=== PATIENT | male | born 1950 | race Caucasian/White ===

== ENCOUNTER 2021-02-09 12:38 | Outpatient (CLI) | payer MEDICARE, SELFPAY ==
--- NOTE | 2021-02-09 12:45 | USCV_ITS ---
Mauro Green Age: 70 Gender: M : 1950 Exam Date: 02/09/2021 13:00 Ordering Phys: Frederic Hernández MD ([email or web address]) Technologist: Rehana Moran [place]am [place] [facility] [place] Indication: CARDIOMYPATHY BP: 120 / 65 HR: 84 Rhythm: Sinus Technical Quality: Good MEASUREMENTS (Male / Female) Normal Values 2D ECHO LV Diastolic Diameter PLAX 6.8 cm 4.2 - 5.9 / 3.9 - 5.3 cm LV Systolic Diameter PLAX 5.8 cm IVS Diastolic Thickness 1.1 cm 0.6 - 1.0 / 0.6 - 0.9 cm IVS Systolic Thickness 1.7 cm LVPW Diastolic Thickness 1.4 cm 0.6 - 1.0 / 0.6 - 0.9 cm LVPW Systolic Thickness 1.8 cm LVOT Diameter 2.0 cm LV Ejection Fraction 2D Teich 32.9 % LV Ejection Fraction MOD 2C 21.9 % LV Ejection Fraction 2C AL 20.3 % LA Diameter 4.3 cm LA Width 3.7 cm LA Height 4.5 cm RA Width 3.2 cm RA Height 4.0 cm Aorta at Sinotubular Diameter 2.7 cm M-MODE Aortic Annulus Diameter 3.4 cm LA Ao Ratio MM 1.2 MV E Point Septal Separation 2.2 cm DOPPLER AV Peak Velocity 130.0 cm/s LVOT Peak Velocity 51.0 cm/s AV Area Cont Eq vti 1.3 cm squared AV Area Cont Eq pk 1.2 cm squared MV Peak Velocity 108.0 cm/s MV Area PHT 4.6 cm squared Mitral E to A Ratio 0.7 MV E' Velocity 41.5 cm/s Mitral E to MV E' Ratio 10.9 Mitral E to LV E' Lateral Ratio 8.5 Mitral E to LV E' Septal Ratio 15.5 TR Peak Velocity 259.4 cm/s TR Peak Gradient 26.9 mmHg TR Mean Velocity 223.3 cm/s TR Mean Gradient 21.4 mmHg TR Velocity Time Integral 81.0 cm TV Peak E Velocity 49.0 cm/s Right Atrial Pressure 3.0 mmHg Pulmonary Artery Systolic Pressu 29.9 mmHg PV Peak Velocity 79.0 cm/s RV Acceleration Time 0.1 s RV Ejection Time 0.3 s RV AcT/ET 0.3 FINDINGS Left Ventricle Diffuse hypokinesia of the left ventricle with ejection fraction of 33%. Mildly dilated LV cavity.Grade I/IV diastolic dysfunction (abnormal relaxation filling pattern), normal to mildly elevated filling pressures. Right Ventricle Normal right ventricular size and systolic function. Right Atrium Normal right atrial size. Left Atrium Mildly increased left atrial size. Mitral Valve Moderate mitral annular calcification. Moderate eccentric mitral regurgitation Aortic Valve Thickened aortic valve. Tricuspid Valve Mild tricuspid valve regurgitation. Pulmonic Valve No gross abnormalities noted Pericardium No pericardial effusion. 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 CONCLUSIONS Diffuse hypokinesia of the left ventricle with ejection fraction of 33%. Mildly dilated LV cavity.Grade I/IV diastolic dysfunction (abnormal relaxation filling pattern), normal to mildly elevated filling pressures. Mildly increased left atrial size. Moderate mitral annular calcification. Moderate eccentric mitral regurgitation. Mild tricuspid valve regurgitation. Thickened aortic valve. Estimated pulmonary artery peak systolic pressure of 30 mmHg There is no pericardial effusion. There are no intracardiac masses. Compared to the study from 09/26/2016, there is significant drop in the LV ejection fraction Dr Frederic Hernández MD [facility] (Electronically Signed) Final Date: 09 February 2021 22:58 S
== END 2021-02-09 12:39 | disposition home or self-care (01) ==
PROVIDERS: PCP Family Medicine; Visit Provider Internal Medicine Cardiovascular Disease
DX: I42.9 Cardiomyopathy, unspecified (principal); I08.3 Combined rheumatic disorders of mitral, aortic and tricuspid valves
CPT/HCPCS: 93306

== ENCOUNTER 2021-03-14 07:36 | Outpatient (CLI) | payer MEDICARE, SELFPAY ==
[2021-03-14 07:45] VITALS: BMI 28.0
--- NOTE | 2021-03-14 07:52 | ECG_ITS ---
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 Interpretive Statements NAME OF STUDY: LEXISCAN SESTAMIBI STRESS TEST INDICATION: Ef 33%, PROCEDURE: At the baseline, the EKG revealed normal sinus rhythm with a poor R wave progression. Nonspecific ST-T changes in the inferolateral leads. The baseline blood pressure was 160/87 mm Hg with a heart rate of 68 beats/min. Lexiscan was infused over a period of 20 seconds. A total of 0.4 milligrams of Lexiscan was infused. The stress phase was continued for a total of 5 minutes. Heart rate at the end of the stress phase was 88 with a blood pressure 137/79. The EKG at the peak infusion revealed no significant changes occasional PVCs were noted during the Lexiscan infusion and recovery phase. Sestamibi was injected 20 seconds after the Lexiscan infusion. Blood pressure at the end of the recovery phase was 145/75 with a heart rate of 86 per minute. CONCLUSION: 1. No significant EKG changes with the LexiScan infusion 2. No LexiScan induced chest pain or cardiac arrhythmia 3. Normal blood pressure and heart rate response 4. Sestamibi/sestamibi perfusion scan pending; see separate report. Electronically Signed On 03-24-2021 0:20:21 CDT by Frederic Hernández M.D. [id number]
--- NOTE | 2021-03-14 07:53 | NMCV_ITS ---
NM megha perf SPECT r/s* [id number] Mauro Green Age: 70 Gender: M : 1950 Exam Date: 03/14/2021 08:44 Ordering Phys: Frederic Hernández MD ([email or web address]) Technologist: BRADFORD Wagner Exam Location: [facility] Indications: PALPITATIONS STRESS TEST Please [facility] IMAGE PROTOCOL Rest/Stress 1 Lexiscan Day Radiopharmaceutical Dose (mCi) Administration Site Administered by Rest: Tc-99m 10.8 IV BRADFORD Vazquez Sestamibi Stress:Tc-99m 32.5 IV BRADFORD Vazquez Sestamibi Rest: 14-Mar-2021 60 Discovery 630 Stress: 14-Mar-2021 30 Discovery 630 0.4mg Lexiscan. Supine position only as patient was unable to lay prone. SPECT RESULTS Technical Quality: Excellent Raw Data Analysis: Normal Image Corrections: No attenuation or motion correction applied Summed Stress Score: 17 Summed Rest Score: 16 Summed Difference Score: 3 PERFUSION FINDINGS Moderate to large area of decreased tracer uptake in the basal mid and apical inferior, basal and mid inferolateral, basal inferoseptal, mid and apical anterior, apical lateral and LV apex. However with the prone imaging, no significant reversibilities were noted. FUNCTIONAL RESULTS (calculated via Gated SPECT) Stress Image LV EF (%): 27 Stress EDV (mL):264 TID: 1.04 Stress ESV (mL):194 FUNCTIONAL FINDINGS: LV wall motion analysis revealed a severe diffuse hypokinesia of the left ventricle, more so of the septum, apex and anterior wall regions. IMPRESSIONS 1. Myocardial perfusion imaging revealing moderate to large area of persistent decreases uptake in the inferior, inferolateral, inferoseptal and apical segments suggesting extensive scarring in the distribution of the left circumflex and right coronary artery predominantly with some involvement of the left artery descending artery. Small areas of reversible defects in the distribution of the right coronary artery and circumflex artery, suggesting areas of grecia-infarction ischemia. However the positive predictive value this finding is limited in view of the inconsistency with the prone imaging. 2. Diminished ejection fraction 27%. 3. Multiple wall motion normalities as mentioned above. 4. Markedly dilated LV cavity with an end-systolic volume of 194 mL No similar previous studies are available for comparison Dr Frederic Hernández MD [facility] (Electronically Signed) Final Date: 15 March 2021 19:58 S
[2021-03-14] MEDS: regadenoson 0.4 Mg/5 ml Syringe IVP (09:59)
[2021-03-14 10:00] VITALS: BP 145/75; PULSE 87
== END 2021-03-14 07:37 | disposition home or self-care (01) ==
PROVIDERS: PCP Family Medicine; Visit Provider Internal Medicine Cardiovascular Disease
DX: R00.2 Palpitations (principal); I25.9 Chronic ischemic heart disease, unspecified
CPT/HCPCS: 78452; 93017; A9500; J2785

== ENCOUNTER → 2021-03-22 08:43 | Outpatient (BNVA) | payer MEDICARE, SELFPAY | PROVIDERS: PCP Family Medicine; Visit Provider Internal Medicine Cardiovascular Disease | DX: R94.39 Abnormal result of other cardiovascular function study (principal); Z01.818 Encounter for other preprocedural examination; Z20.822 Contact with and (suspected) exposure to COVID-19 | CPT/HCPCS: 80048; 85025; 85610; 86850; 86900; 87635 ==

== ENCOUNTER 2021-03-28 06:13 | Outpatient (CLI) | payer MEDICARE, SELFPAY ==
[2021-03-28] VITALS (63 sets, daily range): BP systolic 82–149; BP diastolic 27–80; PULSE 45–80; RESP 7–28; TEMP 36.2–36.6; O2SAT 88–97; BMI 28.3
--- NOTE | 2021-03-28 06:00 | XACV_ITS ---
Ht: 175 cm Wt: 87 kg BSA: 2.08 m2 Gender: Male : 1950 Any Known Allergies: Other Exam Priority: Routine Procedure(s): Procedure Description: Diagnostic procedure Procedure Description: PCI procedure Procedure Description: Left Heart Catheterization Procedure Description: Left ventriculography Procedure Description: Drug Eluting Coronary Stent Procedure Description: PTCA Edgar BLEDSOE; Diagnostic Cath Status: Elective Diagnostic Findings * The left anterior descending artery is a medium caliber vessel which was found to have moderate diffuse disease in the proximal at the mid segment. The ostium of the first and second diagonal and the septal perforators were found to have at least moderate narrowing. After the fourth the septal front end loader operator, the artery appears to be totally occluded. * The left circumflex artery is a medium caliber vessel which was found to have severe diffuse disease proximally. Thee first obtuse marginal artery was found to have 70 to 80% diffuse narrowing proximally. Competitive flow was noted in this vessel. * Intermedius artery is a small to medium caliber vessel which was found to have moderate diffuse disease proximally. * The left main is a medium caliber vessel which was found to have 20 to 30% diffuse irregular narrowing. * The right coronary artery is a medium caliber vessel which was found to have severe diffuse stenosis in the proximal segment. The artery appears to be totally occluded after giving of the first RV branch. * V * enous graft to the right coronary artery was found to be totally occluded. Grade 2 [id number] collaterals were noted filling up the distal segments of the PLV and PDA branches. The saphenous venous graft to the first obtuse marginal branch of the circumflex artery was found to be widely patent. The left internal mammary artery graft to the distal LAD was found to be patent. Mild diffuse disease was noted in the distal LAD. PCI Status: Elective PCI Indication: New Onset Angina <= 2 months Interventional Findings * Proximal Circumflex: 85% stenosis treated with a AB TREK 2.50X15 RX BALLOON, and HILARIO Vega AILYN 2.75X18 PHIL. 0% residual stenosis, ELTON: 3 flow. Conclusions 1. This is a 70-year-old white male with history of atherosclerotic heart disease, high blood pressure, dyslipidemia and LV dysfunction presented with complaints of progressive shortness of breath. He was found to have a significant drop in the elevation fraction from 50% to 33%. The myocardial perfusion mainly revealed small areas of reversible defect in the distribution of the left circumflex artery and the right coronary artery. In view of his ongoing symptoms and the drop in the LV ejection fraction, in order to further evaluate his coronary arteries as well as the graft vessels, a cardiac catheterization was recommended. Patient underwent left heart catheterization with left and right coronary angiogram, LV angiogram and graft angiogram today. The findings are as follows. 2. 20 to 30% diffuse irregular narrowing in the left main. The left and descending artery was found to be totally occluded after the fourth septal front end loader operator. Moderate diffuse disease was noted to the proximal and mid LAD involving the ostium of the diagonal and the septal perforators. The left circumflex artery was found to have a high-grade lesion proximally involving the ostium of the first obtuse marginal artery. The right coronary artery was found to be totally occluded after the first RV branch. Patent STRONG to the LAD and venous graft to the obtuse marginal artery. The venous graft to the right coronary artery was found to be totally occluded. Grade 2 collaterals are noted from the left coronary injection filling of the distal right coronary arteries. 3. I reviewed the cardiac catheterization data with the Dr. Vasquez. It was thought to be appropriate to consider PCI of the circumflex artery lesion. Dr. Vasquez agreed with this plan and took over further management of this patient at this point. 4. Proximal Circumflex was treated with a Balloon, and Drug Eluting Stent. Recommendations * 1-Return to inpatient for close monitoring and routine cath care2-Risk factor modification for secondary prevention3-Statin and aspirin 81 mg life--long, if tolerated4-Continue Plavix 75mg p.o. daily for at least one year. We will assess at the end of one year again to continue if further or not5-Continue optimal medical management6-Follow up with Dr. Hernández in four weeks and your primary care in 10 days. Interventional RX Recommendation: PCI w/o planned CABG Diagnostic RX Recommendation: none Ventriculography Ejection Fraction: 30.0 % LV EDP: 17 mmHg Left Ventriculography Findings: * LV gram was performed in the THOMPSON view. The LV cavity appears to be mildly dilated. There was severe diffuse hypokinesia of the basal and mid anterior wall and basal and mid inferior wall segments. LV ejection fraction was around 30%. No filling defects are noted . No significant mitral valve prolapse or mitral regurgitation. Pressures Phase:Rest AO : 126 / 59 ( 83 ) @ 7:29:00 AM 119 / 53 ( 83 ) @ 7:29:00 AM LV : 117 / 2 / 17 @ 7:28:00 AM 129 / 7 / 17 @ 7:28:00 AM 46 / 5 / 0 @ 7:29:00 AM 134 / 0 / 28 @ 7:29:00 AM 122 / 5 / 16 @ 7:29:00 AM Valves Phase:DefaultPhase AV : 0.0 @ 9:22:16 AM AV Mean Gradient: 0.0 @ 9:22:16 AM Clinical Evaluation EBL: 5mL-10mL Procedural Details Procedure Consent Obtained. Admit Source: Out Patient. Pre-Procedure Time Out. Identified patient by full name and date of as verbalized by the patient/guarantor. Does the consent match the physician's order: Yes. Accurate & Complete Informed Consent: Yes. Inpatient/Outpatient History & Physical on Chart: Yes. If H&P is completed, is and addenduem needed: N/A; If yes, is the addendum complete: Yes. Visualize and Verify Site with Patient/Guarantor: N/A. Relevant Radiology Images available: N/A. Pre-op teaching completed and patient verbalized understanding. The risks, benefits, and alternatives of sedation and/or procedure were discussed by physician. The patient agrees to continue. Procedure started. Correct patient, site and procedure confirmed by cath team. PERRLA. Strong, equal hand family counselor bilaterally. Lungs clear x 5 lobes. IV Site on Arrival: 20 gauge in the left anticubital. Pre Procedural Pulses: right dorsalis pedis was Doppled. Pre Procedural Pulses: left dorsalis pedis was 3+. Pre Procedural Pulses: bilateral posterior tibial was Doppled. Pre Procedural Pulses: left dorsalis pedis was 3+. Pre Procedural Pulses: bilateral radial was 2+. Oxygen started at 2liters/min via nasal canula. bilateral groins was prepped with chloroprep then draped in the usual sterile fashion. Physician notified. Baseline sample Acquired. HR: 56 BPM. Physician arrived. Physician scrubbed in. Immediate Pre-Procedure Time Out. Correct Patient: Yes; Correct Procedure: Yes; Correct Site: Yes; Correct Patient Position: Yes; Correct Supplies: Yes; Dried Flammable Prep: Yes; Blood Products Available: N/A;. Lidocaine 1% infiltrated to the right groin. Arterial access obtained with micropuncture set. A 5 surinamese JL4 catheter in over wire. Multiple views taken of left coronary artery. exchange wire inserted. Catheter out. A 5 surinamese JR4 catheter in over wire. Multiple views taken of right coronary artery. SVG to RCA occluded. exchange wire inserted. wire out. exchange wire inserted. Catheter out. A 5 surinamese IM catheter in over wire. wire out. STRONG to LAD visualized. Catheter out. A 5 surinamese LCB catheter in over wire. SVG's to OM visualized and patent. Dr. Vasquez notified to look at pictures. Catheter removed over the exchange wire. A 5 surinamese Angled Pig catheter in over wire. EDP Sample taken: LV 117/2,17; HR: 49 BPM; SpO2: 99%. LV gram performed in THOMPSON @ 10 mL/second for a total of 30 mL. EDP Sample taken: LV 46/5,0; HR: 52 BPM; SpO2: 98%. Pullback taken: LV 122/5,16; AO 126/59(83); Mean: 0mmHg, Peak to Peak: 0mmHg, SEP: 5sec/min; HR: 51 BPM; SpO2: 98%. Catheter out. Side port of sheath attached to Normal Saline flush at KVO to maintain patency. Dr. Vasquez scrubbed in to perform intervention. Sheath upsized to a 6 Fr. 6 surinamese XB 3.5 guide catheter was inserted over the wire. Mittie guidewire was advanced through the guide catheter to lesion in the prox Circ. Inflation number : 1 A AB TREK 2.50X15 RX BALLOON was prepped and advanced across the Prox CX , then inflated to 14 STEFANIA for 0:28 seconds. Balloon out. Inflation Number : 2 Taran Vega AILYN 2.75X18 PHIL -Lot Number# [id number] exp date: 10-21-2023 was prepped and advanced across the Prox CX. The stent was deployed at 12 STEFANIA for 0:27 seconds. Results checked. Stent balloon out over wire. Wire out. Guide catheter out. ACT drawn. Results 194 seconds. Therapeutic limits - pre-heparin administration 90-150 seconds and monitoring heparin during a vascular procedure >250 seconds. Sheath(s) sutured into position with 2-0 silk and sterile 4x4's and Op-site applied over the site. No oozing or signs and symptoms of hematoma noted. Post Procedure: Pulses reassessed and unchanged. PERRLA. Strong, equal hand family counselor bilaterally. No VTE prophylaxis required. Contrast type used: Omnipaque 300 mgI/mL, 500 mL bottle. Contrast Material : Omnipaque 267 ml. PCI Indication:Left ventrical disfunction. Post-op diagnosis: stent to prox CX. A Suture was successful obtaining hemostatsis at the Right Femoral artery insertion site. Medication's Wasted: Lidocaine 1% = 10 mL. Medication's Wasted: Other = lasix 60 mL. Total IV fluids: 150 mL. Complications: none. Estimated blood loss: 5mL-10mL. Procedure completed. Patient transferred by bed to 1st floor. Arterial sheath flushed and connected to tranducer and pressure bag with heparinized saline. Vital chart was stopped. Access Site Site: Right Femoral artery Sheath Size: 5 Fr Hemostasis Method: Suture Hemostasis Success: Successful Procedure Medications Start: 7:20 AM Stop: 7:20 AM Medication: Versed Amount: 1 mg Route: I.V. Start: 7:20 AM Stop: 7:20 AM Medication: Fentanyl Amount: 50 mcg Route: I.V. Start: 7:34 AM Stop: 7:34 AM Medication: Versed Amount: 1 mg Route: I.V. Start: 7:38 AM Stop: 7:38 AM Medication: Fentanyl Amount: 50 mcg Route: I.V. Start: 7:41 AM Stop: 7:41 AM Medication: Versed Amount: 1 mg Route: I.V. Start: 7:45 AM Stop: 7:45 AM Medication: Heparin Amount: 1500 units Route: I.V. Start: 8:23 AM Stop: 8:23 AM Medication: Versed Amount: 1 mg Route: I.V. Start: 8:51 AM Stop: 8:51 AM Medication: Heparin Amount: 6000 units Route: I.V. Start: 9:00 AM Stop: 9:00 AM Medication: Aggrastat 12.5 mg/250 mL Amount: 48 ml Route: I.V. bolus Start: 9:01 AM Stop: 9:01 AM Medication: Aggrastat 12.5 mg/250 mL Amount: 17.3 ml/hr Route: I.V. drip Start: 9:10 AM Stop: 9:10 AM Medication: Lasix (furosemide) Amount: 40 mg Route: I.V. Start: 9:15 AM Stop: 9:15 AM Medication: Heparin Amount: 3000 units Route: I.V. I, the attending physician, have reviewed and verified all procedure medications. Yes, all medications given per verbal order History/Risk Factors Hypertension: Yes Dyslipidemia: Yes Prior Interventions CABG: Yes Report Signatures Interventional Workflow Finalized by Gerri Vasquez MD on 04/10/2021 10:13 PM Diagnostic Workflow Finalized by Dr Frederic Hernández MD [facility] on 03/28/2021 06:09 PM
[2021-03-28] MEDS: diphenhydrAMINE 50 mg Capsule PO (07:08)
--- NOTE | 2021-03-28 07:15 | W.PM.OPSUD ---
Surgery/Procedure H&P Update DATE OF PROCEDURE: March 28, 2021 DATE H&P PERFORMED: 03/17/21 H&P UPDATE INFORMATION: I have reviewed H&P completed within last 30 days, I have examined patient prior to procedure and No changes to prior documentation PREOP DIAGNOSIS: ASHD/Cardiomyopathy PRIMARY INDICATION FOR PROCEDURE: Abnormal ECHO/ MPI PLANNED PROCEDURE: Operation Date: 03/28/21 07:00 Proposed Procedures p Cardiac Catheterization(Left) - Frederic Hernández MD PATIENT REASSESSED PRIOR TO SEDATION, WITH NO CHANGE NOTED: Yes PHYSICAL EXAM: alert, clear to auscultation bilaterally and regular rate & rhythm AIRWAY EVAL/ANESTHESIA PLAN: normal airway, see other exam findings, ASA III, Monitored Anesthesia, Local Anesthesia, Risks, benefits & alternatives of sedation and/or procedure discussed and Patient agrees to continue as planned
--- NOTE | 2021-03-28 10:00 | PC.NURSE ---
Recieved pt from lab instructor at approximately 0940. Pt had 6 Italian cardiac sheath in right groin connected to pressure bag, no hematoma, swelling or bleeding noted from site. Pulses in right foot palpable. Pt has agrastate running at 17.3 ml/hr IV. Pt had no c/o pain or discomfort at the present time. Call light in reach. Will cont to monitor.
[2021-03-28] MEDS: clopidogrel 300 mg Tablet 600 MG PO (11:35)
[2021-03-28] MEDS: HYDROcodone-acetaminophen 5-325 mg Tablet 1 TAB PO (11:48)
[2021-03-28] MEDS: pantoprazole DR 40 mg Tablet PO (11:48)
[2021-03-28] MEDS: fentaNYL 50 mcg/mL INJ 2mL IVP (12:06)
--- NOTE | 2021-03-28 12:36 | PC.NURSE ---
Aggrastate turned off at [address] Vasquez.
[2021-03-28 12:43] LABS: Partial Thromboplastin Time 162.1 SECONDS (23.9-36.7)
[2021-03-28 15:49] LABS: Partial Thromboplastin Time 30.7 SECONDS (23.9-36.7)
--- NOTE | 2021-03-28 18:00 | PC.NURSE ---
Cardiac sheath pulled at 1716, Pressure was held for 15 min, Pt tolerated well. drsg applied to cath site, dry and intact. No hematoma or excess bleeding noted. Pt had no c/o pain or discomfort at the present time. Call light in reach. Will continue to monitor.
[2021-03-28] MEDS: metoprolol tartrate 25 mg Tablet PO (18:48)
[2021-03-28] MEDS: sacubitril/valsartan 24-26 mg Tablet 1 EACH PO (18:48)
--- NOTE | 2021-03-28 19:00 | PC.NURSE ---
Bedside Pt report was given to EMRE Oliver. Right groin catheter site drsg dry and intact, no hematoma, swelling or bleeding noted. Pt had no c/o pain or discomfort at the present time. No needs voiced. Call light in reach.
[2021-03-29] VITALS (47 sets, daily range): BP systolic 100–149; BP diastolic 60–94; PULSE 61–85; RESP 4–34; TEMP 36.5–36.8; O2SAT 90–96
[2021-03-29 04:45] LABS: Basophils # 0.1 10^3/uL (0.0-0.1); Basophils % 0.6 %; Eosinophils # 0.2 10^3/uL (0.0-0.8); Hematocrit 48.9 % (42.0-52.0); Lymphocytes # 2.2 10^3/uL (0.8-4.8); Lymphocytes % 27.1 %; Mean Corpuscular HGB Conc 32.7 g/dL (30.0-36.0); Mean Corpuscular Hemoglobin 28.6 pg (28.0-34.0); Mean Corpuscular Volume 87.5 fl (80-94); Mean Platelet Volume 10.5 fL (7.4-10.4); Monocytes # 0.5 10^3/uL (0.2-0.9); Monocytes % 6.7 %; Neutrophils % 63.4 %; Nucleated Red Blood Cells % 0 %; Platelet Count 223 10^3/cmm (130-400); Red Blood Count 5.59 10^6/uL (4.1-5.3); Red Cell Distribution Width 13.5 % (12.1-15.1); White Blood Count 8.1 10^3/uL (4.0-10.0)
[2021-03-29 05:08] LABS: Anion Gap 12.9 (5-19); Blood Urea Nitrogen 26 mg/dL (8-23); Calcium 8.2 mg/dL (8.5-10.5); Carbon Dioxide 24 mmol/L (22-29); Chloride 104 mmol/L (98-107); Glucose 93 mg/dL (65-115); Osmolality Calculated 288 mOsm/kg (285-295); Potassium 3.9 mmol/L (3.5-5.1); Sodium 137 mmol/L (136-145)
--- NOTE | 2021-03-29 08:30 | PC.CHAP ---
Pastoral Care Encounter/Spiritual Assessment Type of Contact [] Declined auto travel counselor visit [] Patient/Family/Request visit [] Outpatient visit [] Follow-up visit [] Physician referral [] Code/Alert [x] Routine visit [] Staff referral [] Actively dying [] Patient sleeping [] Family support [] [] Out of room [] Palliative care [] [] Receiving care in room [] Pre-surgical visit [] Trauma [] Long length of stay [] ICU visit [] Other: Relational/Emotional Strength [x] Patient feels connected with others/family/visitors/staff [] Distress [] Loneliness/isolation [] Abandonment Spirituality of Patient [x] Person of Yesenia [x] Attends Yazidism of their Yesenia [x] Believes in Prayer [] Reads Bible or Denominational materials [] There are Spiritual issues to be addressed College Archivist Interventions [x] Prayer [x] Active listening [x] Non-anxious presence [x] Spiritual/emotional support [] Crisis/trauma care [] Spiritual counseling [] Bereavement support [] Provided bereavement packet [] Provided Bible/devotional materials [] Provided toy/stuffed animal, coloring book to patient or family member [] Provided Communion [] Anointing/[place] [] Salvation [x] Completed spiritual assessment [] Other: Impact on Illness or Injury [] Angry [] Fearful [] Anxious [] Often cries [] Exhaustion [] Unable to work [] Unable to attend amish [] Unable to walk/stand [] Unable to read [] Unable to drive [] Unable to eat/drink [] Unable to sleep [] Unable to be with family [] Patient intubated [] Other: Summary Met with Pt and his . Pt had stint place in yesterday and hopes to go home today. Waiting on doctor. While speaking with Pt learned he is from which is where College Archivist was raised. His son [place] College Archivist lived. Time spent with patient 15 m
[2021-03-29] MEDS: levothyroxine 88 mcg Tablet PO (08:39)
[2021-03-29] MEDS: metoprolol tartrate 25 mg Tablet PO (08:39)
[2021-03-29] MEDS: pantoprazole DR 40 mg Tablet PO (08:39)
[2021-03-29] MEDS: sacubitril/valsartan 24-26 mg Tablet 1 EACH PO (08:39)
[2021-03-29] MEDS: clopidogrel 75 mg Tablet PO (08:40)
[2021-03-29] MEDS: amlodipine 5 mg Tablet PO (08:40)
[2021-03-29] MEDS: aspirin 81 mg EC Tablet PO (08:40)
--- NOTE | 2021-03-29 09:42 | PM.PN ---
Subjective Subjective: Interval history: Patient was admitted to hospital following the cardiac catheterization he had a PCI of the he has been doing okay with no chest pain or shortness of breath. Right groin has no hematoma or bleeding. The vital signs remained stable. Proximal left circumflex artery. Medications: Reviewed: Yes Vitals/I&O/Wt Last Vital Signs Temp 97.7 F 03/29/21 03:35 Pulse 70 03/29/21 07:58 Resp 12 03/29/21 07:58 BP 100/60 03/29/21 07:58 Pulse Ox 93 03/29/21 07:58 03/28/21 03/29/21 03/29/21 22:59 06:59 14:59 Intake Total 480 / 480 Output Total 400 / 800 Balance 80 / -320 Weight last 48 hrs Weight 192 lb Physical Exam Narrative: EXAM NARRATIVE: GENERAL: The patient is alert and oriented times three. Not in any acute distress. HEENT: No significant pallor, icterus or lymphadenopathy.Oral cavity: There are no mucous membrane lesions. NECK: Trachea appears to be central. No masses noted. No JVD or thyromegaly appreciated. RESPIRATORY: Chest is symmetrical. No intercostals muscle retraction or any accessory muscle activation. There is no chest wall tenderness. Breath sounds are heard bilaterally. No rales or rhonchi heard. No evidence of any consolidation. BREASTS: Deferred. HEART: The heart sounds are normal. No S3 or S4. Short systolic murmur in the left sternal border. No diastolic murmurs.. No pericardial rub ABDOMEN: No vessel pulsations or distention. No tenderness. No organomegaly appreciated. Bowel sounds are normally heard. : Deferred. RECTAL: Deferred. LYMPHATIC: No lymphadenopathy noted in the neck or groin. EXTREMITIES: Right groin has no hematoma or bleeding. MUSCULOSKELETAL: No acute joint deformities or swelling SKIN: There are no significant rashes or ecchymosis NEUROPSYCHIATRIC: The patient is alert and oriented x3. Appears to be in a good mood. No tremors or rigidity noted. Data : 03/29/21 04:21 03/29/21 04:21 A&P Assessment and plan (1) Atherosclerotic heart disease: Patient status post PCI of the left circumflex details of the cardiac catheterization data, please refer to the report from my 03/28/2021. Importance of compliance to diet, medication and exercise were discussed. Patient seems understand this well. Status: Acute Qualifiers: Coronary Disease-Associated Artery/Lesion type: [place] artery [place] vs. transplanted heart: [place] heart Associated angina: with stable angina Qualified Code(s): I25.118 - Atherosclerotic heart disease of [place] coronary artery with other forms of angina pectoris (2) Hyperlipidemia: May continue on the current medication. Status: Acute Qualifiers: Hyperlipidemia type: mixed hyperlipidemia Qualified Code(s): E78.2 - Mixed hyperlipidemia (3) Cardiomyopathy: Continue to wear the LifeVest. Will have a repeat echocardiogram in 3 months. The need for prophylactic ICD will be decided at that time. Status: Acute Qualifiers: Cardiomyopathy type: unspecified Qualified Code(s): I42.9 - Cardiomyopathy, unspecified (4) Hypertension: Currently normotensive. Continue on the current medication . Status: Acute Qualifiers: Hypertension type: essential hypertension Qualified Code(s): I10 - Essential (primary) hypertension (5) Ventricular arrhythmia: Patient has significant improvement of the arrhythmia since the coronary intervention. May continue the metoprolol. 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 transplanted heart: [place] heart Associated angina: with stable angina Hyperlipidemia E78.2 Hyperlipidemia type: mixed hyperlipidemia Cardiomyopathy I42.9 Cardiomyopathy type: unspecified Hypertension I10 Hypertension type: essential hypertension Ventricular arrhythmia I49.9
--- NOTE | 2021-03-29 11:55 | PC.NURSE ---
Pt discharged home, IV removed no redness or swelling noted. Pts discharge instructions given along with prescription and follow up appointments. Pt had no c/o pain or discomfort at the time of discharge.
== END 2021-03-29 11:55 | disposition home or self-care, planned readmission (81) ==
LOC: CCL 06:16 → CSU 03-29 10:45
PROVIDERS: Internal Medicine Cardiovascular Disease; PCP Family Medicine; Visit Provider Internal Medicine Cardiovascular Disease
DX: I25.118 Atherosclerotic heart disease of native coronary artery with other forms of angina pectoris (principal); I42.9 Cardiomyopathy, unspecified; E78.2 Mixed hyperlipidemia; I10 Essential (primary) hypertension; I49.9 Cardiac arrhythmia, unspecified; Z95.1 Presence of aortocoronary bypass graft; E03.9 Hypothyroidism, unspecified; Z79.82 Long term (current) use of aspirin; I48.91 Unspecified atrial fibrillation; M19.90 Unspecified osteoarthritis, unspecified site
CPT/HCPCS: 36415; 80048; 85025; 85347; 85730; 93459; C1725; C1769; C1874; C1887; C1894; C9600; J1644; J1940; J2250; J3010; J3246; J7030; Q0163; Q9967

== ENCOUNTER → 2021-04-05 10:15 | Outpatient (BNVA) | payer MEDICARE, SELFPAY | PROVIDERS: PCP Family Medicine; Visit Provider Nurse Practitioner Family | DX: I25.118 Atherosclerotic heart disease of native coronary artery with other forms of angina pectoris (principal) | CPT/HCPCS: 80048 ==

== ENCOUNTER 2021-09-06 08:10 | Outpatient (CLI) | payer MEDICARE, SELFPAY ==
--- NOTE | 2021-09-06 09:00 | USCV_ITS ---
Mauro Green Age: 70 Gender: M : 1950 Exam Date: 09/06/2021 08:25 Ordering Phys: Frederic Hernández MD ([email or web address]) Technologist: RICKI Exam Location: [facility] – [place] Indication: EVAL FOR ICD BP: 110 / 60 HR: 47 Rhythm: Sinus Technical Quality: Adequate MEASUREMENTS (Male / Female) Normal Values 2D ECHO LV Diastolic Diameter PLAX 5.5 cm 4.2 - 5.9 / 3.9 - 5.3 cm LV Systolic Diameter PLAX 4.9 cm LV Chamber Size 4.7 cm IVS Diastolic Thickness 1.3 cm 0.6 - 1.0 / 0.6 - 0.9 cm IVS Systolic Thickness 1.6 cm LVPW Diastolic Thickness 1.4 cm 0.6 - 1.0 / 0.6 - 0.9 cm LVPW Systolic Thickness 1.8 cm RV Chamber Size 3.8 cm LVOT Diameter 2.0 cm LV Ejection Fraction 2D Teich 23.6 % LV Ejection Fraction MOD 2C 44.0 % LV Ejection Fraction 2C AL 43.8 % LA Diameter 4.4 cm LA Width 4.0 cm LA Height 4.6 cm RA Width 5.0 cm RA Height 4.3 cm Aorta at Sinotubular Diameter 3.8 cm M-MODE Aortic Annulus Diameter 4.5 cm LA Ao Ratio MM 0.9 MV E Point Septal Separation 0.8 cm FINDINGS Left Ventricle Mildly increased left ventricular cavity size. Diffuse hypokinesia left ventricular ejection fraction around 43% Right Ventricle Normal right ventricular size and systolic function. Right Atrium Mildly increased right atrial size. Left Atrium Mildly increased left atrial size. Mitral Valve Thickened mitral valve. Mild mitral annular calcification. Aortic Valve No gross abnormalities noted Tricuspid Valve No gross abnormalities noted Pulmonic Valve Pulmonic valve not well visualized. Pericardium No pericardial effusion. Aorta Normal aortic annulus size. CONCLUSIONS Diffuse hypokinesia of the left ventricle with reduced ejection fraction of 43%. Mildly dilated LV cavity. Mildly dilated left atrium.. Minimally thickened aortic and mitral valves. There is no pericardial effusion. There are no intracardiac masses. Compared to the study from 02/09/2021, there is significant improvement in the LV ejection fraction, from 33% to 43% Dr Frederic Hernández MD [facility] (Electronically Signed) Final Date: 06 September 2021 15:07 S
== END 2021-09-06 08:11 | disposition home or self-care (01) ==
PROVIDERS: PCP Family Medicine; Visit Provider Internal Medicine Cardiovascular Disease
DX: I42.9 Cardiomyopathy, unspecified (principal); I08.0 Rheumatic disorders of both mitral and aortic valves
CPT/HCPCS: 93308

== ENCOUNTER → 2021-09-27 13:37 | Outpatient (BNVA) | payer MEDICARE, SELFPAY | PROVIDERS: PCP Family Medicine; Visit Provider Internal Medicine Cardiovascular Disease | DX: R94.39 Abnormal result of other cardiovascular function study (principal); I11.0 Hypertensive heart disease with heart failure; I50.20 Unspecified systolic (congestive) heart failure; I25.118 Atherosclerotic heart disease of native coronary artery with other forms of angina pectoris | CPT/HCPCS: 99214 ==

== ENCOUNTER → 2021-12-12 14:10 | Outpatient (BNVA) | payer MEDICARE, SELFPAY | PROVIDERS: PCP Family Medicine; Visit Provider Internal Medicine Cardiovascular Disease | DX: I25.118 Atherosclerotic heart disease of native coronary artery with other forms of angina pectoris (principal); I25.5 Ischemic cardiomyopathy; I49.9 Cardiac arrhythmia, unspecified; I10 Essential (primary) hypertension; E78.2 Mixed hyperlipidemia; Z95.1 Presence of aortocoronary bypass graft | CPT/HCPCS: 99214 ==

== ENCOUNTER → 2022-07-10 10:46 | Outpatient (BNVA) | payer MEDICARE, SELFPAY | PROVIDERS: PCP Family Medicine; Visit Provider Internal Medicine Cardiovascular Disease | DX: I25.5 Ischemic cardiomyopathy (principal); R94.30 Abnormal result of cardiovascular function study, unspecified; I49.9 Cardiac arrhythmia, unspecified; I10 Essential (primary) hypertension; E78.2 Mixed hyperlipidemia; I25.118 Atherosclerotic heart disease of native coronary artery with other forms of angina pectoris; Z98.890 Other specified postprocedural states; Z95.1 Presence of aortocoronary bypass graft | CPT/HCPCS: 99214 ==

== ENCOUNTER → 2022-12-25 15:44 | Outpatient (BNVA) | payer MEDICARE, SELFPAY | PROVIDERS: PCP Family Medicine; Visit Provider Internal Medicine Cardiovascular Disease | DX: I25.10 Atherosclerotic heart disease of native coronary artery without angina pectoris (principal); Z95.1 Presence of aortocoronary bypass graft; I25.5 Ischemic cardiomyopathy; Z98.890 Other specified postprocedural states; E78.2 Mixed hyperlipidemia; I49.8 Other specified cardiac arrhythmias; I10 Essential (primary) hypertension | CPT/HCPCS: 99214 ==

== ENCOUNTER → 2023-06-21 11:05 | Outpatient (BNVA) | payer MEDICARE, SELFPAY | PROVIDERS: PCP Family Medicine; Visit Provider Internal Medicine Cardiovascular Disease | DX: R06.02 Shortness of breath (principal); I10 Essential (primary) hypertension; Z79.899 Other long term (current) drug therapy; I42.9 Cardiomyopathy, unspecified; I25.118 Atherosclerotic heart disease of native coronary artery with other forms of angina pectoris; E78.2 Mixed hyperlipidemia; I49.9 Cardiac arrhythmia, unspecified | CPT/HCPCS: 36415; 80048; 83880; 99214 ==

== ENCOUNTER 2023-07-03 14:59 | Outpatient (CLI) | payer MEDICARE, SELFPAY ==
--- NOTE | 2023-07-03 15:00 | USCV_ITS ---
Mauro Green Age: 72 Gender: M : 1950 Exam Date: 07/03/2023 15:22 Ordering Phys: Frederic Hernández MD ([email or web address]) Technologist: Stefanie Sherwood [place] [facility] [place] [facility] [place]ication: LVEF eval BP: 152 / 70 HR: 65 Rhythm: Other Technical Quality: Adequate MEASUREMENTS (Male / Female) Normal Values 2D ECHO LV Diastolic Diameter PLAX 6.1 cm 4.2 - 5.9 / 3.9 - 5.3 cm LV Systolic Diameter PLAX 4.9 cm IVS Diastolic Thickness 1.1 cm 0.6 - 1.0 / 0.6 - 0.9 cm IVS Systolic Thickness 1.3 cm LVPW Diastolic Thickness 1.1 cm 0.6 - 1.0 / 0.6 - 0.9 cm LVPW Systolic Thickness 1.3 cm LVOT Diameter 2.0 cm LV Ejection Fraction 2D Teich 38.7 % LV Ejection Fraction MOD 2C 41.8 % LV Ejection Fraction 2C AL 45.5 % LA Diameter 4.3 cm LA Width 3.5 cm LA Height 5.1 cm RA Width 3.5 cm RA Height 5.1 cm Aorta at Sinotubular Diameter 3.6 cm IVC Diameter 2.0 cm M-MODE Aortic Annulus Diameter 4.1 cm LA Ao Ratio MM 1.2 MV E Point Septal Separation 1.5 cm DOPPLER AV Peak Velocity 112.0 cm/s LVOT Peak Velocity 80.0 cm/s AV Area Cont Eq vti 2.3 cm squared AV Area Cont Eq pk 2.2 cm squared MV Peak Velocity 84.0 cm/s MV Area PHT 2.8 cm squared Mitral E to A Ratio 0.5 MV E' Velocity 26.0 cm/s Mitral E to MV E' Ratio 9.3 Mitral E to LV E' Lateral Ratio 7.5 Mitral E to LV E' Septal Ratio 12.3 TR Peak Velocity 128.0 cm/s TR Peak Gradient 6.6 mmHg Right Atrial Pressure 5.0 mmHg Pulmonary Artery Systolic Pressu 11.6 mmHg PV Peak Velocity 74.0 cm/s RV Acceleration Time 0.1 s RV Ejection Time 0.3 s RV AcT/ET 0.2 FINDINGS Left Ventricle Hypokinetic basal inferolateral segment. Diffuse hypokinesia of the septum and inferior wall segments. LV ejection fraction on 46%. Mildly dilated LV cavity.Grade I/IV diastolic dysfunction (abnormal relaxation filling pattern), normal to mildly elevated filling pressures. Right Ventricle The right ventricle is normal in size and function. Right Atrium Normal right atrial size. Left Atrium Mildly increased left atrial size. Mitral Valve Thickened mitral valve. Moderate mitral annular calcification. Mild mitral valve regurgitation. Aortic Valve Thickened aortic valve. Tricuspid Valve Trace to mild tricuspid valve regurgitation. Pulmonic Valve Trace pulmonary valve regurgitation. Pericardium Normal pericardium without effusion. Aorta Normal ascending aorta dimension. IVC Normal inferior vena cava. CONCLUSIONS Hypokinetic basal inferolateral segment. Diffuse hypokinesia of the septum and inferior wall segments. LV ejection fraction around 44%. Mildly dilated LV cavity.Grade I/IV diastolic dysfunction (abnormal relaxation filling pattern), normal to mildly elevated filling pressures. Thickened mitral valve. Moderate mitral annular calcification. Mild mitral valve regurgitation. Thickened aortic valve. Trace to mild tricuspid valve regurgitation. Trace pulmonary valve regurgitation. There is no pericardial effusion. There are no intracardiac masses. Compared to the study from 09/06/2021, there may not be significant change Dr Frederic Hernández MD [facility] (Electronically Signed) Final Date: 08 July 2023 18:26 S
== END 2023-07-03 15:00 | disposition home or self-care (01) ==
LOC: RAD 15:01
PROVIDERS: PCP Family Medicine; Visit Provider Internal Medicine Cardiovascular Disease
DX: R06.09 Other forms of dyspnea (principal); I08.3 Combined rheumatic disorders of mitral, aortic and tricuspid valves
CPT/HCPCS: 93306

== ENCOUNTER 2023-07-08 06:27 | Emergency (ER) | payer MEDICARE, SELFPAY ==
[2023-07-08 06:32] VITALS: BP 151/89; PULSE 52; TEMP 36.7; O2SAT 96; BMI 26.9
--- NOTE | 2023-07-08 06:33 | XRR_ITS ---
PROCEDURE INFORMATION: Exam: XR Chest Exam date and time: 07/08/2023 7:00 AM Age: 72 years old Clinical indication: Cough TECHNIQUE: Imaging protocol: Radiologic exam of the chest. Views: 2 views. COMPARISON: CR XR chest 2V* [id number] 10/01/2016 10:49 AM FINDINGS: Lungs: Mild hypoventilatory changes at the left lung base. Pleural spaces: Unremarkable. No pleural effusion. No pneumothorax. Heart/Mediastinum: Unremarkable. No cardiomegaly. Bones/joints: Status post median sternotomy. XR/XR chest 2V* [id number] IMPRESSION: No acute cardiopulmonary disease.
--- NOTE | 2023-07-08 06:34 | ED_ITS ---
HPI - URI/Sore Throat 2 General: Chief Complaint: Upper Respiratory Infection Stated Complaint: cough, flem Time Seen by Provider: 07/08/23 06:31 History of Present Illness: 72-year-old male presents emerged depart [facility] with complaints that he has a productive cough. He states he was diagnosed with pneumonia in April 2023 and he has been intermittently on and off of antibiotics and corticosteroids since that time. He states he finished his last dose of antibiotics and corticosteroids approximately 2 weeks ago and states that he became concerned because he has had a productive cough producing intermittent yellow phlegm. He denies fevers chills or night sweats or shortness of breath. He denies chest pain nausea or vomiting. Review of Systems 2 General: Reports: 10 or more systems reviewed and unremarkable except in HPI and below Resp: Reports: productive cough PFS ED 2 PFSH: Medical History Vitamin D deficiency Hypothyroidism Intermittent claudication Osteoarthritis Cardiac LV ejection fraction 21-30% Hyperlipidemia Atherosclerotic heart disease Afib Cardiomyopathy Hypertension Surgical History History of partial thyroidectomy History of total knee arthroplasty History of open reduction and internal fixation (ORIF) procedure Hx of repair of rotator cuff Hx of foot surgery Hx of cataract extraction Hx of CABG History of endarterectomy Family History Family/Other Cancer Hypertension Diabetes Grandmother CAD (coronary artery disease) Brother CAD (coronary artery disease) Chronic kidney disease (CKD) Father CAD (coronary artery disease) Hypertension Mother Hypertension Sister Cancer Denies family history of Clotting disorder Dementia Suicide Anesthesia complication Bleeding disorder Lung disease Stroke Social History Smoking and tobacco/nicotine status: never used tobacco/nicotine Alcohol intake: never Substance/Drug Use: never Physical Exam 2 Narrative: EXAM NARRATIVE: Constitutional: the patient appears well nourished and with normal development. Vital signs reviewed as documented. HENMT: Normocephalic, atraumatic. Extermal ears with normal appearance without drainage. Nose without drainage, normal appearance. Mucus membranes moist. Neck is supple, No jugular venous distension, trachea is midline, no appreciable carotid bruits. No lymphadenopathy. No meningeal signs. Flexion, extension and lateral rotation is without pain. Eyes: Pupils are equal, round, reactive to light and accommodation. No scleral icterus. Extra-ocular movement are intact. Thorax is symmetrical and with equal rise and fall with respirations. Resp: Lungs are clear to auscultation. No wheezes, rales, crackles or ronchi at present. Cardio: Regular rate and rhythm. Positive S1, S2. No appreciable murmurs, rubs or gallops. GI: Abdominal exam reveals normal bowel sounds to all quadrants. No organomegaly. No obvious palpable masses noted. No hepatomegally appreciated. Soft, nontender to palpation. Extremity: Extremities are non-edematous and both femoral and pedal pulses are 2+ and equal bilaterally. Moves all extremities well, sensation in all extremities. Neuro: Alert and oriented x4, person, place, time and situation. Cranial nerves II through XII are grossly intact, there is no focal neurological deficits that I can appreciate at present. Motor strength in the upper and lower extremities are equal and bilateral 5/5. Psych: Cooperative, calm, normal thought process, appropriate judgment. Skin: No lesions, rashes. No gross abnormalities noted. Back: Symmetrical, no obvious deformity, No CVA tenderness Course 2 Vital Signs: Vital signs: Vital Signs Temperature 98.1 F 07/08/23 06:32 Pulse Rate 59 L 07/08/23 08:12 Respiratory Rate 18 07/08/23 08:12 Blood Pressure 121/76 07/08/23 08:12 Pulse Oximetry 96 07/08/23 08:12 Oxygen Delivery Me thod Room Air 07/08/23 08:12 MDM - URI/Sore Throat Medical Decision Making Physical exam completed and documented, I will obtain a CBC and a CMP as well as a chest x-ray and reevaluate. Differential diagnosis includes pneumonia, recurrent pneumonia, upper respiratory viral illness, Medical Records I reviewed the patient's medical records. Lab Data I reviewed the patient's lab results. 07/08/23 08:25 07/08/23 08:25 Radiology Impressions Chest X-Ray 07/08/23 06:33 IMPRESSION: No acute cardiopulmonary disease. Laboratory Results WBC 5.76 10^3/uL (3.29-11.43) 07/08/23 08:25 RBC 5.48 10^6/uL (3.85-5.65) 07/08/23 08:25 Hgb 15.90 g/dL (11.27-16.99) 07/08/23 08:25 Hct 48.5 % (37-53) 07/08/23 08:25 MCV 88.5 fl (82-101) 07/08/23 08:25 MCH 29.0 pg (27-33) 07/08/23 08: MCHC 32.8 g/dL (30-55) 07/08/23 08:25 RDW 13.4 % (12.1-15.1) 07/08/23 08:25 Plt Count 193 10^3/cmm (157-399) 07/08/23 08:25 MPV 10.0 fL (7.4-10.4) 07/08/23 08:25 Neut % (Auto) 65.2 % 07/08/23 08:25 Lymph % (Auto) 20.7 % 07/08/23 08:25 [place] % (Auto) 7.5 % 07/08/23 08:25 Eos % (Auto) 4.9 % 07/08/23 08:25 Baso % (Auto) 1.4 % 07/08/23 08:25 Neut # (Auto) 3.76 10^3/uL (1.8-7.7) 07/08/23 08:25 Lymph # (Auto) 1.2 10^3/uL (0.8-4.8) 07/08/23 08:25 [place] # (Auto) 0.4 10^3/uL (0.2-0.9) 07/08/23 08:25 Eos # (Auto) 0.3 10^3/uL (0.0-0.8) 07/08/23 08:25 Baso # (Auto) 0.1 10^3/uL (0.0-0.1) 07/08/23 08:25 Nucleated RBC % (auto) 0 % 07/08/23 08:25 Nucleated RBCs # 0.0 /100WBC 07/08/23 08:25 Sodium 138 mmol/L (136-145) 07/08/23 08:25 Potassium 3.9 mmol/L (3.5-5.1) 07/08/23 08:25 Chloride 107 mmol/L (98-107) 07/08/23 08:25 Carbon Dioxide 24 mmol/L (22-29) 07/08/23 08:25 Anion Gap 10.9 (5-19) 07/08/23 08:25 BUN 17 mg/dL (8-23) 07/08/23 08:25 Creatinine 0.9 mg/dL (0.7-1.2) 07/08/23 08:25 GFR Calculation Not Reportable 07/08/23 08:25 Glucose 105 mg/dL (65-115) 07/08/23 08:25 Calculated Osmolality 288 mOsm/kg (285-295) 07/08/23 08:25 Calcium 9.0 mg/dL (8.5-10.5) 07/08/23 08:25 Total Bilirubin 0.6 mg/dL (0.15-1.2) 07/08/23 08:25 AST 9 U/L (0-40) 07/08/23 08:25 ALT 8 U/L (0-41) 07/08/23 08:25 Alkaline Phosphatase 52 U/L (40-130) 07/08/23 08:25 Total Protein 6.3 g/dL (6.6-8.7) L 07/08/23 08:25 Albumin 3.5 g/dL (3.5-5.2) 07/08/23 08:25 Globulin 2.8 g/dL (1.3-4.6) 07/08/23 08:25 All radiology interpretation(s) finalized by discharge Discharge Plan Discharge Patient Disposition: Home Clinical Impression: URI (upper respiratory infection) Qualifiers: URI type: unspecified viral URI Qualified Code(s): J06.9 - Acute upper respiratory infection, unspecified Cough Qualifiers: Cough type: acute Qualified Code(s): R05.1 - Acute cough Condition: Stable Prescriptions: New benzonatate 200 mg capsule 200 mg PO TID PRN (Reason: cough) Qty: 20 0RF guaifenesin 1,200 mg tablet extended release 12hr 1,200 mg PO Q12H Qty: 14 0RF No Action levothyroxine 88 mcg tablet 88 mcg PO DAILY celecoxib 200 mg capsule 200 mg PO BID albuterol sulfate 90 mcg/actuation HFA aerosol inhaler 2 inh inhalation Q6H PRN (Reason: shortness of breath or wheezing) Qty: 6.7 0RF amlodipine 5 mg tablet 5 mg PO DAILY Qty: 90 3RF metoprolol tartrate 25 mg tablet 25 mg PO BID Qty: 180 3RF ezetimibe 10 mg tablet See Rx Instructions .ROUTE .COMPLEX Qty: 90 3RF Dose Instruction: TAKE 1 TABLET EVERY DAY Rx Instructions: TAKE 1 TABLET EVERY DAY Entresto 97-103 mg tablet 1 tab PO BID Qty: 180 3RF Rx Instructions: Dose change - take 1 tab by mouth twice daily clopidogrel 75 mg tablet See Rx Instructions .ROUTE .COMPLEX Qty: 90 3RF Dose Instruction: TAKE 1 TABLET EVERY DAY Rx Instructions: TAKE 1 TABLET EVERY DAY Discharge Orders: Discharge ED (Routine); Ordered 07/08/23 Ordered By: Arnoldo Ramirez Referrals: Zoë Patterson MD [Primary Care Provider] - Discharge Diet: Advance as tolerated Discharge Activity: Resume usual activity Patient Instructions: Opioid Safety, Pain Management Coding Level of Care Code 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
[2023-07-08 06:37] VITALS: BP 151/89; PULSE 70; RESP 18; O2SAT 93
[2023-07-08 08:12] VITALS: BP 121/76; PULSE 59; RESP 18; O2SAT 96
[2023-07-08 08:43] LABS: Basophils # 0.1 10^3/uL (0.0-0.1); Basophils % 1.4 %; Eosinophils # 0.3 10^3/uL (0.0-0.8); Eosinophils % 4.9 %; Hematocrit 48.5 % (37-53); Lymphocytes # 1.2 10^3/uL (0.8-4.8); Lymphocytes % 20.7 %; Mean Corpuscular HGB Conc 32.8 g/dL (30-55); Mean Corpuscular Volume 88.5 fl (82-101); Monocytes # 0.4 10^3/uL (0.2-0.9); Monocytes % 7.5 %; Neutrophils # 3.76 10^3/uL (1.8-7.7); Neutrophils % 65.2 %; Nucleated Red Blood Cells % 0 %; Platelet Count 193 10^3/cmm (157-399); Red Blood Count 5.48 10^6/uL (3.85-5.65); Red Cell Distribution Width 13.4 % (12.1-15.1); White Blood Count 5.76 10^3/uL (3.29-11.43)
[2023-07-08 08:49] LABS: Alanine Aminotransferase 8 U/L (0-41); Albumin Level 3.5 g/dL (3.5-5.2); Alkaline Phosphatase 52 U/L (40-130); Anion Gap 10.9 (5-19); Aspartate Amino Transferase 9 U/L (0-40); Blood Urea Nitrogen 17 mg/dL (8-23); Carbon Dioxide 24 mmol/L (22-29); Chloride 107 mmol/L (98-107); Globulin 2.8 g/dL (1.3-4.6); Glucose 105 mg/dL (65-115); Osmolality Calculated 288 mOsm/kg (285-295); Potassium 3.9 mmol/L (3.5-5.1); Sodium 138 mmol/L (136-145); Total Bilirubin 0.6 mg/dL (0.15-1.2); Total Protein 6.3 g/dL (6.6-8.7)
== END 2023-07-08 09:20 | disposition home or self-care (01) ==
PROVIDERS: Emergency Provider Internal Medicine; PCP Family Medicine
DX: J06.9 Acute upper respiratory infection, unspecified (principal); R05.1 Acute cough; Z79.02 Long term (current) use of antithrombotics/antiplatelets; E78.5 Hyperlipidemia, unspecified; I11.9 Hypertensive heart disease without heart failure; I43 Cardiomyopathy in diseases classified elsewhere; Z95.1 Presence of aortocoronary bypass graft
CPT/HCPCS: 36415; 71046; 80053; 85025; 99284

== ENCOUNTER 2023-07-24 14:25 | Outpatient (CLI) | payer MEDICARE, SELFPAY ==
[2023-07-24 15:04] LABS: Anion Gap 13.4 (5-19); Blood Urea Nitrogen 25 mg/dL (8-23); Calcium 9.6 mg/dL (8.5-10.5); Carbon Dioxide 28 mmol/L (22-29); Chloride 103 mmol/L (98-107); Glucose 127 mg/dL (65-115); NT Pro B Type Natriuretic Pept 830 pg/mL (0-125); Osmolality Calculated 296 mOsm/kg (285-295); Potassium 4.4 mmol/L (3.5-5.1); Sodium 140 mmol/L (136-145)
== END 2023-07-24 14:26 | disposition home or self-care (01) ==
LOC: LAB 14:27
PROVIDERS: PCP Family Medicine; Visit Provider Internal Medicine Cardiovascular Disease
DX: I42.9 Cardiomyopathy, unspecified (principal)
CPT/HCPCS: 36415; 80048; 83880

== ENCOUNTER 2023-08-24 08:28 | Outpatient (CLI) | payer MEDICARE, SELFPAY ==
[2023-08-24 09:23] LABS: Anion Gap 12.8 (5-19); Blood Urea Nitrogen 22 mg/dL (8-23); Calcium 8.4 mg/dL (8.5-10.5); Carbon Dioxide 27 mmol/L (22-29); Chloride 105 mmol/L (98-107); Glucose 87 mg/dL (65-115); NT Pro B Type Natriuretic Pept 1386 pg/mL (0-125); Osmolality Calculated 295 mOsm/kg (285-295); Potassium 3.8 mmol/L (3.5-5.1); Sodium 141 mmol/L (136-145)
== END 2023-08-24 08:29 | disposition home or self-care (01) ==
LOC: LAB 08:29
PROVIDERS: PCP Family Medicine; Visit Provider Internal Medicine Cardiovascular Disease
DX: I42.9 Cardiomyopathy, unspecified (principal)
CPT/HCPCS: 80048; 83880

== ENCOUNTER 2023-11-15 08:26 | Outpatient (CLI) | payer MEDICARE, SELFPAY ==
[2023-11-15 09:08] LABS: Blood Urea Nitrogen 23 mg/dL (8-23); Calcium 8.6 mg/dL (8.5-10.5); Carbon Dioxide 22 mmol/L (22-29); Chloride 110 mmol/L (98-107); Glucose 105 mg/dL (65-115); NT Pro B Type Natriuretic Pept 1630 pg/mL (0-125); Osmolality Calculated 296 mOsm/kg (285-295); Sodium 141 mmol/L (136-145)
== END 2023-11-15 08:27 | disposition home or self-care (01) ==
LOC: LAB 08:27
PROVIDERS: PCP Family Medicine; Visit Provider Internal Medicine Cardiovascular Disease
DX: I25.118 Atherosclerotic heart disease of native coronary artery with other forms of angina pectoris (principal); I42.9 Cardiomyopathy, unspecified; I10 Essential (primary) hypertension
CPT/HCPCS: 36415; 80048; 83880

== ENCOUNTER 2023-12-14 12:15 | Inpatient (IN) | payer MEDICARE, SELFPAY ==
[2023-12-14] VITALS (9 sets, daily range): BP systolic 101–149; BP diastolic 53–78; PULSE 50–62; RESP 16–20; TEMP 36.4–36.9; O2SAT 94–97; BMI 31.0
--- NOTE | 2023-12-14 12:32 | XRR_ITS ---
PROCEDURE INFORMATION: Exam: XR Chest Exam date and time: 12/14/2023 12:45 PM Age: 73 years old Clinical indication: Shortness of breath; Prior surgery; Surgery date: 6+ months; Surgery type: Triple bypass, lower back, left shoulder; Patient HX: HX of thyroid cancer; Additional info: Weakness TECHNIQUE: Imaging protocol: Radiologic exam of the chest. Views: 1 view. COMPARISON: CR XR chest 2V* [id number] 12/31/2023 07:00 FINDINGS: Lungs: Stable old calcified granulomas in the right upper lobe. No acute pulmonary infiltrates are identified. Pleural spaces: Unremarkable. No pleural effusion. No pneumothorax. Heart/Mediastinum: The heart size is stable status post CABG. Bones/joints: Prior median sternotomy. XR/XR chest 1V portable [id number] IMPRESSION: No radiographic evidence of acute cardiopulmonary disease in this patient status post CABG
--- NOTE | 2023-12-14 12:33 | ECG_ITS ---
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 Measurements Intervals [place] Rate: 57 P: -11 [place]: 180 QRS: -4 QRSD: 137 T: 0 QT: 459 QTc: 447 Interpretive Statements SINUS BRADYCARDIA WITH FREQUENT VENTRICULAR PREMATURE COMPLEXES IN A BIGEMINAL PATTERN INTRAVENTRICULAR CONDUCTION DELAY [130+ ms QRS DURATION] INFERIOR MYOCARDIAL INFARCTION , OF INDETERMINATE AGE [40+ ms Q WAVE AND/OR ST/T ABNORMALITY IN II/aVF] INTERPRETATION BASED ON A DEFAULT AGE OF 40 YEARS Compared to ECG 11/21/2017 07:35:44 Intraventricular conduction delay now present Myocardial infarct finding still present Electronically Signed On 12-14-2023 19:08:57 CDT by Frederic Hernández M.D. [id number]
--- NOTE | 2023-12-14 12:34 | ED_ITS ---
HPI - Weakness 2 General: Chief complaint: Weakness Stated complaint: stroke like symptoms Time Seen by Provider: 12/14/23 12:30 History of Present Illness: 73-year-old man with a history of sterling ry artery disease status post CABG, congestive heart failure, hyperlipidemia, hypertension and atrial fibrillation who presents to the emergency room with fatigue, near syncope and jaw and arm pain. He says ever since he started on his diuretic he has been more bradycardic. He had stopped it for a while and the bradycardia improved but his generation mechanic helper told him he needed to be on it so he started back on it. He said over the last week he has been much more fatigued. This morning he woke up and suddenly had feeling of very lightheadedness. He said he almost passed out. He then developed some feeling of pressure in his forearm and his left jaw. Lower extremity swelling is better than it has been in the past. Minimal. No orthopnea. No fevers. He says every morning he does cough up some sputum and this has been going on for some time since he had pneumonia several times last year. No altered mental status. No focal motor deficits. On presentation he was in the waiting room and initial EKG showed bigeminy and nursing stated that his palpated pulse was around 30. Review of Systems 2 Narrative: Constitutional symptoms: Negative except as documented in HPI. Skin symptoms: Negative except as documented in HPI. Eye symptoms: Negative except as documented in HPI. ENMT symptoms: Negative except as documented in HPI. Respiratory symptoms: Negative except as documented in HPI. Cardiovascular symptoms: Negative except as documented in HPI. Gastrointestinal symptoms: Negative except as documented in HPI. Genitourinary symptoms: Negative except as documented in HPI. Musculoskeletal symptoms: Negative except as documented in HPI. Neurologic symptoms: Negative except as documented in HPI. Psychiatric symptoms: Negative except as documented in HPI. Endocrine symptoms: Negative except as documented in HPI. PFSH ED 2 PFSH: Medical History Vitamin D deficiency Hypothyroidism Intermittent claudication Osteoarthritis Cardiac LV ejection fraction 21-30% Hyperlipidemia Atherosclerotic heart disease Afib Cardiomyopathy Hypertension Surgical History History of partial thyroidectomy History of total knee arthroplasty History of open reduction and internal fixation (ORIF) procedure Hx of repair of rotator cuff Hx of foot surgery Hx of cataract extraction Hx of CABG History of endarterectomy Family History Family/Other Cancer Hypertension Diabetes Grandmother CAD (coronary artery disease) Brother CAD (coronary artery disease) Chronic kidney disease (CKD) Father CAD (coronary artery disease) Hypertension Mother Hypertension Sister Cancer Denies family history of Clotting disorder Dementia Suicide Anesthesia complication Bleeding disorder Lung disease Stroke Social History Smoking and tobacco/nicotine status: never used tobacco/nicotine Alcohol intake: never Substance/Drug Use: never Physical Exam 2 Narrative: EXAM NARRATIVE: General: Alert, no acute distress. Skin: Warm, dry. Head: Normocephalic, atraumatic. Neck: Supple, trachea midline. Eye: Extraocular movements are intact. Ears, nose, mouth and throat: mucosa moist. Cardiovascular: Regular, bradycardic, normal peripheral perfusion. Respiratory: Lungs are clear to auscultation, respirations are non-labored, breath sounds are equal, Symmetrical chest wall expansion. Gastrointestinal: Soft, Nontender, Non distended, Normal bowel sounds. Musculoskeletal: Normal ROM, no deformity. Neurological: Alert and oriented, No focal neurological deficit observed. Psychiatric: Cooperative, appropriate mood & affect. Course 2 Vital Signs: Vital signs: Vital Signs Temperature 97.5 F L 12/14/23 12:22 Pulse Rate 54 L 12/14/23 12:27 Respiratory Rate 18 12/14/23 12:27 Blood Pressure 123/71 12/14/23 12:27 Pulse Oximetry 97 12/14/23 12:27 Oxygen Delivery Me thod Room Air 12/14/23 12:27 MDM - Weakness Medical Decision Making Medical decision making: Differential diagnosis including but not limited to and based on the above HPI, review of systems and physical exam: In this patient with coronary artery disease and congestive heart failure with near syncope and bradycardia would have concern for acute coronary syndrome. Heart failure. Renal failure. I feel likely his symptoms are related to the bradycardia so workup was initiated to evaluate this. Orders placed to evaluate differential diagnosis based on the above differential, HPI and physical exam EKG: Time 1220. Rate 57. Frequent PVCs/bigeminy. Actual rate likely more 28 to 29. Sinus bradycardia, No ST-T changes, no ectopy, normal NE & QRS intervals, This was reviewed and interpreted by myself the ER physician 1222 Lab Review: Laboratory results were reviewed and interpreted by myself the emergency room physician. White count is 7. Hemoglobin is a bit elevated at 17 but he is often slightly elevated. His BUN and creatinine are stable with not slightly higher than usual at 27 and 1.3. Troponin is 24. Urinalysis is clear. Chest x-ray: No acute process. No infiltrate. No pneumothorax. No pulmonary edema. Stable cardiomegaly. Sternotomy wires in place. This was reviewed and interpreted by myself the emergency room physician. I also reviewed the radiology report. Consultation: I spoke with Dr. Shields with cardiology. He will consult on the patient. Recommends holding metoprolol. Continue cardiac enzymes. Admit to the hospitalist. Consultation: I spoke with the hospitalist on-call Dr. Rocha who agrees to admission to the cardiac stepdown unit. He recommends addition of magnesium and TSH. Have added those and a proBNP. I reviewed the patient's medical record. Reexamination: Patient remained stable. No increased work of breathing. No altered mental status. No focal motor deficits. He remains bradycardic. He has gone in and out of bigeminy as he has been here Discussed admission with him. Assessment and plan: Bradycardia Frequent PVCs Bigeminy Chest pain equivalent Near syncope -I discussed the patient with the hospitalist on-call who is admitting the patient. - Discussed findings and plan with patient. Answered any questions. - All laboratory values were reviewed and interpreted personally by myself, the ER physician - All imaging was reviewed and interpreted personally by myself, the ER physician. - Evaluation and treatment of this problem were appropriate in the emergency setting Lab Data 12/14/23 12:43 12/14/23 12:43 Radiology Impressions Chest X-Ray 12/14/23 12:32 IMPRESSION: No radiographic evidence of acute cardiopulmonary disease in this patient status post CABG Laboratory Results WBC 7.35 10^3/uL (3.29-11.43) 12/14/23 12:43 RBC 6.04 10^6/uL (3.85-5.65) H 12/14/23 12:43 Hgb 17.40 g/dL (11.27-16.99) H 12/14/23 12:43 Hct 53.0 % (37-53) 12/14/23 12:43 MCV 87.7 fl (82-101) 12/14/23 12:43 MCH 28.8 pg (27-33) 12/14/23 12:43 MCHC 32.8 g/dL (30-55) 12/14/23 12:43 RDW 14.3 % (12.1-15.1) 12/14/23 12:43 Plt Count 215 10^3/cmm (157-399) 12/14/23 12:43 MPV 10.1 fL (7.4-10.4) 12/14/23 12:43 Neut % (Auto) 60.1 % 12/14/23 12:43 Lymph % (Auto) 28.6 % 12/14/23 12:43 Dyer % (Auto) 6.9 % 12/14/23 12:43 Eos % (Auto) 2.9 % 12/14/23 12:43 Baso % (Auto) 1.0 % 12/14/23 12:43 Neut # (Auto) 4.42 10^3/uL (1.8-7.7) 12/14/23 12:43 Lymph # (Auto) 2.1 10^3/uL (0.8-4.8) 12/14/23 12:43 Dyer # (Auto) 0.5 10^3/uL (0.2-0.9) 12/14/23 12:43 Eos # (Auto) 0.2 10^3/uL (0.0-0.8) 12/14/23 12:43 Baso # (Auto) 0.1 10^3/uL (0.0-0.1) 12/14/23 12:43 Nucleated RBC % (auto) 0 % 12/14/23 12:43 Nucleated RBCs # 0.0 /100WBC 12/14/23 12:43 Sodium 140 mmol/L (136-145) 12/14/23 12:43 Potassium 4.3 mmol/L (3.5-5.1) 12/14/23 12:43 Chloride 107 mmol/L (98-107) 12/14/23 12:43 Carbon Dioxide 22 mmol/L (22-29) 12/14/23 12:43 Anion Gap 15.3 (5-19) 12/14/23 12:43 BUN 27 mg/dL (8-23) H 12/14/23 12:43 Creatinine 1.3 mg/dL (0.7-1.2) H 12/14/23 12:43 GFR Calculation Not Reportable 12/14/23 12:43 Glucose 79 mg/dL (65-115) 12/14/23 12:43 Calculated Osmolality 294 mOsm/kg (285-295) 12/14/23 12:43 Lactic Acid 1.3 mmol/L (0.5-2.2) 12/14/23 12:43 Calcium 8.6 mg/dL (8.5-10.5) 12/14/23 12:43 Total Bilirubin 0.4 mg/dL (0.15-1.2) 12/14/23 12:43 AST 16 U/L (0-40) 12/14/23 12:43 ALT 17 U/L (0-41) 12/14/23 12:43 Alkaline Phosphatase 57 U/L (40-130) 12/14/23 12:43 Troponin T Baseline 24 ng/L (0-15) H 12/14/23 12:43 Total Protein 6.8 g/dL (6.6-8.7) 12/14/23 12:43 Albumin 4.2 g/dL (3.5-5.2) 12/14/23 12:43 Globulin 2.6 g/dL (1.3-4.6) 12/14/23 12:43 Urine Color Yellow (Yellow) 12/14/23 12:30 Urine Appearance Clear (CLEAR) 12/14/23 12:30 Urine pH 5 (5-7) 12/14/23 12:30 Ur Specific Elkins 1.020 (1.005-1.030) 12/14/23 12:30 Urine Protein Neg (Negative) 12/14/23 12:30 Urine Glucose (UA) Norm (Normal) 12/14/23 12:30 Urine Ketones Negative (Negative) 12/14/23 12:30 Urine Blood Neg (Negative) 12/14/23 12:30 Urine Nitrate Negative (Negative) 12/14/23 12:30 Urine Bilirubin Neg (Negative) 12/14/23 12:30 Urine Urobilinogen Norm mg/dL (Negative) 12/14/23 12:30 Ur Leukocyte Esterase Negative (Negative) 12/14/23 12:30 Urine RBC None /hpf (0-2) 12/14/23 12:30 Urine WBC Rare /hpf (0-5) 12/14/23 12:30 Ur Squamous Epith Cells Rare /hpf (0-5) 12/14/23 12:30 Amorphous Sediment Not Reportable 12/14/23 12:30 Urine Bacteria None /hpf (NONE) 12/14/23 12:30 All radiology interpretation(s) finalized by discharge Discharge Plan Discharge Patient Disposition: Admitted As Inpatient Admit Provider: Capo Rocha Clinical Impression: Bradycardia, Frequent PVCs, Bigeminy, Chest pain, Near syncope Condition: Stable Coding Level of Care Code ED Electrical Instrument Repairer for Samuel Zacarias
[2023-12-14 12:48] LABS: Basophils # 0.1 10^3/uL (0.0-0.1); Eosinophils # 0.2 10^3/uL (0.0-0.8); Eosinophils % 2.9 %; Lymphocytes # 2.1 10^3/uL (0.8-4.8); Lymphocytes % 28.6 %; Mean Corpuscular HGB Conc 32.8 g/dL (30-55); Mean Corpuscular Hemoglobin 28.8 pg (27-33); Mean Corpuscular Volume 87.7 fl (82-101); Mean Platelet Volume 10.1 fL (7.4-10.4); Monocytes # 0.5 10^3/uL (0.2-0.9); Monocytes % 6.9 %; Neutrophils # 4.42 10^3/uL (1.8-7.7); Neutrophils % 60.1 %; Nucleated Red Blood Cells % 0 %; Platelet Count 215 10^3/cmm (157-399); Red Blood Count 6.04 10^6/uL (3.85-5.65); Red Cell Distribution Width 14.3 % (12.1-15.1); White Blood Count 7.35 10^3/uL (3.29-11.43)
[2023-12-14 13:00] LABS: Urine Appearance Clear (CLEAR); Urine Color Yellow (Yellow); pH Urine 5 (5-7)
[2023-12-14 13:01] LABS: Add Urine Culture? No; Bilirubin Urine Neg (Negative); Blood Urine Neg (Negative); Glucose Urine UA Norm (Normal); Ketones Urine Negative (Negative); Leukocyte Esterase Urine Negative (Negative); Nitrate Urine Negative (Negative); Protein Urine Neg (Negative); Squamous Epithelial Cell Urine RARE /hpf (0-5); Urobilinogen Urine Norm (Negative); WBC Urine RARE /hpf (0-5)
[2023-12-14 13:05] LABS: Alanine Aminotransferase 17 U/L (0-41); Albumin Level 4.2 g/dL (3.5-5.2); Alkaline Phosphatase 57 U/L (40-130); Anion Gap 15.3 (5-19); Aspartate Amino Transferase 16 U/L (0-40); Blood Urea Nitrogen 27 mg/dL (8-23); Calcium 8.6 mg/dL (8.5-10.5); Carbon Dioxide 22 mmol/L (22-29); Chloride 107 mmol/L (98-107); Creatinine Clr Calc Pharmacy 53.2465; Globulin 2.6 g/dL (1.3-4.6); Glucose 79 mg/dL (65-115); Osmolality Calculated 294 mOsm/kg (285-295); Potassium 4.3 mmol/L (3.5-5.1); Sodium 140 mmol/L (136-145); Total Bilirubin 0.4 mg/dL (0.15-1.2); Total Protein 6.8 g/dL (6.6-8.7); Troponin(5th) Baseline 24 ng/L (0-15)
[2023-12-14 13:06] LABS: Lactic Sepsis W/Reflex 1.3 mmol/L (0.5-2.2)
--- NOTE | 2023-12-14 14:04 | P.HP_ITS ---
Providers/Chief Complaint 2 Admitting Physician: Capo Rocha MD Primary Care Provider: Zoë Patterson MD Chief Complaint: stroke like symptoms History of Present Illness Mauro Green is a 73 year old male with past medical history of CAD post CABG in 2017, post PCI in 2020, ischemic cardiomyopathy which is improved to 43% in 2021, hypothyroidism was brought into the ER today of dizzy spells and episode of almost passing out. As per the patient he was started on diuretics few months ago after which his heart rate has been dropping very frequently. He has always dealt with missed beats and heart rate running in 50s but since being on diuretics his heart rate has been dropping down into 30s. He has been feeling weaker, more fatigued for the last few weeks. Today morning when he woke up he was having dizzy spells and almost passed out along with episode of heaviness in his jaw going down his left arm. Denies any nausea, syncope, falls. Compliant with medications. Review of Systems 2 General: Reports: 10 or more systems reviewed and unremarkable except in HPI and below Const: Denies: fever(s), chills, body aches, change in appetite, change in weight, malaise, night sweats, diaphoresis, change in sleep pattern, daytime sleepiness or snoring Eyes: Denies: change in vision, blurry vision, photophobia, eye discomfort or eye discharge ENMT: Denies: throat pain, enlarged tonsils, hoarseness, mouth pain, oral sores, dry mouth, tinnitus, nasal congestion or post nasal drip Card: Denies: chest pain, palpitations, irregular heart rhythm, edema, swelling of feet/ankles, lightheadedness, syncope, pre-syncope, dyspnea on exertion, orthopnea, leg pain with exertion or acrocyanosis Resp: Denies: dyspnea, productive cough, non-productive cough, wheezing, stridor, pain on inspiration, change in phlegm color, hemoptysis or chest congestion GI: Denies: abdominal pain, nausea, vomiting, hematemesis, coffee ground emesis, dysphagia, heartburn, diarrhea, constipation, bloating, GI cramping, change in bowel habits, pain on defecation, hematochezia or melena : Denies: flank pain, difficulty urinating, dysuria, urinary frequency, urinary urgency, urinary hesitancy, urinary dribbling, difficulty starting urination, change in urine stream, nocturia or hematuria Musc: Denies: neck pain, back pain, extremity pain, joint pain, joint swelling, joint redness, joint stiffness or limited range of motion Neuro: Denies: headache(s), numbness in extremities, weakness in extremities, sensory changes, lack of coordination, difficulty walking, frequent falls, dizziness, vertigo, confusion, Slurred speech present, difficulty communicating thoughts or seizure-like activity Psych: Denies: anxiety, depression, mood swings, panic attacks, hopelessness or irritability Endo: Denies: polyuria, polydipsia, tired all the time, cold intolerance, excessive sweating, flushing or heat intolerance Murali/Lymph: Denies: easy bruising or easy bleeding All/Imm: Denies: tongue swelling, facial swelling or acute wheezing Medications/Allergies Home Medications Medication Instructions Recorded Confirmed Last Taken Type celecoxib 200 mg capsule 200 mg PO BID 12/12/21 12/14/23 12/14/23 History sacubitril 97 mg-valsartan 103 mg 1 tab PO BID #180 tabs 02/28/23 12/14/23 12/14/23 Rx tablet (Entresto) spironolactone 25 mg tablet 25 mg PO DAILY #30 tabs 10/29/23 12/14/23 12/14/23 Rx amlodipine 5 mg tablet 5 mg PO DAILY 12/14/23 12/14/23 12/14/23 History clopidogrel 75 mg tablet 75 mg PO DAILY 12/14/23 12/14/23 12/14/23 History ezetimibe 10 mg tablet 10 mg PO DAILY 12/14/23 12/14/23 12/14/23 History furosemide 20 mg tablet (Lasix) 20 mg PO DAILY PRN Edema 12/14/23 12/14/23 Unknown History levothyroxine 100 mcg tablet 100 mcg PO DAILY 12/14/23 12/14/23 12/14/23 History metoprolol tartrate 25 mg tablet 25 mg PO BID 12/14/23 12/14/23 12/14/23 History omeprazole 20 mg capsule,delayed 20 mg PO DAILY 12/14/23 12/14/23 12/14/23 History release potassium chloride 8 mEq 8 meq PO DAILY PRN Edema 12/14/23 12/14/23 Unknown History capsule,extended release Allergies Allergy/AdvReac Type Severity Reaction Status Date / Time hydrocodone Allergy Unknown Unknown Verified 07/08/23 06:36 oxycodone Allergy Unknown Unknown Verified 07/08/23 06:36 furosemide AdvReac Intermediate ADR/ALGY-Hy Verified 08/31/23 14:59 potension carvedilol AdvReac erectile Verified 07/08/23 06:36 dysfunction simvastatin AdvReac muscle pain Verified 07/08/23 06:36 PFSH Acute 2 PFSH: Medical History (Updated 12/14/23 @ 14:21 by Nilda Mccabe MD) Vitamin D deficiency Hypothyroidism Intermittent claudication Osteoarthritis Cardiac LV ejection fraction 21-30% Hyperlipidemia Atherosclerotic heart disease Afib Cardiomyopathy Hypertension Surgical History (Updated 12/14/23 @ 15:22 by Capo Rocha MD) History of PTCA History of partial thyroidectomy History of total knee arthroplasty History of open reduction and internal fixation (ORIF) procedure Hx of repair of rotator cuff Hx of foot surgery Hx of cataract extraction Hx of CABG History of endarterectomy Family History Family/Other Cancer Hypertension Diabetes Grandmother CAD (coronary artery disease) Brother CAD (coronary artery disease) Chronic kidney disease (CKD) Father CAD (coronary artery disease) Hypertension Mother Hypertension Sister Cancer Denies family history of Clotting disorder Dementia Suicide Anesthesia complication Bleeding disorder Lung disease Stroke Social History Smoking and tobacco/nicotine status: never used tobacco/nicotine Alcohol intake: never Substance/Drug Use: never Vitals/I&O/Wt Last Vital Signs Temp 97.5 F L 12/14/23 12:22 Pulse 54 L 12/14/23 12:27 Resp 18 12/14/23 12:27 BP 123/71 12/14/23 12:27 Pulse Ox 97 12/14/23 12:27 O2 Del Method Room Air 12/14/23 12:27 Weight last 48 hrs Weight 86.183 kg Physical Exam 2 Narrative: General: No acute distress, AO x3, anxious HEENT: PERRLA, pupils bilaterally equal and reactive Chest: Normal vesicular breath sounds, no added sounds, equal good air entry bilaterally CVS: S1-S2 regular, no murmurs, bradycardia , no gallops, no rubs Abdomen: Soft, nontender, no organomegaly, bowel sounds present Neuro: No focal deficits, no facial deformity, AO x3, power 5/5 in all limbs Data 12/14/23 12:43 12/14/23 12:43 A&P Assessment and plan (1) Near syncope: Presyncope episode along with weakness and fatigue ongoing for last few weeks worsened today. Found to have bradycardia with bigeminy and frequent VPCs in the ER. Telemetry. Cycle troponins. Hold off on home dose of metoprolol. Hold off on diuretics. Monitor electrolytes with potassium target around 4, magnesium around 2. Cardiology has been consulted from the ER. Fall precautions, aspiration precaution. (2) Bradycardia: (3) Bigeminy: (4) Frequent PVCs: (5) Ischemic cardiomyopathy: Last echocardiogram from July 2023 showed an EF of 46% with dilated LV cavity, grade 1 diastolic dysfunction, mild MR. Currently euvolemic to slightly dehydrated. Hold off on diuretics. Normal saline 50 cc/h for gentle hydration for 1 bag. (6) Hx of CABG: With symptoms of heaviness and jaw going down the left arm. Continue with home dose of Plavix, ezetimibe. Check A1c, lipid panel. Cycle troponins. Plan Acute kidney injury: Baseline creatinine around 1.1. Currently 1.3. Gentle hydration as above. Urine lites, urine creatinine. Hypertension: Goal blood pressure less than 140/90 mmHg. Hold off on home dose of Entresto. Continue with home dose of amlodipine. Uptitrate for goal blood pressure. CODE STATUS: Discussed in detail with the patient. He is okay with ICU admission, pacemaker implantation but not okay with chest compressions or resuscitation. Limited resuscitation CODE STATUS Cardiac diet Protonix OPD prophylaxis Heparin 5000 every 12 hourly for DVT prophylaxis Attestations 2 Medical Necessity Statement*: Admission for more than 2 midnights for management of presyncope in setting of bradycardia and bigeminy in a patient with history of CABG Diagnoses Near syncope R55 Bradycardia R00.1 Bigeminy I49.8 Frequent PVCs I49.3 Ischemic cardiomyopathy I25.5 Hx of CABG Z95.1
[2023-12-14 14:30] LABS: Amphetamines Screen Urine Negative (Negative); Barbiturates Screen Urine Negative (Negative); Benzodiazepines Screen Urine Negative (Negative); Cocaine Screen Urine Negative (Negative); Opiate Screen Urine Negative (Negative); PCP Screen Urine Negative (Negative); THC Screen Urine Negative (Negative)
[2023-12-14 14:32] LABS: Procalcitonin 0.05 ng/mL (0-0.5); Thyroid Stimulating Hormone 0.95 uIU/mL (0.27-4.20)
--- NOTE | 2023-12-14 14:33 | ECG_ITS ---
[facility] Test Date: 2023-12-14 Pat Name: Mauro Green Department: Room: 111 Gender: Male Social Professionals: : 1950 Requested By: Nilda Jean Order Number: [id number] Bryanna MD: Frederic Hernández M.D. Measurements Intervals [place] Rate: 46 P: 50 CO: 180 QRS: 10 QRSD: 145 T: 27 QT: 455 QTc: 402 Interpretive Statements SINUS BRADYCARDIA WITH OCCASIONAL VENTRICULAR PREMATURE COMPLEXES INTRAVENTRICULAR CONDUCTION DELAY [130+ ms QRS DURATION] POSSIBLE INFERIOR MYOCARDIAL INFARCTION , PROBABLY OLD [30 ms Q WAVE IN II/aVF] Compared to ECG 12/14/2023 12:20:36 No significant changes Electronically Signed On 12-14-2023 19:19:25 CDT by Frederic Hernández M.D. [id number]
[2023-12-14 14:36] LABS: Potassium, Radom Urine 46 mmol/L; Urine Random Chloride 175 mmol/L; Urine Random Sodium 157 mmol/L
[2023-12-14 14:43] LABS: Magnesium 1.8 mg/dL (1.7-2.3)
[2023-12-14 14:52] LABS: Troponin 5 2HR 21.71 ng/L (0-15)
[2023-12-14 14:53] LABS: Troponin 5 2HR Delta -2.29 ABS# (0-10)
[2023-12-14 15:14] LABS: NT Pro B Type Natriuretic Pept 1271 pg/mL (0-125)
--- NOTE | 2023-12-14 15:34 | PC.NURSE ---
Patient transferred from ED to CSU at 1520 via a bed. Patient is able to ambulated from the ED bed to the room bed.
[2023-12-14 15:37] LABS: Urine Creatinine 123 mg/dL (39-259)
[2023-12-14] MEDS: heparin 5,000 unit/mL INJ 1 mL 5000 UNIT SUBCUT (16:00)
[2023-12-14] MEDS: pantoprazole 40 mg SDV IVP (16:01)
[2023-12-14] MEDS: sodium chloride 0.9% 1,000 ML 50 ML IV (16:01)
[2023-12-14 16:23] LABS: Iron 107 ug/dL (59-158); Percent Saturation 39.4 % (20-50); Total Iron Binding Capacity 271 mcg/dl; Unsaturated Iron Binding 164 ug/dL (112-347)
[2023-12-14 16:30] LABS: Vitamin B12 396 pg/mL (232-1245)
--- NOTE | 2023-12-14 18:33 | ECG_ITS ---
[facility] Test Date: 2023-12-14 Pat Name: Mauro Green Department: Room: 105 Gender: Male Wax Pattern Assembler: : 1950 Requested By: Nilda Jean Order Number: [id number] Bryanna MD: Gopi Shields M.D. Measurements Intervals [place] Rate: 58 P: 56 OR: 179 QRS: 6 QRSD: 146 T: 35 QT: 449 QTc: 445 Interpretive Statements SINUS BRADYCARDIA INTRAVENTRICULAR CONDUCTION DELAY [130+ ms QRS DURATION] INFERIOR MYOCARDIAL INFARCTION , OF INDETERMINATE AGE [40+ ms Q WAVE AND/OR ST/T ABNORMALITY IN II/aVF] Compared to ECG 12/14/2023 14:54:24 Ventricular premature complex(es) no longer present Myocardial infarct finding still present Electronically Signed On 12-15-2023 21:38:25 CDT by Gopi Shields M.D. [id number]
[2023-12-15] VITALS (66 sets, daily range): BP systolic 95–157; BP diastolic 46–92; PULSE 53–106; RESP 7–27; TEMP 36.4–36.8; O2SAT 91–97; BMI 30.7
[2023-12-15 02:58] LABS: Basophils # 0.1 10^3/uL (0.0-0.1); Basophils % 0.9 %; Eosinophils # 0.3 10^3/uL (0.0-0.8); Eosinophils % 4.5 %; Hematocrit 46.9 % (37-53); Lymphocytes # 1.9 10^3/uL (0.8-4.8); Lymphocytes % 28.8 %; Mean Corpuscular HGB Conc 32.8 g/dL (30-55); Mean Corpuscular Hemoglobin 28.9 pg (27-33); Mean Platelet Volume 9.9 fL (7.4-10.4); Monocytes # 0.5 10^3/uL (0.2-0.9); Monocytes % 7.7 %; Neutrophils # 3.73 10^3/uL (1.8-7.7); Neutrophils % 57.5 %; Nucleated Red Blood Cells % 0 %; Platelet Count 178 10^3/cmm (157-399); Red Blood Count 5.33 10^6/uL (3.85-5.65); Red Cell Distribution Width 14.3 % (12.1-15.1); White Blood Count 6.49 10^3/uL (3.29-11.43)
[2023-12-15 03:11] LABS: Estmated Average Glucose 108; Hemoglobin A1C 5.4 % (4.0-6.0)
[2023-12-15 03:16] LABS: Chol HDL Ratio 4.83 mg/dL (1.0-5.00); Cholesterol 174 mg/dL (0-200); HDL Cholesterol 36 mg/dL (60-100); LDL Cholesterol Calculated 117 mg/dL (50-129); LDL HDL Ratio 3.25 RATIO (0.00-3.22); Triglycerides 103 mg/dL (0-150)
[2023-12-15 03:20] LABS: Alanine Aminotransferase 13 U/L (0-41); Albumin Level 3.4 g/dL (3.5-5.2); Alkaline Phosphatase 45 U/L (40-130); Anion Gap 13.7 (5-19); Aspartate Amino Transferase 11 U/L (0-40); Blood Urea Nitrogen 22 mg/dL (8-23); Calcium 8.1 mg/dL (8.5-10.5); Carbon Dioxide 21 mmol/L (22-29); Chloride 113 mmol/L (98-107); Globulin 2.4 g/dL (1.3-4.6); Glucose 85 mg/dL (65-115); Magnesium 1.7 mg/dL (1.7-2.3); Osmolality Calculated 301 mOsm/kg (285-295); Phosphorus 3.5 mg/dL (2.5-4.5); Potassium 3.7 mmol/L (3.5-5.1); Sodium 144 mmol/L (136-145); Total Bilirubin 0.4 mg/dL (0.15-1.2); Total Protein 5.8 g/dL (6.6-8.7)
[2023-12-15 03:30] LABS: Folate Level 6.6 ng/mL (4.5-32.2)
[2023-12-15] MEDS: heparin 5,000 unit/mL INJ 1 mL 5000 UNIT SUBCUT (03:42)
[2023-12-15] MEDS: clopidogrel 75 mg Tablet PO (08:15)
[2023-12-15] MEDS: levothyroxine 88 mcg Tablet PO (08:15)
[2023-12-15] MEDS: ezetimibe 10 mg Tablet PO (08:16)
[2023-12-15] MEDS: amlodipine 5 mg Tablet PO (08:16)
[2023-12-15] MEDS: bisacodyl 5 mg Tablet 10 MG PO (08:16)
--- NOTE | 2023-12-15 08:40 | USCV_ITS ---
Peter Mauro Age: 73 Gender: M : 1950 Exam Date: 12/15/2023 10:56 Ordering Phys: Capo Rocha MD Technologist: Yonathan Salazar Exam Location: [facility] [place] Indication: CAD BP: 117 / 60 HR: 66 Rhythm: Sinus Technical Quality: Adequate MEASUREMENTS (Male / Female) Normal Values 2D ECHO LV Diastolic Diameter PLAX 6.3 cm 4.2 - 5.9 / 3.9 - 5.3 cm IVS Diastolic Thickness 0.9 cm 0.6 - 1.0 / 0.6 - 0.9 cm IVS Systolic Thickness 1.8 cm LVPW Diastolic Thickness 1.1 cm 0.6 - 1.0 / 0.6 - 0.9 cm LVPW Systolic Thickness 1.7 cm LVOT Diameter 2.6 cm LV Ejection Fraction 2D Teich 72.9 % LV Ejection Fraction MOD 2C 57.7 % LV Ejection Fraction 2C AL 59.0 % LA Diameter 5.0 cm RA Systolic Volume 4C AL 53.8 ml RA Systolic Volume 4C MOD 53.6 ml LA Sys Volume AL 64.4 cm cubed LA Sys Volume Index AL 30.9 cm cubed/m squared Aorta at Sinotubular Diameter 2.5 cm IVC Diameter 1.7 cm M-MODE LA Ao Ratio MM 1.3 AV Cusp Separation MM 1.8 cm DOPPLER AV Peak Velocity 123.0 cm/s LVOT Peak Velocity 65.0 cm/s AV Area Cont Eq vti 3.7 cm squared AV Area Cont Eq pk 2.9 cm squared MV Peak Velocity 95.0 cm/s MV Area PHT 2.3 cm squared Mitral E to A Ratio 0.6 TR Peak Velocity 271.0 cm/s TR Peak Gradient 29.4 mmHg TR Mean Velocity 184.0 cm/s TR Mean Gradient 16.1 mmHg TR Velocity Time Integral 69.2 cm PV Peak Velocity 69.7 cm/s RV Ejection Time 0.3 s FINDINGS Left Ventricle Left ventricle is dilated. LV systolic function is borderline low with EF of 45-50%. Mild global hypokinesis. Grade 1 diastolic dysfunction. Right Ventricle Mildly hypokinetic Right Atrium Normal in size Left Atrium Dilated Mitral Valve Mitral valve is thickened and calcified. Mild mitral regurgitation. Aortic Valve Aortic valve is thickened. No significant stenosis or regurgitation. Tricuspid Valve Insufficient TR jet to calculate RVSP. Pulmonic Valve Trace pulmonic regurgitation. Pericardium Normal Aorta Normal in size IVC Appears to be normal CONCLUSIONS LV systolic function is borderline low with EF of 45 to 50%. Grade 1 diastolic dysfunction Left atrial dilation Mild mitral regurgitation Trace pulmonic regurgitation Compared to prior echocardiogram from 07/2023, no significant changes are seen. Gopi Shields MD (Electronically Signed) Final Date: 15 December 2023 13:23 S
--- NOTE | 2023-12-15 13:00 | PC.NURSE ---
Pt went into Vtach without loss of consciousness or pulse. Vagal maneuver used and patient returned to . Dr. spivey and gave order for amio gtt with bolus. Taken to pathology lab technician shortly after.
--- NOTE | 2023-12-15 13:15 | ECG_ITS ---
[facility] Test Date: 2023-12-15 Pat Name: Mauro Green Department: Room: 105 Gender: Male Azure Developer: : 1950 Requested By: Capo Rocha Order Number: [id number] Bryanna MD: Gopi Shields M.D. Measurements Intervals [place] Rate: 88 P: 65 MA: 168 QRS: 14 QRSD: 140 T: 60 QT: 380 QTc: 462 Interpretive Statements SINUS RHYTHM WITH FREQUENT VENTRICULAR PREMATURE COMPLEXES INTRAVENTRICULAR CONDUCTION DELAY [130+ ms QRS DURATION] POSSIBLE INFERIOR MYOCARDIAL INFARCTION , PROBABLY OLD [30 ms Q WAVE IN II/aVF] Compared to ECG 12/14/2023 19:27:54 Ventricular premature complex(es) now present Sinus bradycardia no longer present Myocardial infarct finding still present Electronically Signed On 12-15-2023 21:32:55 CDT by Gopi Shields M.D. [id number]
[2023-12-15] MEDS: magnesium sulfate premix 1 GM/100 ML PIGGYBACK IV (13:26)
--- NOTE | 2023-12-15 14:03 | P.CONIM_ITS ---
Providers/Reason For Consult 2 Consulting Physician/Specialty*: Gopi Shields MD/ Cardiology Reason for Consult*: Ventricular tachycardia Requesting Physician: Dr Rocha Attending Physician: Capo Rocha MD Primary Care Provider: Zoë Patterson MD History of Present Illness History of Present Illness Mauro Green is a 73 year old male with past medical history of coronary artery disease s/p CABG in 2016, PCI of proximal left circumflex artery in 2020 presented to hospital with presyncope and fatigue. Also feels shortness of breath. Was found to have bigeminal rhythm occasionally. He also felt jaw pain yesterday radiating to the left arm. His initial troponin was 24 but did not trend up on repeat check. Echo shows LV systolic function is mildly reduced with EF of 45 to 50%. This is unchanged from prior echoes. Today in the hospital he had 2 to 3 minutes of ventricular tachycardia. He had severe dizziness and presyncope again however did not lose consciousness. With vagal maneuver he came out of it. Again had another shorter episode. He has a history of ulcerative proctitis and has occasional blood in the stool. Hgb is stable. He is on Plavix at home. He had a bowel movement this morning with blood noted in it as well. Review of Systems 2 Narrative: CONSTITUTIONAL: No fever chills weight loss or gain or night sweats. [] HEENT: Normocephalic, atraumatic.[] RESPIRATORY: Shortness of breath CARDIOVASCULAR: Pre-syncope, jaw pain GI: no nausea vomiting diarrhea. 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 [] MUSCULOSKELETAL: No knee or joint pain or rashes. [] Medications/Allergies Home Medications Medication Instructions Recorded Confirmed Last Taken Type celecoxib 200 mg capsule 200 mg PO BID 12/12/21 12/14/23 12/14/23 History sacubitril 97 mg-valsartan 103 mg 1 tab PO BID #180 tabs 02/28/23 12/14/23 12/14/23 Rx tablet (Entresto) spironolactone 25 mg tablet 25 mg PO DAILY #30 tabs 10/29/23 12/14/23 12/14/23 Rx amlodipine 5 mg tablet 5 mg PO DAILY 12/14/23 12/14/23 12/14/23 History clopidogrel 75 mg tablet 75 mg PO DAILY 12/14/23 12/14/23 12/14/23 History ezetimibe 10 mg tablet 10 mg PO DAILY 12/14/23 12/14/23 12/14/23 History furosemide 20 mg tablet (Lasix) 20 mg PO DAILY PRN Edema 12/14/23 12/14/23 Unknown History levothyroxine 100 mcg tablet 100 mcg PO DAILY 12/14/23 12/14/23 12/14/23 History metoprolol tartrate 25 mg tablet 25 mg PO BID 12/14/23 12/14/23 12/14/23 History omeprazole 20 mg capsule,delayed 20 mg PO DAILY 12/14/23 12/14/23 12/14/23 History release potassium chloride 8 mEq 8 meq PO DAILY PRN Edema 12/14/23 12/14/23 Unknown History capsule,extended release Allergies Allergy/AdvReac Type Severity Reaction Status Date / Time hydrocodone Allergy Unknown Unknown Verified 07/08/23 06:36 oxycodone Allergy Unknown Unknown Verified 07/08/23 06:36 furosemide AdvReac Intermediate ADR/ALGY-Hy Verified 08/31/23 14:59 potension carvedilol AdvReac erectile Verified 07/08/23 06:36 dysfunction simvastatin AdvReac muscle pain Verified 07/08/23 06:36 Current Medications Generic Name Dose Route Start Last Admin Trade Name Freq PRN Reason Stop Dose Admin Amlodipine Besylate 5 mg 12/15/23 09:00 12/15/23 08:16 Amlodipine 5 Mg Tablet PO 5 mg DAILY GISELE Administration Bisacodyl 10 mg 12/14/23 15:28 12/15/23 08:16 Bisacodyl 5 Mg Tablet PO 10 mg DAILY PRN Administration Constipation (see protocol) Protocol Clopidogrel Bisulfate 75 mg 12/15/23 09:00 12/15/23 08:15 Clopidogrel 75 Mg Tablet PO 75 mg DAILY GISELE Administration Ezetimibe 10 mg 12/15/23 09:00 12/15/23 08:16 Ezetimibe 10 Mg Tablet PO 10 mg DAILY GISELE Administration Heparin Sodium (Porcine) 5,000 unit 12/14/23 15:28 12/15/23 03:42 Heparin 5,000 Unit/Ml Inj 1 Ml SUBCUT 5,000 unit Q12H GISELE Administration Amiodarone HCl/Dextrose 360 mg in 200 mls @ 0 mls/hr 12/15/23 13:12 12/15/23 13:19 Nexterone IV 1 mg/min .Q0M GISELE 33.33 mls/hr Administration Protocol Per Protocol Levothyroxine Sodium 88 mcg 12/15/23 09:00 12/15/23 08:15 Levothyroxine 88 Mcg Tablet PO 88 mcg DAILY GISELE Administration Pantoprazole Sodium 40 mg 12/14/23 15:28 12/14/23 16:01 Pantoprazole 40 Mg Sdv IVP 40 mg Q24H GISELE Administration PFSH Acute 2 PFSH: Medical History Vitamin D deficiency Hypothyroidism Intermittent claudication Osteoarthritis Cardiac LV ejection fraction 21-30% Hyperlipidemia Atherosclerotic heart disease Afib Cardiomyopathy Hypertension Surgical History History of PTCA History of partial thyroidectomy History of total knee arthroplasty History of open reduction and internal fixation (ORIF) procedure Hx of repair of rotator cuff Hx of foot surgery Hx of cataract extraction Hx of CABG History of endarterectomy Family History Family/Other Cancer Hypertension Diabetes Grandmother CAD (coronary artery disease) Brother CAD (coronary artery disease) Chronic kidney disease (CKD) Father CAD (coronary artery disease) Hypertension Mother Hypertension Sister Cancer Denies family history of Clotting disorder Dementia Suicide Anesthesia complication Bleeding disorder Lung disease Stroke Social History Smoking and tobacco/nicotine status: never used tobacco/nicotine Alcohol intake: never Substance/Drug Use: never Vitals/I&O/Wt Last Vital Signs Temp 98.0 F 12/15/23 11:59 Pulse 83 12/15/23 11:59 Resp 19 H 12/15/23 11:59 BP 157/92 12/15/23 11:59 Pulse Ox 93 12/15/23 07:54 O2 Del Method Room Air 12/15/23 07:54 12/14/23 12/15/23 12/15/23 22:59 06:59 14:59 Intake Total 840 / 840 360 / 360 Output Total 350 / 350 200 / 550 Balance 490 / 490 -200 / 290 360 / 360 Weight last 48 hrs Weight 197 lb 9.6 oz Weight 198 lb Weight 190 lb Data 12/15/23 02:38 12/15/23 02:38 Micro: Microbiology 12/14/23 12:43 Bacterial Antigens - Final Urine Kidney 12/14/23 14:26 Blood Culture - Preliminary Blood SPECIMEN COLLECTED 12/14/23 14:26 Blood Culture - Preliminary Blood SPECIMEN COLLECTED A&P Assessment and plan (1) Ventricular tachycardia: (2) Near syncope: (3) Bradycardia: (4) Bigeminy: (5) Frequent PVCs: (6) Ischemic cardiomyopathy: (7) Hx of CABG: Plan Patient has been having frequent PVCs and is now having ventricular tachycardia episodes. One episode was over 2-minute duration. He did not lose consciousness. Last night he was having jaw pain radiating to the left arm. We will proceed with coronary angiogram with possible PCI. He has been started on amiodarone drip. We will bolus him as well. If no new coronary stenosis and VT is confirmed to be scar based, will likely need ICD placement. Will transfer him to ICU after the procedure Has on and off blood in stools. Hemoglobin is stable. He is vitally stable. Has known history of ulcerative proctitis and is chronically on Plavix with no change is hemoglobin. Thank you for involving us with care of this patient. We will continue to follow. Please call with questions. Consult Attestations 2 Medical Necessity Statement: Care expected to cross 2 midnights. Coding Level of Care Code Acute Code for [facility] Fwd Diagnoses Ventricular tachycardia I47.20 Near syncope R55 Bradycardia R00.1 Bigeminy I49.8 Frequent PVCs I49.3 Ischemic cardiomyopathy I25.5 Hx of CABG Z95.1
[2023-12-15] MEDS: amiodarone 150 MG/100 ML PREMIX 400 MG IV (14:06)
--- NOTE | 2023-12-15 14:15 | XACV_ITS ---
Exam Room: 2 Ht: 170 cm Wt: 90 kg BSA: 2.09 m2 Gender: Male : 1950 Any Known Allergies: Other Exam Priority: Routine Procedure(s): Procedure Description: Diagnostic procedure Procedure Description: Venous Graft Catheterization Procedure Description: STRONG Graft Catheterization Procedure Description: Coronary Angiography Diagnostic Cath Status: Urgent Diagnostic Findings * INDICATION: Ventricular tachycardia. * Left Main has mild 30-40% disease in distal vessel. * Circumflex has patent prior stent in proximal segment. * Proximal Right Coronary Artery: subtotal occlusion, ELTON: 2flow. * Mid Right Coronary Artery:chronic total occlusion, ELTON: 0 flow. * Ascending Aorta to Distal Right Coronary Artery graft: known occluded. Not engaged. * Ascending Aorta to OM 1 SVG graft is patent. * Mid Left Anterior Descending: chronic total occlusion, ELTON: 0 flow. * Left Internal Mammary Artery to Distal Left Anterior Descending graft: patent. * First Obtuse Marginal Branch Segment: severe 90% stenosis, ELTON: 3 flow. * Coronary angiography shows right dominance. Conclusions 1. Severe multivessel [place] coronary artery disease. Patent STRONG to LAD and patent SVG to OM. 2. SVG to RCA is known occluded. 3. 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 4. Ventricular tachycardia likely scar based 5. . 6. . Recommendations * Continue amiodarone gtt. If has further ventricular tachycardia episodes can consider lidocaine drip. Coronary anatomy is the same as on coronary angiogram a few years ago. Ventricular tachycardia likely scar based. Recommend secondary prevention of sudden cardiac with ICD placement. . * Transfer to ICU. Interventional RX Recommendation: other cardiac therapy w/o CABG/PCI Diagnostic RX Recommendation: medical therapy and/or counseling Pressures Phase:Rest AO : / ( 0 ) @ 3:46:00 PM 96 / 75 ( 86 ) @ 3:55:00 PM Clinical Evaluation EBL: 5mL-10mL Procedural Details Pre-Procedure Time Out. Identified patient by full name and date of as verbalized by the patient/guarantor. Does the consent match the physician's order: Yes. Accurate & Complete Informed Consent: Yes. Inpatient/Outpatient History & Physical on Chart: Yes. If H&P is completed, is and addenduem needed: No; If yes, is the addendum complete: N/A. Visualize and Verify Site with Patient/Guarantor: N/A. Relevant Radiology Images available: Yes. Pre-op teaching completed and patient verbalized understanding. The risks, benefits, and alternatives of sedation and/or procedure were discussed by physician. The patient agrees to continue. Procedure started. [facility] Clinical Fraility Score: 5: Mildly Frail. 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 Cardiovascular Instability: Yes, if yes, Ventricular Arrhythmias. Correct patient, site and procedure confirmed by cath team. Current diagnosis: Chest Pain. PERRLA. Strong, equal hand account underwriter bilaterally. Lungs clear x 5 lobes. IV Site on Arrival: 18 gauge in the left anticubital. IV Fluids: 0.9% NaCl at KVO. 0 mL infused prior to lab asst. Oxygen started at 2liters/min via nasal canula. bilateral groins was prepped with chloroprep then draped in the usual sterile fashion. Baseline sample Acquired. HR: 88 BPM. Physician arrived. Physician scrubbed in. Immediate Pre-Procedure Time Out. Correct Patient: Yes; Correct Procedure: Yes; Correct Site: Yes; Correct Patient Position: Yes; Correct Supplies: Yes; Dried Flammable Prep: Yes; Blood Products Available: N/A;. Lidocaine 1% infiltrated to the right groin. Arterial access obtained with micropuncture set. Wire unable to advance. Wire and needle out. Manual pressure held on access site. AP Pads placed on the patient. The patient arrived to the lab asst with Amiodarone running at 1mg/min. Arterial access obtained with micropuncture set. A 5 lao JL4 catheter in over the glidewire. Multiple views taken of left coronary artery. Catheter removed over the exchange wire. A 5 lao JR4 catheter in over wire. Multiple views taken of right coronary artery. SVG's to OM visualized and patent. SVG to RCA occluded. STRONG to LAD visualized. Catheter removed over the exchange wire. A Right femoral angiogram was performed to determine safe placement of closure device. A Mynx was successful obtaining hemostatsis at the Right Femoral artery insertion site. Post Procedure: Pulses reassessed and unchanged. PERRLA. Strong, equal hand account underwriter bilaterally. No VTE prophylaxis required. Medication's Wasted: Heparin = 1000 units. Total IV fluids: 30 mL. Complications: None. Estimated blood loss: 5mL-10mL. Responsiveness - Normal response to verbal stimuli; alert and oriented, PERRLA. Airway - Unaffected, no intervention required; spontaneous ventilation. Circulation: W/N/L, pulses unchanged. Nausea/Vomiting: No. Procedure completed. Patient transferred by bed to ICU. Vital chart was stopped. Access Site Site: Right Femoral artery Sheath Size: 6 Fr Hemostasis Method: Mynx Hemostasis Success: Successful Procedure Medications Start: 2:38 PM Stop: 2:38 PM Medication: Versed Amount: 1 mg Route: I.V. Start: 2:38 PM Stop: 2:38 PM Medication: Fentanyl Amount: 50 mcg Route: I.V. Start: 2:58 PM Stop: 2:58 PM Medication: Versed Amount: 1 mg Route: I.V. Start: 2:58 PM Stop: 2:58 PM Medication: Fentanyl Amount: 50 mcg Route: I.V. I, the attending physician, have reviewed and verified all procedure medications. Yes, all medications given per verbal order History/Risk Factors Hypertension: No Dyslipidemia: No Peripheral Arterial Disease (PAD): No Myocardial Infarction (VA): No Obesity: No Renal Disease: No Prior Interventions PCI: No CABG: No Valve Surgery: No Report Signatures Finalized by Gopi Shields MD on 12/16/2023 04:07 PM
--- NOTE | 2023-12-15 14:33 | P.HPUD_ITS ---
Surgery/Procedure H&P Update DATE OF PROCEDURE: December 15, 2023 DATE H&P PERFORMED: 12/15/23 H&P UPDATE INFORMATION: I have reviewed H&P completed within last 30 days, I have examined patient prior to procedure and No changes to prior documentation CHANGES TO PREVIOUS DOCUMENTATION: Patient's chart has limited resuscitation order but he agreed to switch to full code for the procedure. After the procedure, primary team will readdress the c ode status. PREOP DIAGNOSIS: Ventricular tachycardia PRIMARY INDICATION FOR PROCEDURE: Ventricular tachycardia PLANNED PROCEDURE: Left heart cath with possible percutaneous coronary artery intervention PATIENT REASSESSED PRIOR TO SEDATION, WITH NO CHANGE NOTED: Yes PHYSICAL EXAM: alert, oriented x 3, clear to auscultation bilaterally and regular rate & rhythm AIRWAY EVAL/ANESTHESIA PLAN: normal airway, ASA III, Local Anesthesia, Risks, benefits & alternatives of sedation and/or procedure discussed and Patient agrees to continue as planned ADDITIONAL INFORMATION: Moderate sedation
--- NOTE | 2023-12-15 15:42 | P.PN_ITS ---
Subjective 2 Subjective: No acute events overnight. Today morning patient was doing well but started having recurrent episodes of ventricular arrhythmias with bile and trigeminy. Also had few episodes of nonsustained V. tach and 1 episode of 3 minutes of V. tach. Patient remained hemodynamically stable. Had episodes of dizziness during episodes. Denied having any nausea. Also had 2 episodes of bloody bowel movements. Denies any abdominal pain or nausea. Denies any chest pain. Denies any difficulty in breathing. Vitals/I&O/Wt Last Vital Signs Temp 98.0 F 12/15/23 11:59 Pulse 90 12/15/23 14:00 Resp 19 H 12/15/23 11:59 BP 157/92 12/15/23 11:59 Pulse Ox 93 12/15/23 07:54 O2 Del Method Room Air 12/15/23 07:54 12/15/23 12/15/23 12/15/23 06:59 14:59 22:59 Intake Total 360 / 360 Output Total 200 / 550 Balance -200 / 290 360 / 360 Weight last 48 hrs Weight 89.63 kg Weight 89.811 kg Weight 86.183 kg Physical Exam 2 Narrative: General: No acute distress, AO x3, anxious HEENT: PERRLA, pupils bilaterally equal and reactive Chest: Normal vesicular breath sounds, no added sounds, equal good air entry bilaterally CVS: S1-S2 regular, no murmurs, bradycardia , no gallops, no rubs Abdomen: Soft, nontender, no organomegaly, bowel sounds present Neuro: No focal deficits, no facial deformity, AO x3, power 5/5 in all limbs Data 12/15/23 02:38 12/15/23 02:38 Micro: Microbiology 12/14/23 14:26 Blood Culture - Preliminary Blood NEGATIVE TO DATE 12/14/23 14:26 Blood Culture - Preliminary Blood NEGATIVE TO DATE 12/14/23 12:43 Bacterial Antigens - Final Urine Kidney A&P Assessment and plan (1) Near syncope: Presyncope episode along with weakness and fatigue ongoing for last few weeks worsened today. Found to have bradycardia with bigeminy and frequent VPCs in the ER. Patient having episodes of nonsustained V. tach. High likelihood of presyncope secondary to nonsustained V. tach versus bradycardia. Telemetry. Troponin cycled negative. Hold off on diuretics. Monitor electrolytes with potassium target around 4, magnesium around 2. Appreciate cardiology recommendations. Fall precautions, aspiration precaution. (2) Ventricular tachycardia: Ischemic VT versus scar VT. Monomorphic. Troponin cycled negative. Keep magnesium around 2, potassium around 4. IV magnesium 1 g. Amiodarone IV 150 mg followed by infusion. If continues to have recurrent episodes of atrial tachycardia will have to transition over to lidocaine and possible transfer for EP study. Start on low-dose beta-florence while monitor for bradycardia. Start on 12.5 mg twice daily. Appreciate cardiology recommendations. Plan for cardiac angiogram to rule out ischemic VT. (3) Bradycardia: Continue to monitor. Heart rate improved to 90s. Start on low-dose beta- florence as because of episode of ventricular tachycardia. (4) Bloody stools: Gets chronic history. Follows up with a physician at [place]. Concerns for ulcerative proctitis. Hemoglobin has remained stable. Protonix 40 mg IV twice daily. CT abdomen pelvis with contrast in next 24 hours as patient is getting cardiac angiogram today. If patient continues to have multiple episodes will most likely have to do CT abdomen pelvis stat. Continue to monitor. (5) Bigeminy: (6) Ischemic cardiomyopathy: Repeat echocardiogram done today shows an EF of 45 to 50% with mild global LV hypokinesia, grade 1 diastolic dysfunction, mild MR. Hold off on diuretics. Normal saline 50 cc/h for gentle hydration for 1 bag. (7) Hx of CABG: No regional wall motion normality on echocardiogram. Echocardiogram as above. Continue with home dose of Plavix, ezetimibe. Appreciate A1c, lipid panel. Cycle troponins. Plan Acute kidney injury: Baseline creatinine around 1.1. Resolved. Gentle hydration as above. Hypertension: Goal blood pressure less than 140/90 mmHg. Hold off on home dose of Entresto. Continue with home dose of amlodipine. Uptitrate for goal blood pressure. Will restart Entresto are improving. CODE STATUS: Discussed in detail with the patient. He is okay with ICU admission, pacemaker implantation but not okay with chest compressions or resuscitation. Limited resuscitation CODE STATUS Cardiac diet Protonix OPD prophylaxis Heparin 5000 every 12 hourly for DVT prophylaxis Transfer to ICU. Attestations 2 Medical Necessity Statement*: Requires further hospitalization for management of nonsustained V. tach while ischemic etiology is ruled out, bradycardia leading to presyncope in a patient with history of CABG Critical Care Time: The high probability of a clinically significant, sudden or life threatening deterioration of the patient's cardiac system(s) required my full and direct attention, intervention and personal management. The critical care time is as shown. This time is in addition to time spent performing any reported procedures but includes the following: [x] Data and vital sign review and interpretation [x] Patient assessment, examination and intervention [x] Documentation [x] Medication orders and management Critical Care Time (min): 60 Coding Level of Care Code Critical Care >/= 30 minutes Critical care time (in minutes): 60 The high probability of a clinically significant, sudden or life threatening deterioration, as referenced in this documentation, required my full and direct attention, intervention and personal management. The critical care time shown is in addition to time spent performing any reported separately billable procedures and includes the following: [x] Data and vital sign review and interpretation [x ] Patient assessment, examination and intervention [x] Medication orders and management [x] Patient/Family updates as able [x] Care Coordination and Documentation. Diagnoses Near syncope R55 Ventricular tachycardia I47.20 Bradycardia R00.1 Bloody stools K92.1 Bigeminy I49.8 Ischemic cardiomyopathy I25.5 Hx of CABG Z95.1
--- NOTE | 2023-12-15 16:33 | ECG_ITS ---
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 Measurements Intervals [place] Rate: 62 P: 44 [place]: 169 QRS: 6 QRSD: 146 T: -7 QT: 432 QTc: 439 Interpretive Statements SINUS RHYTHM WITH OCCASIONAL VENTRICULAR PREMATURE COMPLEXES INTRAVENTRICULAR CONDUCTION DELAY [130+ ms QRS DURATION] INFERIOR MYOCARDIAL INFARCTION , PROBABLY OLD [40+ ms Q WAVE AND/OR ST/T ABNORMALITY IN II/aVF] INTERPRETATION BASED ON A DEFAULT AGE OF 40 YEARS Compared to ECG 12/15/2023 13:46:30 No significant changes Electronically Signed On 12-15-2023 21:32:24 CDT by Gopi Shields M.D. [email or web address]
[2023-12-15] MEDS: pantoprazole 40 mg SDV IVP (17:25)
[2023-12-15] MEDS: metoprolol tartrate 25 mg Tablet 12.5 MG PO ×2 (17:26→20:08)
[2023-12-16] VITALS (22 sets, daily range): BP systolic 91–143; BP diastolic 44–77; PULSE 54–68; RESP 14–32; TEMP 36.8–37.7; O2SAT 90–97; BMI 31.0
--- NOTE | 2023-12-16 03:45 | PC.NURSE ---
Had small bright red blood bowel movement. Patient reports that this has been going on for 1.5 years and has an appointment in [place] in 3 weeks for it. MD aware of bloody bowel movements, heparin on hold at present time.
[2023-12-16 04:46] LABS: Basophils % 0.6 %; Eosinophils # 0.1 10^3/uL (0.0-0.8); Eosinophils % 1.8 %; Hematocrit 46.1 % (37-53); Lymphocytes # 1.1 10^3/uL (0.8-4.8); Lymphocytes % 16.9 %; Mean Corpuscular HGB Conc 33.2 g/dL (30-55); Mean Corpuscular Hemoglobin 28.5 pg (27-33); Mean Corpuscular Volume 85.8 fl (82-101); Mean Platelet Volume 10.2 fL (7.4-10.4); Monocytes # 0.5 10^3/uL (0.2-0.9); Neutrophils # 4.94 10^3/uL (1.8-7.7); Neutrophils % 73.4 %; Nucleated Red Blood Cells % 0 %; Platelet Count 169 10^3/cmm (157-399); Red Blood Count 5.37 10^6/uL (3.85-5.65); Red Cell Distribution Width 14.3 % (12.1-15.1); White Blood Count 6.73 10^3/uL (3.29-11.43)
[2023-12-16 05:07] LABS: Magnesium 1.7 mg/dL (1.7-2.3)
[2023-12-16 05:09] LABS: Alanine Aminotransferase 11 U/L (0-41); Albumin Level 3.3 g/dL (3.5-5.2); Alkaline Phosphatase 48 U/L (40-130); Anion Gap 14.1 (5-19); Aspartate Amino Transferase 9 U/L (0-40); Blood Urea Nitrogen 17 mg/dL (8-23); Calcium 8.1 mg/dL (8.5-10.5); Carbon Dioxide 21 mmol/L (22-29); Chloride 108 mmol/L (98-107); Globulin 2.1 g/dL (1.3-4.6); Glucose 97 mg/dL (65-115); Osmolality Calculated 289 mOsm/kg (285-295); Potassium 4.1 mmol/L (3.5-5.1); Sodium 139 mmol/L (136-145); Total Bilirubin 0.3 mg/dL (0.15-1.2); Total Protein 5.4 g/dL (6.6-8.7)
--- NOTE | 2023-12-16 08:30 | P.PN_ITS ---
Subjective 2 Subjective: Patient had coronary angiogram yesterday that showed unchanged coronary anatomy compared to before. Had patent STRONG to LAD and SVG to OM. Prior proximal left circumflex artery stent was patent as well. He is doing much better today. PVC burden has improved. No more ventricular tachycardia episodes. Vitals/I&O/Wt Last Vital Signs Temp 98.2 F 12/16/23 04:00 Pulse 64 12/16/23 06:00 Resp 22 H 12/16/23 06:00 BP 129/73 12/16/23 06:00 Pulse Ox 97 12/16/23 06:00 O2 Del Method Room Air 12/16/23 06:00 12/15/23 12/16/23 12/16/23 22:59 06:59 14:59 Intake Total 343.314 / 1903.314 200 / 200 Output Total 1200 / 1200 200 / 1400 Balance -856.686 / 703.314 -200 / 503.314 200 / 200 Weight last 48 hrs Weight 198 lb 1.6 oz Weight 196 lb 3 oz Weight 197 lb 9.6 oz Weight 198 lb Weight 190 lb Physical Exam 2 Narrative: GENERAL: Patient is alert, awake and oriented x3. [] NECK: No jugular vein distension. [] HEENT: No cyanosis. No icterus. No pallor. [] HEART: Regular S1 and S2. No murmur, rub or gallop. [] LUNGS: Clear to auscultate bilaterally. [] CENTRAL NERVOUS SYSTEM: Grossly nonfocal. [] EXTREMITIES: Lower extremities with 1+ edema bilaterally. Data 12/16/23 04:26 12/16/23 04:26 Micro: Microbiology 12/14/23 14:26 Blood Culture - Preliminary Blood NEGATIVE TO DATE 12/14/23 14:26 Blood Culture - Preliminary Blood NEGATIVE TO DATE A&P Assessment and plan (1) Ventricular tachycardia: (2) Near syncope: (3) Bradycardia: (4) Bigeminy: (5) Frequent PVCs: (6) Ischemic cardiomyopathy: (7) Hx of CABG: Plan Coronary angiogram did not reveal change in coronary anatomy since 2020. Given sustained ventricular tachycardia episode in the hospital, will recommend ICD placement as secondary prevention. Continue amiodarone gtt. Can switch to 400 mg twice daily later today. Continue beta-florence. Thank you for involving us with care of this patient. We will continue to follow. Please call with questions. Attestations 2 Medical Necessity Statement*: Care expected to cross 2 midnights. Coding Level of Care Code Acute Code for [facility] Fwd Diagnoses Ventricular tachycardia I47.20 Near syncope R55 Bradycardia R00.1 Bigeminy I49.8 Frequent PVCs I49.3 Ischemic cardiomyopathy I25.5 Hx of CABG Z95.1
[2023-12-16] MEDS: ezetimibe 10 mg Tablet PO (09:37)
[2023-12-16] MEDS: amlodipine 5 mg Tablet PO (09:37)
[2023-12-16] MEDS: clopidogrel 75 mg Tablet PO (09:37)
[2023-12-16] MEDS: metoprolol tartrate 25 mg Tablet 12.5 MG PO ×2 (09:37→20:36)
[2023-12-16] MEDS: levothyroxine 88 mcg Tablet PO (09:37)
[2023-12-16] MEDS: magnesium sulfate premix 1 GM/100 ML PIGGYBACK IV (11:27)
--- NOTE | 2023-12-16 11:51 | ECG_ITS ---
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 Measurements Intervals Exchange Rate: 62 P: 28 AK: 195 QRS: -5 QRSD: 150 T: 37 QT: 451 QTc: 459 Interpretive Statements SINUS RHYTHM INTRAVENTRICULAR CONDUCTION DELAY [130+ ms QRS DURATION] Compared to ECG 12/15/2023 16:35:59 Ventricular premature complex(es) no longer present Myocardial infarct finding no longer present Electronically Signed On 12-16-2023 15:24:39 CDT by Gopi Shields M.D. [id number]
[2023-12-16] MEDS: amiodarone 200 mg Tablet 400 MG PO ×2 (12:28→18:15)
--- NOTE | 2023-12-16 15:38 | P.PN_ITS ---
Subjective 2 Subjective: No acute vents overnight. Overnight has remained on amiodarone drip. Ventricular ectopy burden has decreased. Patient states he is feeling better. Denies any nausea vomiting, headache, dizziness, chest pain or difficulty in breathing. Hemodynamically stable. Vitals/I&O/Wt Last Vital Signs Temp 98.5 F 12/16/23 09:00 Pulse 64 12/16/23 12:00 Resp 27 H 12/16/23 12:00 BP 98/77 12/16/23 12:00 Pulse Ox 92 12/16/23 12:00 O2 Del Method Room Air 12/16/23 06:00 12/16/23 12/16/23 12/16/23 06:59 14:59 22:59 Intake Total 772.8 / 772.8 Output Total 200 / 1400 Balance -200 / 503.314 772.8 / 772.8 Weight last 48 hrs Weight 89.953 kg Weight 89.857 kg Weight 88.989 kg Weight 89.63 kg Physical Exam 2 Narrative: General: No acute distress, AO x3, anxious HEENT: PERRLA, pupils bilaterally equal and reactive Chest: Normal vesicular breath sounds, no added sounds, equal good air entry bilaterally CVS: S1-S2 regular, no murmurs, bradycardia , no gallops, no rubs Abdomen: Soft, nontender, no organomegaly, bowel sounds present Neuro: No focal deficits, no facial deformity, AO x3, power 5/5 in all limbs Data 12/16/23 04:26 12/16/23 04:26 Micro: Microbiology 12/14/23 14:26 Blood Culture - Preliminary Blood NEGATIVE TO DATE 12/14/23 14:26 Blood Culture - Preliminary Blood NEGATIVE TO DATE A&P Assessment and plan (1) Near syncope: Presyncope episode along with weakness and fatigue ongoing for last few weeks worsened today. Found to have bradycardia with bigeminy and frequent VPCs in the ER. Patient having episodes of nonsustained V. tach. High likelihood of presyncope secondary to nonsustained V. tach versus bradycardia. Telemetry. Troponin cycled negative. Blood pressures have been soft while home dose of Entresto has been withheld. Could be in setting of soft blood pressures even at home. Patient has remained euvolemic. Hold off on diuretics. Monitor electrolytes with potassium target around 4, magnesium around 2. Appreciate cardiology recommendations. Fall precautions, aspiration precaution. (2) Ventricular tachycardia: Monomorphic. Underwent cardiac angiogram on 12/14 which ruled out ischemic nature. Angiogram showed unchanged coronary anatomy. He had patent STRONG to LAD and SVG to OM with prior proximal LCx stent patent. For scar VT. Ventricular ectopy has decreased. Amiodarone 40 mg oral twice daily. Stop amiodarone drip as per protocol. Patient will need ICD for secondary prevention. Will consult Dr. Osborn in AM. Keep magnesium around 2, potassium around 4. Monitor QTc. Continue with metoprolol 12.5 mg twice daily. (3) Bradycardia: Continue to monitor. Heart rate improved to 90s. Start on low-dose beta- florence as because of episode of ventricular tachycardia as above. (4) Bloody stools: Gets chronic history. Follows up with a physician at [place]. Concerns for ulcerative proctitis. Hemoglobin has remained stable. Protonix 40 mg IV twice daily. CT abdomen pelvis with contrast today as patient's creatinine has remained stable and has been 24 hours post cardiac angiogram. Continue to monitor. (5) Bigeminy: (6) Ischemic cardiomyopathy: Repeat echocardiogram done today shows an EF of 45 to 50% with mild global LV hypokinesia, grade 1 diastolic dysfunction, mild MR. Hold off on diuretics. Normal saline 50 cc/h for gentle hydration for 1 bag. (7) Hx of CABG: No regional wall motion normality on echocardiogram. Echocardiogram as above. Continue with home dose of Plavix, ezetimibe. Appreciate A1c, lipid panel. Cycle troponins. Plan Acute kidney injury: Baseline creatinine around 1.1. Resolved. Gentle hydration as above. Hypertension: Goal blood pressure less than 140/90 mmHg. Blood pressures have been soft. Continue to hold off on home dose of amlodipine and Entresto. CODE STATUS: Discussed in detail with the patient. He is okay with ICU admission, pacemaker implantation but not okay with chest compressions or resuscitation. Limited resuscitation CODE STATUS Cardiac diet Protonix OPD prophylaxis Heparin 5000 every 12 hourly for DVT prophylaxis Transfer to [facility]. Attestations 2 Medical Necessity Statement*: Requires further hospitalization for management of ventricular tachycardia as patient requires ICD for secondary prevention, bloody bowel movement with possible past history of ulcerative colitis in a patient with history of CABG Diagnoses Near syncope R55 Ventricular tachycardia I47.20 Bradycardia R00.1 Bloody stools K92.1 Bigeminy I49.8 Ischemic cardiomyopathy I25.5 Hx of CABG Z95.1
--- NOTE | 2023-12-16 15:38 | CTR_ITS ---
PROCEDURE INFORMATION: Exam: CT Abdomen And Pelvis With Contrast Exam date and time: 12/16/2023 6:41 PM Age: 73 years old Clinical indication: Prior surgery; Surgery date: 6+ months; Surgery type: Cabg; Patient HX: Hematic bm. History of ulcerative colitis. ; Additional info: Bloody bm, possible h/o uc TECHNIQUE: Imaging protocol: Computed tomography of the abdomen and pelvis with contrast. Radiation optimization: All CT scans at this facility use at least one of these dose optimization techniques: automated exposure control; mA and/or kV adjustment per patient size (includes targeted exams where dose is matched to clinical indication); or iterative reconstruction. Contrast material: OMNI 350; Contrast volume: 100 ml; Contrast route: INTRAVENOUS (IV); COMPARISON: CR XR chest 1V portable [id number] 12/14/2023 12:45 PM RADIATION DOSE METRICS: Total DLP (mGy-cm): 858.92 FINDINGS: Liver: Normal. No mass. Gallbladder and bile ducts: Normal. No calcified stones. No ductal dilation. Pancreas: Normal. No ductal dilation. Spleen: Normal. No splenomegaly. Adrenal glands: Normal. No mass. Kidneys and ureters: There is a 6.2 cm cyst in the inferior right kidney. No renal calcification or hydronephrosis. Stomach and bowel: There is wall thickening of the rectosigmoid colon with associated inflammation. No bowel obstruction. Appendix: The appendix is visualized and appears normal. Intraperitoneal space: Unremarkable. No free air. No significant fluid collection. Vasculature: Unremarkable. No abdominal aortic aneurysm. Lymph nodes: Unremarkable. No enlarged lymph nodes. Urinary bladder: Unremarkable as visualized. Reproductive: Unremarkable as visualized. Bones/joints: There is bilateral spondylolysis at L5/S1. Degenerative change is identified in the spine. Soft tissues: Unremarkable. CT/CT abdomen pelvis w con* [id number] IMPRESSION: There is colitis of the rectosigmoid colon.Clinical correlation is advised. COMMENTS: Consistent with the [employer]'s Incidental Findings Committee white paper (J Am Susana Radiol 2018): Any incidental renal lesion less than 1 cm or classified as too small to characterize, or any incidental cystic renal lesion characterized as simple-appearing, is likely benign. No follow-up imaging is recommended for these lesions per consensus recommendations based on imaging criteria.
[2023-12-16] MEDS: pantoprazole 40 mg SDV IVP (18:16)
[2023-12-16] MEDS: sodium chloride 0.9% 1,000 ML 50 ML IV (18:16)
[2023-12-16] MEDS: iohexol 350 mg/mL 500 mL Btl (per mL) IV (18:55)
--- NOTE | 2023-12-16 19:38 | PC.NURSE ---
Right upper AC space red, warm, and swollen from old IV site. Cool compress applied.
[2023-12-16] MEDS: piperacillin-tazobactam 3.375 GM in sodium chloride 0.9% (plus) 50 ML IV (21:58)
[2023-12-16 23:53] LABS: Adenovirus Not Detected (NOT DETECT); Chlamydia Pneumoniae Not Detected (NOT DETECT); Coronavirus 229E,HKU1,NL63,OC4 Not Detected (NOT DETECT); Human Metapneumovirus Not Detected (NOT DETECT); Human Rhinovirus/Enterovirus Not Detected (NOT DETECT); Influenza A Not Detected (NOT DETECT); Influenza A H1 Not Detected (NOT DETECT); Influenza A H1-2009 Not Detected (NOT DETECT); Influenza A H3 Not Detected (NOT DETECT); Influenza B Not Detected (NOT DETECT); Mycoplasma Pneumoniae Not Detected (NOT DETECT); Parainfluenza Virus Type 1 Not Detected (NOT DETECT); Parainfluenza Virus Type 2 Not Detected (NOT DETECT); Parainfluenza Virus Type 3 Not Detected (NOT DETECT); Parainfluenza Virus Type 4 Not Detected (NOT DETECT); Respiratory Syncytial Virus A Not Detected (NOT DETECT); Respiratory Syncytial Virus B Not Detected (NOT DETECT); SARS-COV-2 Not Detected (NOT DETECT)
[2023-12-17] VITALS (24 sets, daily range): BP systolic 96–169; BP diastolic 50–89; PULSE 50–75; RESP 12–30; TEMP 36.4–37.1; O2SAT 90–96
[2023-12-17] MEDS: pantoprazole 40 mg SDV IVP ×2 (03:18→15:58)
[2023-12-17] MEDS: piperacillin-tazobactam 3.375 GM in sodium chloride 0.9% (plus) 50 ML IV ×3 (05:16→21:28)
[2023-12-17 06:12] LABS: Basophils % 0.6 %; Eosinophils # 0.2 10^3/uL (0.0-0.8); Eosinophils % 2.9 %; Lymphocytes # 1.6 10^3/uL (0.8-4.8); Lymphocytes % 24.7 %; Mean Corpuscular Hemoglobin 28.6 pg (27-33); Mean Corpuscular Volume 86.5 fl (82-101); Mean Platelet Volume 10.5 fL (7.4-10.4); Monocytes # 0.7 10^3/uL (0.2-0.9); Neutrophils # 4.02 10^3/uL (1.8-7.7); Neutrophils % 61.5 %; Nucleated Red Blood Cells % 0 %; Platelet Count 176 10^3/cmm (157-399); Red Blood Count 5.32 10^6/uL (3.85-5.65); Red Cell Distribution Width 14.2 % (12.1-15.1); White Blood Count 6.53 10^3/uL (3.29-11.43)
[2023-12-17 06:42] LABS: Alanine Aminotransferase 11 U/L (0-41); Albumin Level 3.3 g/dL (3.5-5.2); Alkaline Phosphatase 49 U/L (40-130); Anion Gap 14.1 (5-19); Aspartate Amino Transferase 9 U/L (0-40); Blood Urea Nitrogen 15 mg/dL (8-23); Calcium 8.4 mg/dL (8.5-10.5); Carbon Dioxide 22 mmol/L (22-29); Chloride 109 mmol/L (98-107); Creatinine Clr Calc Pharmacy 57.7243; Globulin 2.2 g/dL (1.3-4.6); Glucose 95 mg/dL (65-115); Magnesium 1.8 mg/dL (1.7-2.3); Osmolality Calculated 293 mOsm/kg (285-295); Potassium 4.1 mmol/L (3.5-5.1); Sodium 141 mmol/L (136-145); Total Bilirubin 0.4 mg/dL (0.15-1.2); Total Protein 5.5 g/dL (6.6-8.7)
[2023-12-17] MEDS: levothyroxine 88 mcg Tablet PO (08:53)
[2023-12-17] MEDS: ezetimibe 10 mg Tablet PO (08:54)
[2023-12-17] MEDS: amiodarone 200 mg Tablet 400 MG PO ×2 (08:54→17:13)
[2023-12-17] MEDS: clopidogrel 75 mg Tablet PO (08:54)
[2023-12-17] MEDS: metoprolol tartrate 25 mg Tablet 12.5 MG PO (08:55)
--- NOTE | 2023-12-17 12:32 | P.PN_ITS ---
Subjective 2 Subjective: Patient is admitted to hospital with recurrent episodes of near syncope. Found to have episodes of ventricular tachycardia with a heart rate in the 200 range. Currently seems to be remaining stable with no recurrence. Status post cardiac catheterization revealing no revascularizable lesions. Medications: Medication Review Details: Current Medications Acetaminophen (Acetaminophen 325 Mg Tablet) 650 mg PO Q6H PRN PRN Reason: Mild/Mod Pain Or Temp >/= 101 Amiodarone HCl (Amiodarone 200 Mg Tablet) 400 mg PO BID [facility] Last Admin: 12/17/23 08:54 Dose: 400 mg Amlodipine Besylate (Amlodipine 5 Mg Tablet) 5 mg PO DAILY [facility] Last Admin: 12/16/23 09:37 Dose: 5 mg Bisacodyl (Bisacodyl 5 Mg Tablet) 10 mg PO DAILY PRN; Protocol PRN Reason: Constipation (see protocol) Last Admin: 12/15/23 08:16 Dose: 10 mg Clopidogrel Bisulfate (Clopidogrel 75 Mg Tablet) 75 mg PO DAILY [facility] Last Admin: 12/17/23 08:54 Dose: 75 mg Ezetimibe (Ezetimibe 10 Mg Tablet) 10 mg PO DAILY [facility] Last Admin: 12/17/23 08:54 Dose: 10 mg Sodium Chloride (Sodium Chloride 0.9%) 1,000 mls @ 50 mls/hr IV .Q20H [facility] Stop: 12/17/23 12:59 Last Admin: 12/16/23 18:16 Dose: 50 mls/hr Piperacillin Sod/Tazobactam (Sod 3.375 gm/ Sodium Chloride) 50 mls @ 12.5 mls/hr IV Q8H [facility] Last Infusion: 12/17/23 09:18 Dose: Infused Lactulose (Lactulose Oral Liq 20 Gm/30 Ml Udc) 10 gm PO DAILY PRN; Protocol PRN Reason: Constipation (see protocol) Levothyroxine Sodium (Levothyroxine 88 Mcg Tablet) 88 mcg PO DAILY [facility] Last Admin: 12/17/23 08:53 Dose: 88 mcg Magnesium Hydroxide (Magnesium Hydroxide 30 Ml Udc) 30 ml PO DAILY PRN; Protocol PRN Reason: Constipation (see protocol) Metoprolol Tartrate (Metoprolol Tartrate 25 Mg Tablet) 12.5 mg PO BID@0900,2100 [facility] Last Admin: 12/17/23 08:55 Dose: 12.5 mg Morphine Sulfate (Morphine 4 Mg/Ml Sdv 1 Ml) 2 mg IVP Q4H PRN PRN Reason: SEVERE PAIN Ondansetron HCl (Ondansetron 2 Mg/Ml Sdv 2 Ml) 4 mg IVP Q8H PRN PRN Reason: vomiting, or N/V if npo Pantoprazole Sodium (Pantoprazole 40 Mg Sdv) 40 mg IVP Q12H [facility] Last Admin: 12/17/23 03:18 Dose: 40 mg Vitals/I&O/Wt Last Vital Signs Temp 98.0 F 12/17/23 12:19 Pulse 55 L 12/17/23 09:00 Resp 17 12/17/23 09:00 BP 133/69 12/17/23 09:00 Pulse Ox 92 12/17/23 09:00 O2 Del Method Room Air 12/17/23 04:00 12/16/23 12/17/23 12/17/23 22:59 06:59 14:59 Intake Total 400 / 1172.8 50 / 1222.8 764 / 764 Output Total 850 / 850 600 / 1450 Balance -450 / 322.8 -550 / -227.2 764 / 764 Weight last 48 hrs Weight 197 lb 14.4 oz Weight 198 lb 5 oz Weight 198 lb 1.6 oz Physical Exam 2 Narrative: GENERAL: The patient is alert and oriented times three. Not in any acute distress. HEENT: No significant pallor, icterus or lymphadenopathy.Oral cavity: There are no mucous membrane lesions. NECK: Trachea appears to be central. No masses noted. No JVD or thyromegaly appreciated. RESPIRATORY: Chest is symmetrical. No intercostals muscle retraction or any accessory muscle activation. There is no chest wall tenderness. Breath sounds are heard bilaterally. No rales or rhonchi heard. No evidence of any consolidation. BREASTS: Deferred. HEART: The heart sounds are normal. No S3 or S4. Short systolic murmur in the lower sternal border. No diastolic murmurs.. No pericardial rub ABDOMEN: No vessel pulsations or distention. No tenderness. No organomegaly appreciated. Bowel sounds are normally heard. : Deferred. RECTAL: Deferred. LYMPHATIC: No lymphadenopathy noted in the neck. EXTREMITIES: No edema or cyanosis. No clubbing. MUSCULOSKELETAL: No acute joint deformities or swelling SKIN: There are no significant rashes or ecchymosis NEUROPSYCHIATRIC: The patient is alert and oriented x3. Appears to be in a good mood. No tremors or rigidity noted. Data 12/17/23 05:49 12/17/23 05:49 Other Labs: Laboratory Last Values WBC 6.53 10^3/uL (3.29-11.43) 12/17/23 05:49 Corrected WBC Cancelled 12/17/23 03:54 RBC 5.32 10^6/uL (3.85-5.65) 12/17/23 05:49 Hgb 15.20 g/dL (11.27-16.99) 12/17/23 05:49 Hct 46.0 % (37-53) 12/17/23 05:49 MCV 86.5 fl (82-101) 12/17/23 05:49 MCH 28.6 pg (27-33) 12/17/23 05:49 MCHC 33.0 g/dL (30-55) 12/17/23 05:49 RDW 14.2 % (12.1-15.1) 12/17/23 05:49 Plt Count 176 10^3/cmm (157-399) 12/17/23 05:49 MPV 10.5 fL (7.4-10.4) H 12/17/23 05:49 Gran % Cancelled 12/17/23 03:54 Neut % (Auto) 61.5 % 12/17/23 05:49 Lymph % (Auto) 24.7 % 12/17/23 05:49 Graves % (Auto) 10.0 % 12/17/23 05:49 Eos % (Auto) 2.9 % 12/17/23 05:49 Baso % (Auto) 0.6 % 12/17/23 05:49 Neut # (Auto) 4.02 10^3/uL (1.8-7.7) 12/17/23 05:49 Lymph # (Auto) 1.6 10^3/uL (0.8-4.8) 12/17/23 05:49 Graves # (Auto) 0.7 10^3/uL (0.2-0.9) 12/17/23 05:49 Eos # (Auto) 0.2 10^3/uL (0.0-0.8) 12/17/23 05:49 Baso # (Auto) 0.0 10^3/uL (0.0-0.1) 12/17/23 05:49 Absolute Gran (auto) Cancelled 12/17/23 03:54 Nucleated RBC % (auto) 0 % 12/17/23 05:49 Nucleated RBCs # 0.0 /100WBC 12/17/23 05:49 Sodium 141 mmol/L (136-145) 12/17/23 05:49 Potassium 4.1 mmol/L (3.5-5.1) 12/17/23 05:49 Chloride 109 mmol/L (98-107) H 12/17/23 05:49 Carbon Dioxide 22 mmol/L (22-29) 12/17/23 05:49 Anion Gap 14.1 (5-19) 12/17/23 05:49 BUN 15 mg/dL (8-23) 12/17/23 05:49 Creatinine 1.2 mg/dL (0.7-1.2) 12/17/23 05:49 GFR Calculation Not Reportable 12/17/23 05:49 Glucose 95 mg/dL (65-115) 12/17/23 05:49 Estimat Average Glucose 108 12/15/23 02:38 Hemoglobin A1c 5.4 % (4.0-6.0) 12/15/23 02:38 Calculated Osmolality 293 mOsm/kg (285-295) 12/17/23 05:49 Lactic Acid 1.3 mmol/L (0.5-2.2) 12/14/23 12:43 Calcium 8.4 mg/dL (8.5-10.5) L 12/17/23 05:49 Phosphorus 3.5 mg/dL (2.5-4.5) 12/15/23 02:38 Magnesium 1.8 mg/dL (1.7-2.3) 12/17/23 05:49 Iron 107 ug/dL (59-158) 12/14/23 12:43 TIBC 271 mcg/dl 12/14/23 12:43 % Saturation 39.4 % (20-50) 12/14/23 12:43 Unsat Iron Binding 164 ug/dL (112-347) 12/14/23 12:43 Total Bilirubin 0.4 mg/dL (0.15-1.2) 12/17/23 05:49 AST 9 U/L (0-40) 12/17/23 05:49 ALT 11 U/L (0-41) 12/17/23 05:49 Alkaline Phosphatase 49 U/L (40-130) 12/17/23 05:49 Troponin T Baseline 24 ng/L (0-15) H 12/14/23 12:43 Troponin T 120 Minute 21.71 ng/L (0-15) H 12/14/23 14:26 Delta Troponin T -2.29 ABS# (0-10) L 12/14/23 14:26 NT-Pro-B Natriuret Pep 1271 pg/mL (0-125) H 12/14/23 12:43 Total Protein 5.5 g/dL (6.6-8.7) L 12/17/23 05:49 Albumin 3.3 g/dL (3.5-5.2) L 12/17/23 05:49 Globulin 2.2 g/dL (1.3-4.6) 12/17/23 05:49 Triglycerides 103 mg/dL (0-150) 12/15/23 02:38 Cholesterol 174 mg/dL (0-200) 12/15/23 02:38 LDL Cholesterol, Calc 117 mg/dL (50-129) 12/15/23 02:38 HDL Cholesterol 36 mg/dL (60-100) L 12/15/23 02:38 LDL/HDL Ratio 3.25 RATIO (0.00-3.22) H 12/15/23 02:38 Cholesterol/HDL Ratio 4.83 mg/dL (1.0-5.00) 12/15/23 02:38 Vitamin B12 396 pg/mL (232-1245) 12/14/23 12:43 Folate 6.6 ng/mL (4.5-32.2) 12/15/23 02:38 Procalcitonin 0.05 ng/mL (0-0.5) 12/14/23 12:43 TSH 0.95 uIU/mL (0.27-4.20) 12/14/23 12:43 Urine Color Yellow (Yellow) 12/14/23 12:30 Urine Appearance Clear (CLEAR) 12/14/23 12:30 Urine pH 5 (5-7) 12/14/23 12:30 Ur Specific [place] 1.020 (1.005-1.030) 12/14/23 12:30 Urine Protein Neg (Negative) 12/14/23 12:30 Urine Glucose (UA) Norm (Normal) 12/14/23 12:30 Urine Ketones Negative (Negative) 12/14/23 12:30 Urine Blood Neg (Negative) 12/14/23 12:30 Urine Nitrate Negative (Negative) 12/14/23 12:30 Urine Bilirubin Neg (Negative) 12/14/23 12:30 Urine Urobilinogen Norm mg/dL (Negative) 12/14/23 12:30 Ur Leukocyte Esterase Negative (Negative) 12/14/23 12:30 Urine RBC None /hpf (0-2) 12/14/23 12:30 Urine WBC Rare /hpf (0-5) 12/14/23 12:30 Ur Squamous Epith Cells Rare /hpf (0-5) 12/14/23 12:30 Amorphous Sediment Not Reportable 12/14/23 12:30 Urine Bacteria None /hpf (NONE) 12/14/23 12:30 Ur Random Sodium 157 mmol/L 12/14/23 12:43 Ur Random Potassium 46 mmol/L 12/14/23 12:43 Ur Random Chloride 175 mmol/L 12/14/23 12:43 Urine Creatinine 123 mg/dL (39-259) 12/14/23 12:43 Urine Opiates Screen Negative ng/mL (Negative) 12/14/23 12:43 Ur Barbiturates Screen Negative ng/mL (Negative) 12/14/23 12:43 Ur Phencyclidine Scrn Negative ng/mL (Negative) 12/14/23 12:43 Ur Amphetamines Screen Negative ng/mL (Negative) 12/14/23 12:43 U Benzodiazepines Scrn Negative ng/mL (Negative) 12/14/23 12:43 Urine Cocaine Screen Negative ng/mL (Negative) 12/14/23 12:43 U Marijuana (THC) Screen Negative ng/mL (Negative) 12/14/23 12:43 Adenovirus (PCR) Not detected (NOT DETECT) 12/16/23 22:03 C. pneumoniae DNA (PCR) Not detected (NOT DETECT) 12/16/23 22:03 Coronavirus 229E (PCR) Not detected (NOT DETECT) 12/16/23 22:03 Human Metapneumovir PCR Not detected (NOT DETECT) 12/16/23 22:03 Influenza A (H1) PCR Not detected (NOT DETECT) 12/16/23 22:03 Influ A (H1/09) PCR Not detected (NOT DETECT) 12/16/23 22:03 Influenza A (H3) PCR Not detected (NOT DETECT) 12/16/23 22:03 Influenza Type A (PCR) Not detected (NOT DETECT) 12/16/23 22:03 Influenza Type B (PCR) Not detected (NOT DETECT) 12/16/23 22:03 M. pneumoniae (PCR) Not detected (NOT DETECT) 12/16/23 22:03 Parainfluenza 1 (PCR) Not detected (NOT DETECT) 12/16/23 22:03 Parainfluenza 2 (PCR) Not detected (NOT DETECT) 12/16/23 22:03 Parainfluenza 3 (PCR) Not detected (NOT DETECT) 12/16/23 22:03 Parainfluenza 4 (PCR) Not detected (NOT DETECT) 12/16/23 22:03 RSV Type A (PCR) Not detected (NOT DETECT) 12/16/23 22:03 RSV Type B (PCR) Not detected (NOT DETECT) 12/16/23 22:03 Entero/Rhino (PCR) Not detected (NOT DETECT) 12/16/23 22:03 SARS-CoV-2 (PCR) Not detected (NOT DETECT) 12/16/23 22:03 Other data: Echocardiogram from 12/15/2023 LV systolic function is borderline low with EF of 45 to 50%. Grade 1 diastolic dysfunction Left atrial dilation Mild mitral regurgitation Trace pulmonic regurgitation Compared to prior echocardiogram from 07/2023, no significant changes are seen. Cardiac catheterization on 12/15/2023 Diagnostic Findings * INDICATION: Ventricular tachycardia. * Left Main has mild 30-40% disease in distal vessel. * Circumflex has patent prior stent in proximal segment. * Proximal Right Coronary Artery: subtotal occlusion, [place]: 2flow. * Mid Right Coronary Artery:chronic total occlusion, EL[place]: 0 flow. * Ascending Aorta to Distal Right Coronary Artery graft: known occluded. Not engaged. * Ascending Aorta to OM 1 SVG graft is patent. * Mid Left Anterior Descending: chronic total occlusion, ELTON: 0 flow. * Left Internal Mammary Artery to Distal Left Anterior Descending graft: patent. * First Obtuse Marginal Branch Segment: severe 90% stenosis, ELTON: 3 flow. * Coronary angiography shows right dominance. A&P Assessment and plan (1) Ventricular tachycardia: Patient currently is on IV amiodarone. No recurrence of V. tach. Hemodynamically seems to be stable. Will continue on the current medications. Patient has a history of frequent PVCs and nonsustained ventricular tachycardia in the past. Most likely related to previous MIs and myocardial scarring (2) Atherosclerotic heart disease: Status post cardiac catheterization. Angiogram findings as mentioned above. Patient has severe three-vessel coronary disease with total occlusion of the proximal RCA and mid LAD. Patent STRONG to the LAD. 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 Patent venous graft to the obtuse marginal 1 artery. [id number] collaterals. Will continue on the current medications. Qualifiers: Coronary Disease-Associated Artery/Lesion type: [place] artery [place] vs. transplanted heart: [place] heart Associated angina: with stable angina Qualified Code(s): I25.118 - Atherosclerotic heart disease of [place] coronary artery with other forms of angina pectoris (3) Ischemic cardiomyopathy: LV ejection fraction was 45 to 50% by echocardiogram. No evidence of any heart failure. Will continue on the current medications. (4) Hyperlipidemia: Continue on the current medications. Qualifiers: Hyperlipidemia type: mixed hyperlipidemia Qualified Code(s): E78.2 - Mixed hyperlipidemia Plan The patient requires an internal cardiac defibrillator for further management of his condition. He would like to have it done as soon as possible. I contacted Dr. Blount at the [facility] regarding this. Dr. Osorio is planning to have this procedure done probably on Sunday. Will continue on the current medications for the time being Attestations 2 Medical Necessity Statement*: Patient requires continued hospital stay for close monitoring and further management Coding Level of Care Code 39802 Diagnoses Ventricular tachycardia I47.20 Atherosclerosis of [place] coronary artery of [place] heart with stable angina pectoris I25.118 Coronary Disease-Associated Artery/Lesion type: [place] artery [place] vs. transplanted heart: [place] heart Associated angina: with stable angina Ischemic cardiomyopathy I25.5 Mixed hyperlipidemia E78.2 Hyperlipidemia type: mixed hyperlipidemia
--- NOTE | 2023-12-17 13:08 | PC.NURSE ---
Report called to EMRE Mabry in [facility].
--- NOTE | 2023-12-17 13:14 | P.CONIM_ITS ---
Providers/Reason For Consult 2 Consulting Physician/Specialty*: Dr. Prieto/cardiothoracic surgery Reason for Consult*: Request for AICD implantation Requesting Physician: Dr. Hernández Attending Physician: Vivian Wang MD Primary Care Provider: Zoë Patterson MD History of Present Illness History of Present Illness Mauro Green is a 73 year old male who was admitted on October 13 after presenting to the emergency room complaining of dizziness and episodes of near syncope. He also complained of some heaviness in his jaw and left arm. He has a history of prior CABG x 3 in 2016 and PCI in 2020. Echocardiogram on December 14 revealed ejection fraction of 45 to 50% which is unchanged from a prior study of July of this year. On his first hospital day he had a 2 to 3-minute episode of ventricular tachycardia. Again he had dizziness but did not lose consciousness. V. tach broke with a vagal maneuver. He had another shorter episode shortly thereafter which also spontaneously terminated. Hospital day #1 he was also noted to have some blood in his stool. He is a history of ulcerative colitis for the past year and states he takes a suppository for this. He is on clear as to what that is. CT scan of the abdomen and pelvis from December 15 revealed wall thickening of the rectosigmoid colon with associated inflammation which would be consistent with colitis. He was initiated on amiodarone with improvement of his arrhythmia. Left heart catheterization was performed by Dr. Shields on hospital day #1. Again these findings are similar to a previous catheterization, revealing patent STRONG to LAD and patent vein graft to the OMB. The RCA is [employer] and has an occluded graft. Cardiology recommended AICD. Review of Systems 2 Const: Denies: fever(s), chills, change in appetite, change in weight, fatigue or night sweats Eyes: Denies: change in vision or blurry vision ENMT: Denies: odynophagia or hoarseness Card: Denies: chest pain or edema Resp: Denies: dyspnea or productive cough GI: Denies: abdominal pain, nausea, vomiting, dysphagia, heartburn or change in bowel habits : Denies: difficulty urinating, dysuria, urinary frequency, urinary urgency or urinary hesitancy Musc: Denies: extremity pain or extremity swelling Skin/Breast: Denies: rash Neuro: Denies: headache(s), numbness in extremities, weakness in extremities or sensory changes Psych: Denies: anxiety, depression or change in appetite Endo: Denies: polyuria, polydipsia or cold intolerance Murali/Lymph: Denies: easy bruising, easy bleeding, petechiae or enlarged lymph nodes Medications/Allergies Home Medications Medication Instructions Recorded Confirmed Last Taken Type celecoxib 200 mg capsule 200 mg PO BID 12/12/21 12/14/23 12/14/23 History sacubitril 97 mg-valsartan 103 mg 1 tab PO BID #180 tabs 02/28/23 12/14/23 12/14/23 Rx tablet (Entresto) spironolactone 25 mg tablet 25 mg PO DAILY #30 tabs 10/29/23 12/14/23 12/14/23 Rx amlodipine 5 mg tablet 5 mg PO DAILY 12/14/23 12/14/23 12/14/23 History clopidogrel 75 mg tablet 75 mg PO DAILY 12/14/23 12/14/23 12/14/23 History ezetimibe 10 mg tablet 10 mg PO DAILY 12/14/23 12/14/23 12/14/23 History furosemide 20 mg tablet (Lasix) 20 mg PO DAILY PRN Edema 12/14/23 12/14/23 Unknown History levothyroxine 100 mcg tablet 100 mcg PO DAILY 12/14/23 12/14/23 12/14/23 History metoprolol tartrate 25 mg tablet 25 mg PO BID 12/14/23 12/14/23 12/14/23 History omeprazole 20 mg capsule,delayed 20 mg PO DAILY 12/14/23 12/14/23 12/14/23 History release potassium chloride 8 mEq 8 meq PO DAILY PRN Edema 12/14/23 12/14/23 Unknown History capsule,extended release Allergies Allergy/AdvReac Type Severity Reaction Status Date / Time hydrocodone Allergy Unknown Unknown Verified 07/08/23 06:36 oxycodone Allergy Unknown Unknown Verified 07/08/23 06:36 furosemide AdvReac Intermediate ADR/ALGY-Hy Verified 08/31/23 14:59 potension carvedilol AdvReac erectile Verified 07/08/23 06:36 dysfunction simvastatin AdvReac muscle pain Verified 07/08/23 06:36 Current Medications Generic Name Dose Route Start Last Admin Trade Name Freq PRN Reason Stop Dose Admin Amiodarone HCl 400 mg 12/16/23 11:25 12/17/23 08:54 Amiodarone 200 Mg Tablet PO 400 mg BID GISELE Administration Amlodipine Besylate 5 mg 12/15/23 09:00 12/16/23 09:37 Amlodipine 5 Mg Tablet PO 5 mg DAILY GISELE Administration Bisacodyl 10 mg 12/14/23 15:28 12/15/23 08:16 Bisacodyl 5 Mg Tablet PO 10 mg DAILY PRN Administration Constipation (see protocol) Protocol Clopidogrel Bisulfate 75 mg 12/15/23 09:00 12/17/23 08:54 Clopidogrel 75 Mg Tablet PO 75 mg DAILY GISELE Administration Ezetimibe 10 mg 12/15/23 09:00 12/17/23 08:54 Ezetimibe 10 Mg Tablet PO 10 mg DAILY GISELE Administration Piperacillin Sod/Tazobactam 50 mls @ 12.5 mls/hr 12/16/23 22:00 12/17/23 09:18 Sod 3.375 gm/ Sodium Chloride IV Infused Q8H GISELE Infusion Levothyroxine Sodium 88 mcg 12/15/23 09:00 12/17/23 08:53 Levothyroxine 88 Mcg Tablet PO 88 mcg DAILY GISELE Administration Metoprolol Tartrate 12.5 mg 12/15/23 21:00 12/17/23 08:55 Metoprolol Tartrate 25 Mg Tablet PO 12.5 mg BID@0900,2100 GISELE Administration Pantoprazole Sodium 40 mg 12/16/23 15:45 12/17/23 03:18 Pantoprazole 40 Mg Sdv IVP 40 mg Q12H GISELE Administration PFSH Acute 2 PFSH: Medical History Vitamin D deficiency Hypothyroidism Intermittent claudication Osteoarthritis Cardiac LV ejection fraction 21-30% Hyperlipidemia Atherosclerotic heart disease Afib Cardiomyopathy Hypertension Surgical History History of PTCA History of partial thyroidectomy History of total knee arthroplasty History of open reduction and internal fixation (ORIF) procedure Hx of repair of rotator cuff Hx of foot surgery Hx of cataract extraction Hx of CABG History of endarterectomy Family History Family/Other Cancer Hypertension Diabetes Grandmother CAD (coronary artery disease) Brother CAD (coronary artery disease) Chronic kidney disease (CKD) Father CAD (coronary artery disease) Hypertension Mother Hypertension Sister Cancer Denies family history of Clotting disorder Dementia Suicide Anesthesia complication Bleeding disorder Lung disease Stroke Social History Smoking and tobacco/nicotine status: never used tobacco/nicotine Alcohol intake: never Substance/Drug Use: never Vitals/I&O/Wt Last Vital Signs Temp 98.0 F 12/17/23 12:19 Pulse 55 L 12/17/23 09:00 Resp 17 12/17/23 09:00 BP 133/69 12/17/23 09:00 Pulse Ox 92 12/17/23 09:00 O2 Del Method Room Air 12/17/23 04:00 12/16/23 12/17/23 12/17/23 22:59 06:59 14:59 Intake Total 400 / 1172.8 50 / 1222.8 1004 / 1004 Output Total 850 / 850 600 / 1450 Balance -450 / 322.8 -550 / -227.2 1004 / 1004 Weight last 48 hrs Weight 197 lb 14.4 oz Weight 198 lb 5 oz Weight 198 lb 1.6 oz Physical Exam 2 Const: COMMON NORMALS: patient oriented x3 and alert O RIENTATION/CONSCIOUSNESS: Yes oriented to person, Yes oriented to place and Yes oriented to time HENMT: COMMON NORMALS: normocephalic HEAD & SCALP: normocephalic; no cranial bruits Neck/C-Spine: COMMON NORMALS: full ROM, supple, no JVD and No carotid bruits GENERAL: Yes trachea midline CERVICAL SPINE: Yes cervical ROM normal Chest: COMMONS NORMALS: normal inspection of the chest and normal palpation of entire chest wall Resp: COMMON NORMALS: normal respiratory effort, No use of accessory muscles, clear to auscultation bilaterally and percussion normal EFFORT & INSPECTION: Yes able to speak in complete sentences and Yes symmetric chest movement A USCULTATION: clear to auscultation bilaterally PERCUSSION: percussion normal Cardio: COMMON NORMALS: no JVD, regular rate, regular rhythm, S1 normal heart sound present, S2 normal heart sound present, No gallops present (Cardio), No murmurs present (Cardio) and No rub (Cardio) JUGULAR VENOUS DISTENTION: no JVD RATE: regular rate RHYTHM: regular rhythm HEART SOUNDS: S1 normal heart sound present and S2 normal heart sound present Extremity: COMMON NORMALS: full ROM and no clubbing, cyanosis or edema N ARRATIVE EXTREMITY EXAM: There is a warm, erythematous, and firm area in the right antecubital fossa from a previous IV. He is currently been on Zosyn and treatment for presumed IV associated cellulitis. Neuro: COMMON NORMALS: patient oriented x3, no focal motor deficits and no sensory deficits noted SENSORIUM/ORIENTATION: Yes alert, Yes oriented to person, Yes oriented to place and Yes oriented to time GAIT: Yes Normal gait present Data 12/17/23 05:49 12/17/23 05:49 A&P Assessment and plan (1) Ventricular arrhythmia: Pleasant 73-year-old gentleman with no history for coronary disease status post CABG and PCI. There are no new findings on recent catheterization as compared to an earlier catheterization of 2020. Mr. Green has had no further noted arrhythmia since Sunday. He is now on oral amiodarone. He has 1 more dose of Zosyn for cellulitis of the right antecubital fossa. Recommendation: I would recommend holding on acute AICD implantation related to 1. Plavix administration, he did receive a dose this morning. 2. Cellulitis of the right antecubital fossa. 3. Blood per rectum, presumably related to his colitis. He has not received his normal suppository for this since his admission. I would recommend placement of a LifeVest, holding Plavix, confirming resolution of his right antecubital fossa cellulitis, and resumption of his rectal suppository for his colitis. I recommend AICD implantation for 1 week, December 24, 2023. Surgical date for 7 AM has been graciously provided by our surgical department despite the fact that is not my surgical date. I discussed this very frankly with Mr. Green as to my rationale and tentative plans. He has discussed with family and appears in agreement. Details and risk of AICD implantation were discussed. Risks discussed included major bleeding, infection requiring device explantation, pneumothorax which may require chest tube, pain at the surgical site, inability to place the device or migration of the lead requiring early revision, need for overnight hospital stay to allow for IV antibiotics as well as postop day #1 early reinterrogation to confirm device is still functioning appropriately, and need for long-term follow-up. He is agreeable. Coding Level of Care Code Acute Code for Chg Fwd Diagnoses Ventricular arrhythmia I49.9
--- NOTE | 2023-12-17 14:06 | PC.NURSE ---
Patient transferred from ICU to CSU today at 1348.
--- NOTE | 2023-12-17 14:27 | P.PN_ITS ---
Subjective 2 Subjective: seen today awaiting aicd Vitals/I&O/Wt Last Vital Signs Temp 98.0 F 12/17/23 12:19 Pulse 55 L 12/17/23 09:00 Resp 17 12/17/23 09:00 BP 133/69 12/17/23 09:00 Pulse Ox 92 12/17/23 09:00 O2 Del Method Room Air 12/17/23 04:00 12/16/23 12/17/23 12/17/23 22:59 06:59 14:59 Intake Total 400 / 1172.8 50 / 1222.8 1004 / 1004 Output Total 850 / 850 600 / 1450 Balance -450 / 322.8 -550 / -227.2 1004 / 1004 Weight last 48 hrs Weight 89.766 kg Weight 89.953 kg Weight 89.857 kg Physical Exam 2 Narrative: General: No acute distress, AO x3, anxious HEENT: PERRLA, pupils bilaterally equal and reactive Chest: Normal vesicular breath sounds, no added sounds, equal good air entry bilaterally CVS: S1-S2 regular, no murmurs, bradycardia , no gallops, no rubs Abdomen: Soft, nontender, no organomegaly, bowel sounds present Neuro: No focal deficits, no facial deformity, Data 12/17/23 05:49 12/17/23 05:49 A&P Assessment and plan (1) Near syncope: Presyncope episode along with weakness and fatigue ongoing for last few weeks worsened today. Found to have bradycardia with bigeminy and frequent VPCs in the ER. Patient having episodes of nonsustained V. tach. High likelihood of presyncope secondary to nonsustained V. tach versus bradycardia. Telemetry. Troponin cycled negative. Blood pressures have been soft while home dose of Entresto has been withheld. Could be in setting of soft blood pressures even at home. Patient has remained euvolemic. Hold off on diuretics. Monitor electrolytes with potassium target around 4, magnesium around 2. Appreciate cardiology recommendations. Fall precautions, aspiration precaution. (2) Ventricular tachycardia: Monomorphic. Underwent cardiac angiogram on 12/14 which ruled out ischemic nature. Angiogram showed unchanged coronary anatomy. He had patent STRONG to LAD and SVG to OM with prior proximal LCx stent patent. For scar VT. Ventricular ectopy has decreased. Amiodarone 40 mg oral twice daily. Stop amiodarone drip as per protocol. Patient will need ICD for secondary prevention. Will consult Dr. Osborn in AM. Keep magnesium around 2, potassium around 4. Monitor QTc. Continue with metoprolol 12.5 mg twice daily. (3) Bradycardia: Continue to monitor. Heart rate improved to 90s. Start on low-dose beta- [place] as because of episode of ventricular tachycardia as above. (4) Bloody stools: Gets chronic history. Follows up with a physician at [facility]. Concerns for ulcerative proctitis. Hemoglobin has remained stable. Protonix 40 mg IV twice daily. CT abdomen pelvis with contrast today as patient's creatinine has remained stable and has been 24 hours post cardiac angiogram. Continue to monitor. (5) Bigeminy: (6) Ischemic cardiomyopathy: Repeat echocardiogram done today shows an EF of 45 to 50% with mild global LV hypokinesia, grade 1 diastolic dysfunction, mild MR. Hold off on diuretics. Normal saline 50 cc/h for gentle hydration for 1 bag. (7) Hx of CABG: No regional wall motion normality on echocardiogram. Echocardiogram as above. Continue with home dose of Plavix, ezetimibe. Appreciate A1c, lipid panel. Cycle troponins. Plan Acute kidney injury: Baseline creatinine around 1.1. Resolved. Gentle hydration as above. Hypertension: Goal blood pressure less than 140/90 mmHg. Blood pressures have been soft. Continue to hold off on home dose of amlodipine and Entresto. CODE STATUS: Discussed in detail with the patient. He is okay with ICU admission, pacemaker implantation but not okay with chest compressions or resuscitation. Limited resuscitation CODE STATUS Cardiac diet Protonix OPD prophylaxis Heparin 5000 every 12 hourly for DVT prophylaxis Transfer to [facility]. Todays plan 12/16 - consult CTS. - continue current medications - metoprolol 12.5 bid - amio 400 mg bid - cardiology following - continue to monitor on tele - ct abd pelvis showed rectrosigmoid colitis - Will inquire about home colitis medications for patient. Attestations 2 Medical Necessity Statement*: Requires further hospitalization for management of ventricular tachycardia as patient requires ICD for secondary prevention, bloody bowel movement with possible past history of ulcerative colitis in a patient with history of CABG Diagnoses Near syncope R55 Ventricular tachycardia I47.20 Bradycardia R00.1 Bloody stools K92.1 Bigeminy I49.8 Ischemic cardiomyopathy I25.5 Hx of CABG Z95.1
--- NOTE | 2023-12-17 14:28 | PC.SOCIAL ---
IMM Updated Updated pt on IMM. No questions voiced. Provided pt a copy. Initialed, dated, & timed a copy & placed in chart.
[2023-12-18] VITALS (7 sets, daily range): BP systolic 132–163; BP diastolic 71–93; PULSE 53–65; RESP 18–23; TEMP 36.5–36.9; O2SAT 92–94
[2023-12-18] MEDS: acetaminophen 325 mg Tablet 650 MG PO (03:32)
[2023-12-18] MEDS: pantoprazole 40 mg SDV IVP ×2 (03:33→18:18)
--- NOTE | 2023-12-18 03:53 | PC.NURSE ---
pt called out about right arm hurting upon inspecting arm, surrounding the IV in forearm was red like the right AC is from previous IV this week. This nurse DCed IV and started a new one in left arm. made aware.
[2023-12-18 04:11] LABS: Basophils # 0.1 10^3/uL (0.0-0.1); Basophils % 0.7 %; Eosinophils # 0.4 10^3/uL (0.0-0.8); Eosinophils % 5.6 %; Hematocrit 51.2 % (37-53); Lymphocytes # 1.7 10^3/uL (0.8-4.8); Mean Corpuscular HGB Conc 32.8 g/dL (30-55); Mean Corpuscular Hemoglobin 28.8 pg (27-33); Mean Corpuscular Volume 87.7 fl (82-101); Mean Platelet Volume 10.1 fL (7.4-10.4); Monocytes # 0.6 10^3/uL (0.2-0.9); Monocytes % 8.9 %; Neutrophils # 4.12 10^3/uL (1.8-7.7); Neutrophils % 59.4 %; Nucleated Red Blood Cells % 0 %; Platelet Count 176 10^3/cmm (157-399); Red Blood Count 5.84 10^6/uL (3.85-5.65); White Blood Count 6.95 10^3/uL (3.29-11.43)
[2023-12-18 04:33] LABS: Anion Gap 16.1 (5-19); Blood Urea Nitrogen 16 mg/dL (8-23); Calcium 8.9 mg/dL (8.5-10.5); Carbon Dioxide 25 mmol/L (22-29); Chloride 104 mmol/L (98-107); Glucose 93 mg/dL (65-115); Osmolality Calculated 293 mOsm/kg (285-295); Potassium 4.1 mmol/L (3.5-5.1); Sodium 141 mmol/L (136-145)
[2023-12-18 04:38] LABS: Magnesium 1.9 mg/dL (1.7-2.3)
[2023-12-18] MEDS: piperacillin-tazobactam 3.375 GM in sodium chloride 0.9% (plus) 50 ML IV ×2 (05:21→13:46)
--- NOTE | 2023-12-18 08:04 | P.TS_ITS ---
Transfer Summary Providers Date of Admission: 12/14/23 14:03 Date of Discharge/Transfer: 12/18/23 Attending Provider at Admission: Capo Rocha MD Attending Provider at Transfer: Vivian Wang MD Primary Care Provider: Zoë Patterson MD Transfer Plans: Anticipated date of transfer: 12/18/23 . Diagnoses at Discharge Discharge Diagnosis (1) Ventricular tachycardia: Status: Acute (2) Atherosclerotic heart disease: Status: Acute Qualifiers: Associated angina: with stable angina Coronary Disease-Associated Artery/Lesion type: [place] artery [place] vs. transplanted heart: [place] heart Qualified Code(s): I25.118 - Atherosclerotic heart disease of [place] coronary artery with other forms of angina pectoris (3) Ischemic cardiomyopathy: Status: Acute (4) Hyperlipidemia: Status: Acute Qualifiers: Hyperlipidemia type: mixed hyperlipidemia Qualified Code(s): E78.2 - Mixed hyperlipidemia (5) Bradycardia: Status: Acute (6) [place]: Status: Acute (7) Near syncope: Status: Acute (8) Bloody stools: Status: Acute Reason for Visit Reason for Visit stroke like symptoms Hospital Course Hospital Course Patient is a 73-year-old male with past medical history of CAD status post CABG thousand 17, PCI 2020, ischemic cardiomyopathy which is improved to 43% in 2021, hypothyroidism was brought into the ER today with complaints of dizziness. His episodes of almost passing out. He has been for near syncope. Bradycardia was noted on telemetry. Patient had 2 episodes of V. tach on telemetry. He had severe dizziness and presyncope at that point to lose consciousness. Started on amiodarone drip and transition to l. he did have a coronary angiogram done with possible PCI however coronaries were patent. VT confirmed to be scarless. ICD has been recommended at this time. Currently her hospital does not have the capability of providing an AICD and therefore this will be sometime next week therefore discussion was done with patient and decision made to transfer to higher level of care for AICD placement. Dr. Hernández discussed with Dr. Blount marketing services manager at [facility] and patient has been accepted for transfer at this time. Currently patient is pending bed availability. Patient has been noted to have bradycardic episodes therefore metoprolol that was being given in addition to amiodarone has been stopped today. Heart rate was as low as 32 overnight. Patient is currently stable and will be transferred to [place] for higher level of care. Should there be any new events or changes to management I will update this transfer summary. Of note patient does have a history of ulcerative colitis and is on chronic mesalamine suppository. Currently that is not on formulary. We have asked patient's to bring it from home so we can administer it. Physical Exam Narrative: General: No acute distress, AO x3, anxious HEENT: PERRLA, pupils bilaterally equal and reactive Chest: Normal vesicular breath sounds, no added sounds, equal good air entry bilaterally CVS: S1-S2 regular, no murmurs, bradycardia , no gallops, no rubs Abdomen: Soft, nontender, no organomegaly, bowel sounds present Neuro: No focal deficits, no facial deformity, TS Data Studies Completed and Pending Pending at discharge Category Date Time Status Blood Culture Stat Lab 12/14/23 14:26 Results Completed Studies During Hospitalization Category Date Time Status CT abdomen pelvis w con* [id number] Routine Cat Scan 12/16/23 15:38 Completed [employer] request for service Routine Exams 12/15/23 14:15 Completed XR chest 1V portable [id number] Stat Exams 12/14/23 12:32 Completed CV. echo complete* [id number] Routine Ultrasound 12/15/23 08:40 Completed Laboratory Last Values WBC 6.95 10^3/uL (3.29-11.43) 12/18/23 03:42 Corrected WBC Cancelled 12/17/23 03:54 RBC 5.84 10^6/uL (3.85-5.65) H 12/18/23 03:42 Hgb 16.80 g/dL (11.27-16.99) 12/18/23 03:42 Hct 51.2 % (37-53) 12/18/23 03:42 MCV 87.7 fl (82-101) 12/18/23 03:42 MCH 28.8 pg (27-33) 12/18/23 03:42 MCHC 32.8 g/dL (30-55) 12/18/23 03:42 RDW 14.0 % (12.1-15.1) 12/18/23 03:42 Plt Count 176 10^3/cmm (157-399) 12/18/23 03:42 MPV 10.1 fL (7.4-10.4) 12/18/23 03:42 Gran % Cancelled 12/17/23 03:54 Neut % (Auto) 59.4 % 12/18/23 03:42 Lymph % (Auto) 25.0 % 12/18/23 03:42 [place] % (Auto) 8.9 % 12/18/23 03:42 Eos % (Auto) 5.6 % 12/18/23 03:42 Baso % (Auto) 0.7 % 12/18/23 03:42 Neut # (Auto) 4.12 10^3/uL (1.8-7.7) 12/18/23 03:42 Lymph # (Auto) 1.7 10^3/uL (0.8-4.8) 12/18/23 03:42 [place] # (Auto) 0.6 10^3/uL (0.2-0.9) 12/18/23 03:42 Eos # (Auto) 0.4 10^3/uL (0.0-0.8) 12/18/23 03:42 Baso # (Auto) 0.1 10^3/uL (0.0-0.1) 12/18/23 03:42 Absolute Gran (auto) Cancelled 12/17/23 03:54 Nucleated RBC % (auto) 0 % 12/18/23 03:42 Nucleated RBCs # 0.0 /100WBC 12/18/23 03:42 Sodium 141 mmol/L (136-145) 12/18/23 03:42 Potassium 4.1 mmol/L (3.5-5.1) 12/18/23 03:42 Chloride 104 mmol/L (98-107) 12/18/23 03:42 Carbon Dioxide 25 mmol/L (22-29) 12/18/23 03:42 Anion Gap 16.1 (5-19) 12/18/23 03:42 BUN 16 mg/dL (8-23) 12/18/23 03:42 Creatinine 1.5 mg/dL (0.7-1.2) H 12/18/23 03:42 GFR Calculation Not Reportable 12/18/23 03:42 Glucose 93 mg/dL (65-115) 12/18/23 03:42 Estimat Average Glucose 108 12/15/23 02:38 Hemoglobin A1c 5.4 % (4.0-6.0) 12/15/23 02:38 Calculated Osmolality 293 mOsm/kg (285-295) 12/18/23 03:42 Lactic Acid 1.3 mmol/L (0.5-2.2) 12/14/23 12:43 Calcium 8.9 mg/dL (8.5-10.5) 12/18/23 03:42 Phosphorus 3.5 mg/dL (2.5-4.5) 12/15/23 02:38 Magnesium 1.9 mg/dL (1.7-2.3) 12/18/23 03:42 Iron 107 ug/dL (59-158) 12/14/23 12:43 TIBC 271 mcg/dl 12/14/23 12:43 % Saturation 39.4 % (20-50) 12/14/23 12:43 Unsat Iron Binding 164 ug/dL (112-347) 12/14/23 12:43 Total Bilirubin 0.4 mg/dL (0.15-1.2) 12/17/23 05:49 AST 9 U/L (0-40) 12/17/23 05:49 ALT 11 U/L (0-41) 12/17/23 05:49 Alkaline Phosphatase 49 U/L (40-130) 12/17/23 05:49 Troponin T Baseline 24 ng/L (0-15) H 12/14/23 12:43 Troponin T 120 Minute 21.71 ng/L (0-15) H 12/14/23 14:26 Delta Troponin T -2.29 ABS# (0-10) L 12/14/23 14:26 NT-Pro-B Natriuret Pep 1271 pg/mL (0-125) H 12/14/23 12:43 Total Protein 5.5 g/dL (6.6-8.7) L 12/17/23 05:49 Albumin 3.3 g/dL (3.5-5.2) L 12/17/23 05:49 Globulin 2.2 g/dL (1.3-4.6) 12/17/23 05:49 Triglycerides 103 mg/dL (0-150) 12/15/23 02:38 Cholesterol 174 mg/dL (0-200) 12/15/23 02:38 LDL Cholesterol, Calc 117 mg/dL (50-129) 12/15/23 02:38 HDL Cholesterol 36 mg/dL (60-100) L 12/15/23 02:38 LDL/HDL Ratio 3.25 RATIO (0.00-3.22) H 12/15/23 02:38 Cholesterol/HDL Ratio 4.83 mg/dL (1.0-5.00) 12/15/23 02:38 Vitamin B12 396 pg/mL (232-1245) 12/14/23 12:43 Folate 6.6 ng/mL (4.5-32.2) 12/15/23 02:38 Procalcitonin 0.05 ng/mL (0-0.5) 12/14/23 12:43 TSH 0.95 uIU/mL (0.27-4.20) 12/14/23 12:43 Urine Color Yellow (Yellow) 12/14/23 12:30 Urine Appearance Clear (CLEAR) 12/14/23 12:30 Urine pH 5 (5-7) 12/14/23 12:30 Ur Specific [place] 1.020 (1.005-1.030) 12/14/23 12:30 Urine Protein Neg (Negative) 12/14/23 12:30 Urine Glucose (UA) Norm (Normal) 12/14/23 12:30 Urine Ketones Negative (Negative) 12/14/23 12:30 Urine Blood Neg (Negative) 12/14/23 12:30 Urine Nitrate Negative (Negative) 12/14/23 12:30 Urine Bilirubin Neg (Negative) 12/14/23 12:30 Urine Urobilinogen Norm mg/dL (Negative) 12/14/23 12:30 Ur Leukocyte Esterase Negative (Negative) 12/14/23 12:30 Urine RBC None /hpf (0-2) 12/14/23 12:30 Urine WBC Rare /hpf (0-5) 12/14/23 12:30 Ur Squamous Epith Cells Rare /hpf (0-5) 12/14/23 12:30 Amorphous Sediment Not Reportable 12/14/23 12:30 Urine Bacteria None /hpf (NONE) 12/14/23 12:30 Ur Random Sodium 157 mmol/L 12/14/23 12:43 Ur Random Potassium 46 mmol/L 12/14/23 12:43 Ur Random Chloride 175 mmol/L 12/14/23 12:43 Urine Creatinine 123 mg/dL (39-259) 12/14/23 12:43 Urine Opiates Screen Negative ng/mL (Negative) 12/14/23 12:43 Ur Barbiturates Screen Negative ng/mL (Negative) 12/14/23 12:43 Ur Phencyclidine Scrn Negative ng/mL (Negative) 12/14/23 12:43 Ur Amphetamines Screen Negative ng/mL (Negative) 12/14/23 12:43 U Benzodiazepines Scrn Negative ng/mL (Negative) 12/14/23 12:43 Urine Cocaine Screen Negative ng/mL (Negative) 12/14/23 12:43 U Marijuana (THC) Screen Negative ng/mL (Negative) 12/14/23 12:43 Adenovirus (PCR) Not detected (NOT DETECT) 12/16/23 22:03 C. pneumoniae DNA (PCR) Not detected (NOT DETECT) 12/16/23 22:03 Coronavirus 229E (PCR) Not detected (NOT DETECT) 12/16/23 22:03 Human Metapneumovir PCR Not detected (NOT DETECT) 12/16/23 22:03 Influenza A (H1) PCR Not detected (NOT DETECT) 12/16/23 22:03 Influ A (H1/09) PCR Not detected (NOT DETECT) 12/16/23 22:03 Influenza A (H3) PCR Not detected (NOT DETECT) 12/16/23 22:03 Influenza Type A (PCR) Not detected (NOT DETECT) 12/16/23 22:03 Influenza Type B (PCR) Not detected (NOT DETECT) 12/16/23 22:03 M. pneumoniae (PCR) Not detected (NOT DETECT) 12/16/23 22:03 Parainfluenza 1 (PCR) Not detected (NOT DETECT) 12/16/23 22:03 Parainfluenza 2 (PCR) Not detected (NOT DETECT) 12/16/23 22:03 Parainfluenza 3 (PCR) Not detected (NOT DETECT) 12/16/23 22:03 Parainfluenza 4 (PCR) Not detected (NOT DETECT) 12/16/23 22:03 RSV Type A (PCR) Not detected (NOT DETECT) 12/16/23 22:03 RSV Type B (PCR) Not detected (NOT DETECT) 12/16/23 22:03 Entero/Rhino (PCR) Not detected (NOT DETECT) 12/16/23 22:03 SARS-CoV-2 (PCR) Not detected (NOT DETECT) 12/16/23 22:03 Radiology Impressions Chest X-Ray 12/14/23 12:32 IMPRESSION: No radiographic evidence of acute cardiopulmonary disease in this patient status post CABG Abdomen/Pelvis CT 12/16/23 15:38 IMPRESSION: There is colitis of the rectosigmoid colon.Clinical correlation is advised. COMMENTS: Consistent with the [employer]'s Incidental Findings Committee white paper (J Am Susana Radiol 2018): Any incidental renal lesion less than 1 cm or classified as too small to characterize, or any incidental cystic renal lesion characterized as simple-appearing, is likely benign. No follow-up imaging is recommended for these lesions per consensus recommendations based on imaging criteria. Recent Clincial Data Last Vital Signs Temp 98.1 F 12/18/23 07:40 Pulse 61 12/18/23 07:40 Resp 23 H 12/18/23 07:40 BP 163/85 12/18/23 07:40 Pulse Ox 92 12/18/23 07:40 O2 Del Method Room Air 12/18/23 07:40 Vital Signs Temp Pulse Resp BP Pulse Ox O2 Del Method 12/18/23 07:40 98.1 F 61 23 H 163/85 92 Room Air 12/18/23 06:00 53 L 12/18/23 04:00 97.7 F 59 L 19 H 132/71 93 Room Air 12/18/23 00:00 54 L 12/17/23 23:00 97.8 F 55 L 17 139/69 93 Room Air 12/17/23 22:00 53 L 12/17/23 22:00 75 25 H 122/64 94 12/17/23 21:00 122/64 Intake & Output/Weight 12/16/23 12/17/23 12/18/23 12/19/23 06:59 06:59 06:59 06:59 Intake Total 1903.314 / 9411.129 3320.8 / 1222.8 2342.75 / 2342.75 Output Total 1400 / 1400 1450 / 1450 Balance 503.314 / 503.314 -227.2 / -227.2 2342.75 / 2342.75 Weight 89.857 kg 89.766 kg 90.038 kg Vitals Last Vital Signs Temp 98.1 F 12/18/23 07:40 Pulse 61 12/18/23 07:40 Resp 23 H 12/18/23 07:40 BP 163/85 12/18/23 07:40 Pulse Ox 92 12/18/23 07:40 O2 Del Method Room Air 12/18/23 07:40 TS Medications Medications Acetaminophen (Acetaminophen 325 Mg Tablet) 650 mg PO Q6H PRN PRN Reason: Mild/Mod Pain Or Temp >/= 101 Last Admin: 12/18/23 03:32 Dose: 650 mg Amiodarone HCl (Amiodarone 200 Mg Tablet) 400 mg PO BID [facility] Last Admin: 12/17/23 17:13 Dose: 400 mg Amlodipine Besylate (Amlodipine 5 Mg Tablet) 5 mg PO DAILY [facility] Last Admin: 12/16/23 09:37 Dose: 5 mg Bisacodyl (Bisacodyl 5 Mg Tablet) 10 mg PO DAILY PRN; Protocol PRN Reason: Constipation (see protocol) Last Admin: 12/15/23 08:16 Dose: 10 mg Clopidogrel Bisulfate (Clopidogrel 75 Mg Tablet) 75 mg PO DAILY [facility] Last Admin: 12/17/23 08:54 Dose: 75 mg Ezetimibe (Ezetimibe 10 Mg Tablet) 10 mg PO DAILY [facility] Last Admin: 12/17/23 08:54 Dose: 10 mg Piperacillin Sod/Tazobactam (Sod 3.375 gm/ Sodium Chloride) 50 mls @ 12.5 mls/hr IV Q8H [facility] Last Admin: 12/18/23 05:21 Dose: 12.5 mls/hr Lactulose (Lactulose Oral Liq 20 Gm/30 Ml Udc) 10 gm PO DAILY PRN; Protocol PRN Reason: Constipation (see protocol) Levothyroxine Sodium (Levothyroxine 88 Mcg Tablet) 88 mcg PO DAILY [facility] Last Admin: 12/17/23 08:53 Dose: 88 mcg Magnesium Hydroxide (Magnesium Hydroxide 30 Ml Udc) 30 ml PO DAILY PRN; Protocol PRN Reason: Constipation (see protocol) Metoprolol Tartrate (Metoprolol Tartrate 25 Mg Tablet) 12.5 mg PO BID@0900,2100 [facility] Last Admin: 12/17/23 21:26 Dose: Not Given Morphine Sulfate (Morphine 4 Mg/Ml Sdv 1 Ml) 2 mg IVP Q4H PRN PRN Reason: SEVERE PAIN Ondansetron HCl (Ondansetron 2 Mg/Ml Sdv 2 Ml) 4 mg IVP Q8H PRN PRN Reason: vomiting, or N/V if npo Pantoprazole Sodium (Pantoprazole 40 Mg Sdv) 40 mg IVP Q12H [facility] Last Admin: 12/18/23 03:33 Dose: 40 mg Discontinued Medications Amiodarone HCl (Amiodarone 50 Mg/Ml Sdv 3 Ml) 150 mg IVP ONCE ONE Stop: 12/15/23 13:45 Last Admin: 12/15/23 15:53 Dose: Not Given Fentanyl (Fentanyl 50 Mcg/Ml Inj 2ml) Confirm Administered Dose 100 mcg .ROUTE .STK-MED ONE Stop: 12/15/23 14:18 Heparin Sodium (Porcine) (Heparin 5,000 Unit/Ml Inj 1 Ml) 5,000 unit SUBCUT Q12H [facility] Last Admin: 12/15/23 17:33 Dose: Not Given Heparin Sodium (Porcine) (Heparin 5,000 Unit/Ml Inj 1 Ml) Confirm Administered Dose 5,000 unit .ROUTE .STK-MED ONE Stop: 12/15/23 14:18 Sodium Chloride (Sodium Chloride 0.9%) 1,000 mls @ 50 mls/hr IV .Q20H [facility] Stop: 12/15/23 11:25 Last Infusion: 12/15/23 12:01 Dose: Infused Amiodarone HCl/Dextrose (Nexterone) 360 mg in 200 mls @ 0 mls/hr IV .Q0M [facility]; Protocol Last Titration: 12/16/23 19:05 Dose: Infused Magnesium Sulfate/Dextrose (Magnesium Sulfate Premix) 1 gm in 100 mls @ 200 mls/hr IV ONCE ONE Stop: 12/15/23 13:44 Last Infusion: 12/15/23 13:56 Dose: Infused Amiodarone HCl/Dextrose (Nexterone) 150 mg in 100 mls @ 400 mls/hr IV ONCE ONE Stop: 12/15/23 14:03 Last Infusion: 12/15/23 14:21 Dose: Infused Lidocaine HCl (Xylocaine) Confirm Administered Dose 20 mls @ as directed .ROUTE .STK-MED ONE Stop: 12/15/23 14:19 Magnesium Sulfate/Dextrose (Magnesium Sulfate Premix) 1 gm in 100 mls @ 200 mls/hr IV ONCE ONE Stop: 12/16/23 10:59 Last Infusion: 12/16/23 11:57 Dose: Infused Sodium Chloride (Sodium Chloride 0.9%) 1,000 mls @ 50 mls/hr IV .Q20H [facility] Stop: 12/17/23 12:59 Last Infusion: 12/17/23 16:46 Dose: Infused Iohexol (Iohexol 350 Mg/Ml 500 Ml Btl (Per Ml)) 0 ml IV ONCE ONE Stop: 12/16/23 18:55 Last Admin: 12/16/23 18:55 Dose: 100 ml Metoprolol Tartrate (Metoprolol Tartrate 25 Mg Tablet) 12.5 mg PO ONCE ONE Stop: 12/15/23 15:41 Last Admin: 12/15/23 17:26 Dose: 12.5 mg Midazolam HCl (Midazolam 1 Mg/Ml Inj 2 Ml) Confirm Administered Dose 2 mg .ROUTE .STK-MED ONE Stop: 12/15/23 14:18 Nitroglycerin (Nitroglycerin 5 Mg/Ml Sdv 10 Ml) Confirm Administered Dose 50 mg .ROUTE .STK-MED ONE Stop: 12/15/23 14:18 Pantoprazole Sodium (Pantoprazole 40 Mg Sdv) 40 mg IVP Q24H [facility] Last Admin: 12/16/23 16:44 Dose: Not Given Allergies hydrocodone Allergy (Unknown, Verified 07/08/23 06:36) Unknown oxycodone Allergy (Unknown, Verified 07/08/23 06:36) Unknown furosemide Adverse Reaction (Intermediate, Verified 08/31/23 14:59) ADR/ALGY-Hypotension carvedilol Adverse Reaction (Verified 07/08/23 06:36) erectile dysfunction simvastatin Adverse Reaction (Verified 07/08/23 06:36) muscle pain Home Medications celecoxib 200 mg capsule 200 mg PO BID 12/12/21 [History Confirmed 12/14/23] sacubitril 97 mg-valsartan 103 mg tablet (Entresto) 1 tab PO BID #180 tabs 02/28/23 [Rx Confirmed 12/14/23] spironolactone 25 mg tablet 25 mg PO DAILY #30 tabs 10/29/23 [Rx Confirmed 12/14/23] amlodipine 5 mg tablet 5 mg PO DAILY 12/14/23 [History Confirmed 12/14/23] clopidogrel 75 mg tablet 75 mg PO DAILY 12/14/23 [History Confirmed 12/14/23] ezetimibe 10 mg tablet 10 mg PO DAILY 12/14/23 [History Confirmed 12/14/23] furosemide 20 mg tablet (Lasix) 20 mg PO DAILY PRN Edema 12/14/23 [History Conf irmed 12/14/23] levothyroxine 100 mcg tablet 100 mcg PO DAILY 12/14/23 [History Confirmed 12/14/23] metoprolol tartrate 25 mg tablet 25 mg PO BID 12/14/23 [History Confirmed 12/14/23] omeprazole 20 mg capsule,delayed release 20 mg PO DAILY 12/14/23 [History Confirmed 12/14/23] potassium chloride 8 mEq capsule,extended release 8 meq PO DAILY PRN Edema 12/14/23 [History Confirmed 12/14/23] Discharge Plan Discharge Patient Disposition: Home Condition: Stable Prescriptions: No Action celecoxib 200 mg capsule 200 mg PO BID Entresto 97-103 mg tablet 1 tab PO BID Qty: 180 3RF spironolactone 25 mg tablet 25 mg PO DAILY Qty: 30 1RF levothyroxine 100 mcg tablet 100 mcg PO DAILY omeprazole 20 mg capsule,delayed release(DR/EC) 20 mg PO DAILY potassium chloride 8 mEq capsule, extended release 8 meq PO DAILY PRN (Reason: Edema) clopidogrel 75 mg tablet 75 mg PO DAILY amlodipine 5 mg tablet 5 mg PO DAILY Lasix 20 mg tablet 20 mg PO DAILY PRN (Reason: Edema) ezetimibe 10 mg tablet 10 mg PO DAILY metoprolol tartrate 25 mg tablet 25 mg PO BID Referrals: Zoë Patterson MD [Primary Care Provider] - (Please call Dr. Patterson's Office on Sunday at [phone] to schedule a follow up appointment. Thank you.) Virginia Mtz FNP [Nurse Practitioner] - Patient Instructions: Heart Failure (DC), Coronary Angioplasty (DC), CHF Stoplight, Opioid Safety, Post Angiogram Home Care Instructions Transfer Attestations Time Spent in Transfer Care: greater than 30 min Quality Metrics Clinical Quality Measures [ No reported AMI, CVA or VTE this stay] Coding Level of Care Code Acute Code for Chg Fwd Diagnoses Ventricular tachycardia I47.20 Atherosclerosis of [place] coronary artery of [place] heart with stable angina pectoris I25.118 Associated angina: with stable angina Coronary Disease-Associated Artery/Lesion type: [place] artery [place] vs. transplanted heart: [place] heart Ischemic cardiomyopathy I25.5 Mixed hyperlipidemia E78.2 Hyperlipidemia type: mixed hyperlipidemia Bradycardia R00.1 [place] I49.8 Near syncope R55 Bloody stools K92.1
[2023-12-18] MEDS: levothyroxine 88 mcg Tablet PO (08:51)
[2023-12-18] MEDS: amiodarone 200 mg Tablet 400 MG PO ×2 (08:52→18:18)
[2023-12-18] MEDS: ezetimibe 10 mg Tablet PO (08:52)
--- NOTE | 2023-12-18 13:07 | P.PN_ITS ---
Subjective 2 Subjective: Patient is feeling okay. No new symptoms. Vitals are stable. Medications: Medication Review Details: Current Medications Acetaminophen (Acetaminophen 325 Mg Tablet) 650 mg PO Q6H PRN PRN Reason: Mild/Mod Pain Or Temp >/= 101 Last Admin: 12/18/23 03:32 Dose: 650 mg Amiodarone HCl (Amiodarone 200 Mg Tablet) 400 mg PO BID [facility] Last Admin: 12/18/23 08:52 Dose: 400 mg Amlodipine Besylate (Amlodipine 5 Mg Tablet) 5 mg PO DAILY [facility] Last Admin: 12/16/23 09:37 Dose: 5 mg Bisacodyl (Bisacodyl 5 Mg Tablet) 10 mg PO DAILY PRN; Protocol PRN Reason: Constipation (see protocol) Last Admin: 12/15/23 08:16 Dose: 10 mg Clopidogrel Bisulfate (Clopidogrel 75 Mg Tablet) 75 mg PO DAILY [facility] Last Admin: 12/18/23 08:50 Dose: Not Given Ezetimibe (Ezetimibe 10 Mg Tablet) 10 mg PO DAILY [facility] Last Admin: 12/18/23 08:52 Dose: 10 mg Piperacillin Sod/Tazobactam (Sod 3.375 gm/ Sodium Chloride) 50 mls @ 12.5 mls/hr IV Q8H [facility] Last Infusion: 12/18/23 09:45 Dose: Infused Lactulose (Lactulose Oral Liq 20 Gm/30 Ml Udc) 10 gm PO DAILY PRN; Protocol PRN Reason: Constipation (see protocol) Levothyroxine Sodium (Levothyroxine 88 Mcg Tablet) 88 mcg PO DAILY [facility] Last Admin: 12/18/23 08:51 Dose: 88 mcg Magnesium Hydroxide (Magnesium Hydroxide 30 Ml Udc) 30 ml PO DAILY PRN; Protocol PRN Reason: Constipation (see protocol) Metoprolol Tartrate (Metoprolol Tartrate 25 Mg Tablet) 12.5 mg PO BID@0900,2100 [facility] Last Admin: 12/17/23 21:26 Dose: Not Given Morphine Sulfate (Morphine 4 Mg/Ml Sdv 1 Ml) 2 mg IVP Q4H PRN PRN Reason: SEVERE PAIN Ondansetron HCl (Ondansetron 2 Mg/Ml Sdv 2 Ml) 4 mg IVP Q8H PRN PRN Reason: vomiting, or N/V if npo Pantoprazole Sodium (Pantoprazole 40 Mg Sdv) 40 mg IVP Q12H [facility] Last Admin: 12/18/23 03:33 Dose: 40 mg Vitals/I&O/Wt Last Vital Signs Temp 98.1 F 12/18/23 12:00 Pulse 65 12/18/23 12:00 Resp 21 H 12/18/23 12:00 BP 154/76 12/18/23 12:00 Pulse Ox 94 12/18/23 12:00 O2 Del Method Room Air 12/18/23 12:00 12/17/23 12/18/23 12/18/23 22:59 06:59 14:59 Intake Total 1288.75 / 2292.75 50 / 2342.75 410 / 410 Balance 1288.75 / 2292.75 50 / 2342.75 410 / 410 Weight last 48 hrs Weight 197 lb 2 oz Weight 198 lb 8 oz Weight 198 lb 8 oz Weight 197 lb 14.4 oz Physical Exam 2 Narrative: GENERAL: The patient is alert and oriented times three. Not in any acute distress. HEENT: No significant pallor, icterus or lymphadenopathy.Oral cavity: There are no mucous membrane lesions. NECK: Trachea appears to be central. No masses noted. No JVD or thyromegaly appreciated. RESPIRATORY: Chest is symmetrical. No intercostals muscle retraction or any accessory muscle activation. There is no chest wall tenderness. Breath sounds are heard bilaterally. No rales or rhonchi heard. No evidence of any consolidation. BREASTS: Deferred. HEART: The heart sounds are normal. No S3 or S4. Short systolic murmur in the lower sternal border. No diastolic murmurs.. No pericardial rub ABDOMEN: No vessel pulsations or distention. No tenderness. No organomegaly appreciated. Bowel sounds are normally heard. : Deferred. RECTAL: Deferred. LYMPHATIC: No lymphadenopathy noted in the neck. EXTREMITIES: No edema or cyanosis. No clubbing. MUSCULOSKELETAL: No acute joint deformities or swelling SKIN: There are no significant rashes or ecchymosis NEUROPSYCHIATRIC: The patient is alert and oriented x3. Appears to be in a good mood. No tremors or rigidity noted. Data 12/18/23 03:42 12/18/23 03:42 A&P Assessment and plan (1) Ventricular tachycardia: Patient currently is on IV amiodarone. No recurrence of V. tach. Hemodynamically seems to be stable. Will continue on the current medications. Patient has a history of frequent PVCs and nonsustained ventricular tachycardia in the past. Most likely related to previous MIs and myocardial scarring (2) Atherosclerotic heart disease: Status post cardiac catheterization. Angiogram findings as mentioned above. Patient has severe three-vessel coronary disease with total occlusion of the proximal RCA and mid LAD. Patent STRONG to the LAD. 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 Patent venous graft to the obtuse marginal 1 artery. [id number] collaterals. Will continue on the current medications. Qualifiers: Associated angina: with stable angina Coronary Disease-Associated Artery/Lesion type: [place] artery [place] vs. transplanted heart: [place] heart Qualified Code(s): I25.118 - Atherosclerotic heart disease of [place] coronary artery with other forms of angina pectoris (3) Ischemic cardiomyopathy: LV ejection fraction was 45 to 50% by echocardiogram. No evidence of any heart failure. Will continue on the current medications. (4) Hyperlipidemia: Continue on the current medications. Qualifiers: Hyperlipidemia type: mixed hyperlipidemia Qualified Code(s): E78.2 - Mixed hyperlipidemia Plan The patient requires an internal cardiac defibrillator for further management of his condition. He would like to have it done as soon as possible. I contacted Dr. Blount at the [facility] regarding this. Dr. Osorio is planning to have this procedure done probably on Sunday. Will continue on the current medications for the time being Attestations 2 Medical Necessity Statement*: Patient requires continued hospital stay for close monitoring and further management Coding Level of Care Code 14465 Diagnoses Ventricular tachycardia I47.20 Atherosclerosis of [place] coronary artery of [place] heart with stable angina pectoris I25.118 Associated angina: with stable angina Coronary Disease-Associated Artery/Lesion type: [place] artery [place] vs. transplanted heart: [place] heart Ischemic cardiomyopathy I25.5 Mixed hyperlipidemia E78.2 Hyperlipidemia type: mixed hyperlipidemia
--- NOTE | 2023-12-18 21:53 | PC.NURSE ---
pt left via EMS around 2149, this nurse notified pt's that he left the facility and also called [facility] to let them know he is on his way to them.
== END 2023-12-18 21:50 | disposition short-term general hospital (02) | DRG 287 ==
LOC: ER 13:24 → CSU 14:04 → ICU 12-15 19:28 → CSU 12-17 13:38
PROVIDERS: Internal Medicine; Admitting Provider Student in an Organized Health Care Education/Training Program; Emergency Provider Emergency Medicine; PCP Family Medicine; Visit Provider Internal Medicine
PROC: B2111ZZ Fluoroscopy of Multiple Coronary Arteries using Low Osmolar Contrast (ICD-10-PCS; principal; 2023-12-15 14:30)
DX: I47.20 Ventricular tachycardia, unspecified (principal); K92.1 Melena; N17.9 Acute kidney failure, unspecified; I25.118 Atherosclerotic heart disease of native coronary artery with other forms of angina pectoris; I25.5 Ischemic cardiomyopathy; E78.5 Hyperlipidemia, unspecified; R00.1 Bradycardia, unspecified; R00.8 Other abnormalities of heart beat; R55 Syncope and collapse; Z95.1 Presence of aortocoronary bypass graft; I50.9 Heart failure, unspecified; I11.0 Hypertensive heart disease with heart failure; E03.9 Hypothyroidism, unspecified; Z79.02 Long term (current) use of antithrombotics/antiplatelets
CPT/HCPCS: 36415; 71045; 74177; 80048; 80053; 80061; 80306; 81001; 82436; 82570; 82607; 82746; 83036; 83540; 83550; 83605; 83735; 83880; 84100; 84133; 84145; 84300; 84443; 84484; 85025; 86403; 87040; 87486; 87581; 87633; 93005; 93306; 93455; 94664; 96365; 96366; 96367; 96372; 96374; 96375; 96376; 99152; 99153; 99285; A4222; C1760; C1769; C1887; C1894; C9113; G0269; J0283; J1644; J2250; J2543; J3010; J3475; J3490; J7030; Q9967